=== PATIENT | female | born 1965 ===

== ENCOUNTER 2017-07-17 11:58 | Emergency (ER) | payer OTHER ==
[2017-07-17 12:16] VITALS: O2SAT 100
[2017-07-17] MEDS ORDERED: Oxycodone/Acetaminophen 5/325 mg Tab PO STA (12:57)
--- NOTE | 2017-07-17 12:57 | C.PDOC ---
History Of Present Illness 51-year-old female, presents to the emergency department with complaints of pain to lower teeth #31 and #32. Patient states she had an extraction done two days ago, and was placed on Amoxicillin, Motrin and Tylenol #3 with minimal relief, prompting visit. Denies nausea/vomiting, numbness/weakness. Time Seen by Provider: 07/17/17 12:08 Chief Complaint (Nursing): Dental Pain History Per: Patient History/Exam Limitations: no limitations Past Medical History Reviewed: Historical Data, Nursing Documentation, Vital Signs Vital Signs: Last Vital Signs Temp 98.4 F 07/17/17 13:16 Pulse 68 07/17/17 13:16 Resp 16 07/17/17 13:16 BP 128/82 07/17/17 13:16 Pulse Ox 100 07/17/17 15:55 - Medical History PMH: Depression, HTN Surgical History: Appendectomy, Cholecystectomy Family History: States: No Known Family Hx - Social History Hx Tobacco Use: No Hx Alcohol Use: Yes Hx Substance Use: No - Immunization History Hx Tetanus Toxoid Vaccination: No Hx Influenza Vaccination: No Hx Pneumococcal Vaccination: No Review Of Systems Except As Marked, All Systems Reviewed And Found Negative. Constitutional: Negative for: Fever ENT: Positive for: Other (tooth pain) Respiratory: Negative for: Shortness of Breath Gastrointestinal: Negative for: Vomiting Physical Exam - Physical Exam Appears: Non-toxic, No Acute Distress Skin: Warm, Dry, No Rash Head: Atraumatic, Normacephalic Eye(s): bilateral: Normal Inspection, PERRL, EOMI Nose: Normal Oral Mucosa: Moist Lips: Normal Appearing Teeth: Other (moderate swelling and tenderness +induration to lower right mandible. No fluctuance.) Throat: No Erythema, No Exudate, No Drooling Neck: Normal ROM Chest: Symmetrical Cardiovascular: Rhythm Regular, No Murmur Respiratory: Normal Breath Sounds, No Accessory Muscle Use Extremity: Normal ROM, No Deformity, No Swelling Neurological/Psych: Oriented x3, Normal Speech ED Course And Treatment O2 Sat by Pulse Oximetry: 100 Medical Decision Making Medical Decision Making: Dr. Thompson has examined the patient at bedside and agrees that there is no fluctuance or ability to drain at this time. Patient was switched antibiotics from Amoxicillin to Clindamycin. The patient was instructed to follow up with Dr. Mercado in 24 hours without fail Disposition - Disposition Referrals: Vanessa Mercado, MANSI [Staff Provider] - Disposition: HOME/ ROUTINE Disposition Time: 13:14 Condition: FAIR Additional Instructions: Apply warm compresses to the region. Follow up with Dr. Mercado tomorrow without fail. Prescriptions: Clindamycin [Cleocin] 300 mg PO TID #30 cap oxyCODONE/Acetaminophen [Percocet 5/325 mg Tab] 1 tab PO QID PRN #10 tab PRN Reason: pain Instructions: Tooth Abscess (DC) Forms: [employer] (Armenian) - Clinical Impression Clinical Impression: Dental abscess - Scribe Statement The provider has reviewed the documentation as recorded by the Scribe (Margarita Cuevas) All medical record entries made by the Scribe were at my direction and personally dictated by me. I have reviewed the chart and agree that the record accurately reflects my personal performance of the history, physical exam, medical decision making, and the department course for this patient. I have also personally directed, reviewed, and agree with the discharge instructions and disposition.
[2017-07-17] MEDS ORDERED: Oxycodone/Acetaminophen 5/325 mg Tab ONE (13:12)
[2017-07-17 13:17] VITALS: BP 128/82; PULSE 68; RESP 16; TEMP 98.4
== END 2017-07-17 13:30 | disposition home or self-care (01) ==
LOC: C.ER 11:58
DX: K04.7 Periapical abscess without sinus (principal)

== ENCOUNTER 2018-04-30 17:33 | Inpatient (IN) | payer MEDICAID, OTHER ==
[2018-04-30 17:33] VITALS: BMI 29.1
[2018-04-30] MEDS ORDERED: Sodium Chloride 0.9% 500 ML IV ONE ×2 (18:18→18:24)
[2018-04-30 18:26] LABS: HCG,QUALITATIVE URINE NEGATIVE (NEGATIVE)
[2018-04-30 18:36] LABS: SQUAMOUS EPITHIAL 1 /hpf (0-5); URINE BACTERIA RARE (<OCC); URINE BILIRUBIN NEGATIVE (NEGATIVE); URINE BLOOD NEGATIVE (NEGATIVE); URINE CLARITY Hazy (Clear); URINE COLOR Yellow (YELLOW); URINE GLUCOSE (UA) NORMAL (Normal); URINE LEUKOCYTE ESTERASE NEG Leu/uL (Negative); URINE PROTEIN NEGATIVE (NEGATIVE); URINE UROBILINOGEN NORMAL mg/dL (0.2-1.0)
[2018-04-30 18:40] LABS: BASO # 0.1 K/uL (0.0-0.2); BASO % 0.7 % (0.0-2.0); EOS # 0.1 K/uL (0.0-0.7); EOS % 0.5 % (0.0-4.0); HEMOGLOBIN 13.4 g/dL (11.0-16.0); LYMPH # 2.3 K/uL (1.0-4.3); LYMPH % 16.8 % (20.0-40.0); MEAN CORPUSCULAR HGB CONC 32.3 g/dL (33.0-37.0); MEAN PLATELET VOLUME 9.4 fL (7.2-11.7); MONO # 1.3 K/uL (0.0-0.8); MONO % 9.7 % (0.0-10.0); NEUT # 9.8 K/uL (1.8-7.0); NEUT % 72.3 % (50.0-75.0); RBC 4.62 Mil/uL (3.80-5.20); RED CELL DISTRIBUTION WIDTH 13.2 % (11.5-14.5)
[2018-04-30 18:45] LABS: MEAN CELL VOLUME 89.7 fL (81.0-99.0); WHITE BLOOD COUNT 13.6 K/uL (4.8-10.8)
[2018-04-30 18:54] LABS: ALB/GLOB RATIO 1.6 (1.0-2.1); ALBUMIN 4.2 g/dL (3.5-5.0); ALT/SGPT 32 U/L (9-52); AST/SGOT 21 U/L (14-36); BLOOD UREA NITROGEN 12 mg/dL (7-17); GFR NON-AFRICAN AMERICAN > 60
--- NOTE | 2018-04-30 19:08 | C.PDOC ---
History Of Present Illness 52 year old female with a history of HTN, appendectomy, cholecystectomy, tubal ligation, and ankle surgery presents to the emergency department with complaints of suprapubic abdominal pain for the past 3 days. Patient states that her pain is associated with nausea, urinary frequency, and feeling bloated. Patient denies vomiting, diarrhea, and fever. <Joseph Barrett - Last Filed: 05/01/18 20:58> <Justine Griajlva - Last Filed: 04/30/18 23:26> History Per: Patient History/Exam Limitations: no limitations Onset/Duration Of Symptoms: Days (3) Current Symptoms Are (Timing): Still Present Location Of Pain/Discomfort: Suprapubic Quality Of Discomfort: "Pain" Associated Symptoms: Nausea, Urinary Symptoms (frequency). denies: Fever, Vomiting, Diarrhea <Joseph Barrett - Last Filed: 05/01/18 20:58> Time Seen by Provider: 04/30/18 18:05 Chief Complaint (Nursing): Female Genitourinary Past Medical History Vital Signs: Last Vital Signs Temp 99.8 F H 04/30/18 22:32 Pulse 76 04/30/18 22:32 Resp 04/30/18 22:32 BP 123/76 04/30/18 22:32 Pulse Ox 98 04/30/18 22:32 <Justine Grijalva - Last Filed: 04/30/18 23:26> Reviewed: Historical Data, Nursing Documentation, Vital Signs Vital Signs: Last Vital Signs Temp 101 F H 04/30/18 17:51 Pulse 88 04/30/18 17:51 Resp 04/30/18 17:51 BP 144/84 04/30/18 17:51 Pulse Ox 99 04/30/18 17:51 - Medical History PMH: Depression, HTN Denies: Chronic Kidney Disease Surgical History: Appendectomy, Cholecystectomy Other Surgeries: Tubal ligation, ankle surgery Family History: States: Unknown Family Hx - Social History Hx Tobacco Use: No Hx Alcohol Use: Yes Hx Substance Use: No - Immunization History Hx Tetanus Toxoid Vaccination: No Hx Influenza Vaccination: No Hx Pneumococcal Vaccination: No <Joseph Barrett - Last Filed: 05/01/18 20:58> Review Of Systems Except As Marked, All Systems Reviewed And Found Negative. Constitutional: Negative for: Fever, Chills Gastrointestinal: Positive for: Nausea, Abdominal Pain, Other (bloating). Negative for: Vomiting, Diarrhea Genitourinary: Positive for: Frequency <Joseph Barrett - Last Filed: 05/01/18 20:58> Physical Exam - Physical Exam Appears: Non-toxic, No Acute Distress Skin: Normal Color, Warm, Dry Head: Atraumatic, Normacephalic Eye(s): bilateral: Normal Inspection, PERRL, EOMI Nose: Normal Oral Mucosa: Moist Neck: Normal, Supple Chest: Symmetrical, No Tenderness Cardiovascular: Rhythm Regular, No Murmur Respiratory: Normal Breath Sounds, No Rales, No Rhonchi, No Wheezing Gastrointestinal/Abdominal: Soft, Tenderness (suprapubic), No Guarding, No Rebound Extremity: Normal ROM, No Pedal Edema, No Swelling Neurological/Psych: Oriented x3, Normal Speech, Normal Cognition <Joseph Barrett - Last Filed: 05/01/18 20:58> ED Course And Treatment - Laboratory Results Result Diagrams: 04/30/18 18:32 04/30/18 18:32 Lab Results: Total Bilirubin 0.5 mg/dL (0.2-1.3) 04/30/18 18:32 AST 21 U/L (14-36) 04/30/18 18:32 ALT 32 U/L (9-52) 04/30/18 18:32 Alkaline Phosphatase 72 U/L (38-126) 04/30/18 18:32 Total Protein 6.9 g/dL (6.3-8.3) 04/30/18 18:32 Albumin 4.2 g/dL (3.5-5.0) 04/30/18 18:32 Globulin 2.7 gm/dL (2.2-3.9) 04/30/18 18:32 Albumin/Globulin Ratio 1.6 (1.0-2.1) 04/30/18 18:32 Urine Color Yellow (YELLOW) 04/30/18 18:14 Urine Clarity Hazy (Clear) 04/30/18 18:14 Urine pH 7.0 (5.0-8.0) 04/30/18 18:14 Ur Specific [place] 1.018 (1.003-1.030) 04/30/18 18:14 Urine Protein Negative mg/dL (NEGATIVE) 04/30/18 18:14 Urine Glucose (UA) Normal mg/dL (Normal) 04/30/18 18:14 Urine Ketones Negative mg/dL (NEGATIVE) 04/30/18 18:14 Urine Blood Negative (NEGATIVE) 04/30/18 18:14 Urine Nitrate Negative (NEGATIVE) 04/30/18 18:14 Urine Bilirubin Negative (NEGATIVE) 04/30/18 18:14 Urine Urobilinogen Normal mg/dL (0.2-1.0) 04/30/18 18:14 Ur Leukocyte Esterase Neg Meena/uL (Negative) 04/30/18 18:14 Urine WBC (Auto) < 1 /hpf (0-5) 04/30/18 18:14 Urine RBC (Auto) 1 /hpf (0-3) 04/30/18 18:14 Ur Squamous Epith Cells 1 /hpf (0-5) 04/30/18 18:14 Urine Bacteria Rare (<OCC) 04/30/18 18:14 Urine HCG, Qual Negative (NEGATIVE) 04/30/18 18:14 Urine HCG, Qual Negative (NEGATIVE) 04/30/18 18:14 - CT Scan/US Ct abd/pelvis Other Rad Studies (CT/US): Read By Radiologist, Radiology Report Reviewed CT/US Interpretation: EXAM: CT Abdomen and Pelvis with IV and oral contrast. CLINICAL HISTORY: R/o abscess. TECHNIQUE: Axial computed tomography images of the abdomen and pelvis with intravenous contrast. 0.00 mGy-cm. CONTRAST: With; OMNI 240 & 100MLS VISI 320. COMPARISON: None provided. FINDINGS: LUNG BASES: The lung bases appear clear. No pleural effusions are seen. LIVER: Mi ld hepatomegaly. The liver measured an estimated 16.9 cm in the midclavicular line. Some mild hepatic steatosis is also noted. GALLBLADDER AND BILE DUCTS: Status post cholecystectomy. No biliary ductal dilatation is evident. PANCREAS: Unremarkable. SPLEEN: Unremarkable. ADRENAL GLANDS: Unremarkable. KIDNEYS, URETERS, AND BLADDER: The kidneys appear within normal limits. There is no hydr onephrosis or hydroureter. No urinary calculi are seen. The urinary bladder is normal in size and configuration. STOMACH AND BOWEL: Mucosal wall thickening seen in the mid body of the stomach and antrum compatible with gastritis. No evidence of bowel obstruction. No evidence suggesting enteritis. Diverticulosis coli identified in the sigmoid region with associated mucosal wall thickening and pericolonic stranding compatible with acute diverticulitis. Pericolonic inflammatory stranding extends into the mesenteric fat of the left adnexal region and posterior inferior left pelvis compatible with phlegmon formation. No definite abscess formation. No microperforation detected. APPENDIX: No evidence of acute appendicitis on CT examination. PERITONEUM: No free fluid. No free air. LYMPH NODES: No lymphadenopathy is evident. REPRODUCTIVE: Unremarkable as visualized. VASCULATURE: No evidence of abdominal aortic aneurysm. BONES: No aggressive appearing osseous lesion. No acute osseous pathology evident. IMPRESSION: 1. Acute diverticulitis of the sigmoid colon with adjacent mesenteritis/phlegmon of the left adnexal region and posterior inferior left pelvis. 2. Evidence of gastritis. 3. Hepatomegaly with associated hepatic steatosis. . Electronically signed on Apr 30, 2018 10:03:50 PM EST by: Erick Ross M.D., CHINTAN Certified By ABR & CBC[employer]. Fellowship Trained MRI and CT Specialist - Physician Consult Information Physician Contacted: Walter Velásquez Outcome Of Conversation: Case presented to Dr Velásquez for admission. Blood cx obtained and IV cipro and flagyl initiated <Justine Grijalva - Last Filed: 04/30/18 23:26> - Laboratory Results Result Diagrams: 05/01/18 11:45 05/01/18 11:45 Lab Results: Total Bilirubin 0.5 mg/dL (0.2-1.3) 04/30/18 18:32 AST 21 U/L (14-36) 04/30/18 18:32 ALT 32 U/L (9-52) 04/30/18 18:32 Alkaline Phosphatase 72 U/L (38-126) 04/30/18 18:32 Total Protein 6.9 g/dL (6.3-8.3) 04/30/18 18:32 Albumin 4.2 g/dL (3.5-5.0) 04/30/18 18:32 Globulin 2.7 gm/dL (2.2-3.9) 04/30/18 18:32 Albumin/Globulin Ratio 1.6 (1.0-2.1) 04/30/18 18:32 Urine Color Yellow (YELLOW) 04/30/18 18:14 Urine Clarity Hazy (Clear) 04/30/18 18:14 Urine pH 7.0 (5.0-8.0) 04/30/18 18:14 Ur Specific [place] 1.018 (1.003-1.030) 04/30/18 18:14 Urine Protein Negative mg/dL (NEGATIVE) 04/30/18 18:14 Urine Glucose (UA) Normal mg/dL (Normal) 04/30/18 18:14 Urine Ketones Negative mg/dL (NEGATIVE) 04/30/18 18:14 Urine Blood Negative (NEGATIVE) 04/30/18 18:14 Urine Nitrate Negative (NEGATIVE) 04/30/18 18:14 Urine Bilirubin Negative (NEGATIVE) 04/30/18 18:14 Urine Urobilinogen Normal mg/dL (0.2-1.0) 04/30/18 18:14 Ur Leukocyte Esterase Neg Meena/uL (Negative) 04/30/18 18:14 Urine WBC (Auto) < 1 /hpf (0-5) 04/30/18 18:14 Urine RBC (Auto) 1 /hpf (0-3) 04/30/18 18:14 Ur Squamous Epith Cells 1 /hpf (0-5) 04/30/18 18:14 Urine Bacteria Rare (<OCC) 04/30/18 18:14 Urine HCG, Qual Negative (NEGATIVE) 04/30/18 18:14 Urine HCG, Qual Negative (NEGATIVE) 04/30/18 18:14 O2 Sat by Pulse Oximetry: 99 (RA) Pulse Ox Interpretation: Normal <Joseph Barrett - Last Filed: 05/01/18 20:58> Medical Decision Making Medical Decision Making: Plan: CT Abdomen and Pelvis Chemistry CBC NaCl IV Fluids Tylenol 650mg PO Urine Culture Influenza Serology Urine Urinalysis Assessment: Suprapubic pain, rule out UTI <Joseph Barrett - Last Filed: 05/01/18 20:58> Disposition - Disposition Disposition Time: 23:26 <Justine Grijalva - Last Filed: 04/30/18 23:26> <Joseph Barrett - Last Filed: 05/01/18 20:58> - Disposition Disposition: HOSPITALIZED Condition: STABLE - Clinical Impression Clinical Impression: Acute diverticulitis - Scribe Statement The provider has reviewed the documentation as recorded by the Scribe (Vijay Avila) Provider Attestation: All medical record entries made by the Scribe were at my direction and personally dictated by me. I have reviewed the chart and agree that the record accurately reflects my personal performance of the history, physical exam, medical decision making, and the department course for this patient. I have also personally directed, reviewed, and agree with the discharge instructions and disposition. <Joseph Barrett - Last Filed: 05/01/18 20:58> Physician Patient Turnover Patient Signed Over To: Roverto Mancera <Joseph Barrett - Last Filed: 05/01/18 20:58>
[2018-04-30] MEDS ORDERED: Iohexol 240 (50 ml) PO ONE (19:09)
[2018-04-30] MEDS ORDERED: Iohexol 240 (50 ml) ONE (19:23)
[2018-04-30] MEDS ORDERED: Iodixanol 320 MG/ML 100 ML BOTTLE IV ONE (20:03)
[2018-04-30] MEDS ORDERED: Ciprofloxacin 400mg/200ml D5W 400 MG/200 ML BAG IV STA (22:49)
[2018-04-30] MEDS ORDERED: Ciprofloxacin 400mg/200ml D5W 400 MG/200 ML BAG IVPB ONE (22:56)
[2018-05-01] MEDS ORDERED: Sodium Chloride 0.9% 1,000 ML IV SCH (00:45)
--- NOTE | 2018-05-01 01:29 | CP.PCM.HP ---
<John Gandhi - Last Filed: 05/01/18 06:20> History of Present Illness - History of Present Illness History of Present Illness: PGY-[address] Velásquez Patient is a 52 year old female with PMHx HTN who presents with 3 days of abdominal pain. Patient states she has been having abdominal pain x3 days, worse in LLQ, denies n/v/d/c. Pain has been constant, and worsened, prompiting patient to present to ED. She also reports subjective fevers/chills which began today. She reports increased bloating and cramping pain. Reports last BM yesterday morning was normal, without diarrhea, blood, or changes in color. Pt without prior history of diverticulitis, has not had pain like this in the past. Patient has been tolerating regular diet. Patient does also report that over the past year she has felt more fatigued, with weight gain, and occasional myalgias, though no acute changes. Medical Hx: HTN Meds: Patient unsure of HTN meds (possibly Losartan 50 mg HS) - please confirm with pharmacy in AM Surgical hx: Lipoma removal, lap appy, lap paresh, tubal ligation, foot surgery Allergies: NKA Family hx: No known family hx Social hx: Denies tobacco use, occasional ETOH, uses marijuana recreationally and for insomnia/anxiety PMD: Dr. Mendes Code: Full Code Present on Admission - Present on Admission Any Indicators Present on Admission: No Review of Systems - Constitutional Constitutional: Chills, Fever. absent: Fatigue - EENT Eyes: absent: Blurred Vision, Photophobia - Cardiovascular Cardiovascular: absent: Chest Pain, Dyspnea, Edema - Respiratory Respiratory: absent: Dyspnea, Hemoptysis - Gastrointestinal Gastrointestinal: Abdominal Pain (widespread abdominal pain, worse LLQ), Bloating. absent: Constipation, Diarrhea, Nausea, Vomiting - Genitourinary Genitourinary: absent: Dysuria, Flank Pain - Musculoskeletal Musculoskeletal: absent: Back Pain, Neck Pain - Neurological Neurological: absent: Dizziness, Numbness, Focal Weakness - Psychiatric Psychiatric: absent: Anxiety, Depression Past Patient History - Infectious Disease Hx of Infectious Diseases: None - Past Medical History & Family History Past Medical History?: Yes - Past Social History Smoking Status: Never Smoked - CARDIAC Hx Hypertension: Yes - PULMONARY Hx Respiratory Disorders: No - HEENT Hx HEENT Problems: No - RENAL Hx Chronic Kidney Disease: No - ENDOCRINE/METABOLIC Hx Endocrine Disorders: No - HEMATOLOGICAL/ONCOLOGICAL Hx Blood Disorders: No - INTEGUMENTARY Hx Dermatological Problems: No - MUSCULOSKELETAL/RHEUMATOLOGICAL Hx Musculoskeletal Disorders: No Other/Comment: sciatica - GASTROINTESTINAL Hx Gastrointestinal Disorders: No - GENITOURINARY/GYNECOLOGICAL Hx Genitourinary Disorders: No - PSYCHIATRIC Hx Depression: Yes Hx Substance Use: No - SURGICAL HISTORY Hx Appendectomy: Yes Hx Cholecystectomy: Yes - ANESTHESIA Hx Anesthesia: Yes Hx Anesthesia Reactions: No Meds Allergies/Adverse Reactions: Allergies Allergy/AdvReac Type Severity Reaction Status Date / Time No Known Allergies Allergy Verified 04/30/18 17:52 Physical Exam - Constitutional Appears: Non-toxic, No Acute Distress - Head Exam Head Exam: ATRAUMATIC, NORMOCEPHALIC - Eye Exam Eye Exam: EOMI, Normal appearance - ENT Exam ENT Exam: Mucous Membranes Moist - Neck Exam Neck exam: Positive for: Full Rom - Respiratory Exam Respiratory Exam: Clear to Auscultation Bilateral, NORMAL BREATHING PATTERN. absent: Rhonchi, Wheezes - Cardiovascular Exam Cardiovascular Exam: REGULAR RHYTHM, +S1, +S2 - GI/Abdominal Exam GI & Abdominal Exam: Distended, Hyperactive Bowel Sounds, Soft, Tenderness (widespread tenderness, worse LLQ). absent: Hernia, Rebound - Extremities Exam Extremities exam: Positive for: normal inspection. Negative for: pedal edema, tenderness - Neurological Exam Neurological exam: Alert, CN II-XII Intact, Oriented x3 - Psychiatric Exam Psychiatric exam: Normal Affect, Normal Mood - Skin Skin Exam: Dry, Intact, Normal Color Results - Vital Signs Recent Vital Signs: Last Vital Signs Temp 99.3 F 05/01/18 00:28 Pulse 75 05/01/18 00:28 Resp 16 05/01/18 00:28 BP 125/79 05/01/18 00:28 Pulse Ox 96 05/01/18 00:28 - Labs Result Diagrams: 04/30/18 18:32 04/30/18 18:32 Labs: Laboratory Results - last 24 hr 04/30/18 04/30/18 04/30/18 18:14 18:32 18:32 WBC 13.6 H D RBC 4.62 Hgb 13.4 Hct 41.4 MCV 89.7 D MCH 29.0 MCHC 32.3 L RDW 13.2 Plt Count 244 MPV 9.4 Neut % (Auto) 72.3 Lymph % (Auto) 16.8 L [place] % (Auto) 9.7 Eos % (Auto) 0.5 Baso % (Auto) 0.7 Neut # (Auto) 9.8 H Lymph # (Auto) 2.3 [place] # (Auto) 1.3 H Eos # (Auto) 0.1 Baso # (Auto) 0.1 Sodium 137 Potassium 4.0 Chloride 101 Carbon Dioxide 30 Anion Gap 10 BUN 12 Creatinine 0.7 Est GFR ( Amer) > 60 Est GFR (Non-Af Amer) > 60 Random Glucose 91 Calcium 9.0 Total Bilirubin 0.5 AST 21 ALT 32 Alkaline Phosphatase 72 Total Protein 6.9 Albumin 4.2 Globulin 2.7 Albumin/Globulin Ratio 1.6 Urine Color Yellow Urine Clarity Hazy Urine pH 7.0 Ur Specific [place] 1.018 Urine Protein Negative Urine Glucose (UA) Normal Urine Ketones Negative Urine Blood Negative Urine Nitrate Negative Urine Bilirubin Negative Urine Urobilinogen Normal Ur Leukocyte Esterase Neg Urine WBC (Auto) < 1 Urine RBC (Auto) 1 Ur Squamous Epith Cells 1 Urine Bacteria Rare Urine HCG, Qual Negative Influenza Typ A,B (EIA) 04/30/18 19:27 WBC RBC Hgb Hct MCV MCH MCHC RDW Plt Count MPV Neut % (Auto) Lymph % (Auto) [place] % (Auto) Eos % (Auto) Baso % (Auto) Neut # (Auto) Lymph # (Auto) [place] # (Auto) Eos # (Auto) Baso # (Auto) Sodium Potassium Chloride Carbon Dioxide Anion Gap BUN Creatinine Est GFR ( Amer) Est GFR (Non-Af Amer) Random Glucose Calcium Total Bilirubin AST ALT Alkaline Phosphatase Total Protein Albumin Globulin Albumin/Globulin Ratio Urine Color Urine Clarity Urine pH Ur Specific [place] Urine Protein Urine Glucose (UA) Urine Ketones Urine Blood Urine Nitrate Urine Bilirubin Urine Urobilinogen Ur Leukocyte Esterase Urine WBC (Auto) Urine RBC (Auto) Ur Squamous Epith Cells Urine Bacteria Urine HCG, Qual Influenza Typ A,B (EIA) Negative for flu a/b Assessment & Plan - Assessment and Plan (Free Text) Assessment: Diverticulitis, gastritis Ct abd/pelvis 04/30 - IMPRESSION: 1. Acute diverticulitis of the sigmoid colon with adjacent mesenteritis/phlegmon of the left adnexal region and posterior inferior left pelvis. 2. Evidence of gastritis. 3. Hepatomegaly with associated hepatic steatosis. -Rocephin 1gm IV Daily -Flagyl 250 mg IV Q6 -NS @ 100 cc/hr -NPO, advance diet as tolerated -F/u Urine, blood cultures PPx -DVT ppx: Heparin 5000 UC SC Q8 Assessment and plan d/w Dr. Christen Gandhi, PGY-1 <Walter Velásquez P - Last Filed: 05/15/18 08:38> Results - Vital Signs Recent Vital Signs: Last Vital Signs Temp 98.2 F 05/11/18 08:22 Pulse 65 05/11/18 08:22 Resp 20 05/11/18 08:22 BP 113/77 05/11/18 08:22 Pulse Ox 95 05/11/18 08:22 - Labs Result Diagrams: 05/11/18 07:00 05/11/18 07:00 Attending/Attestation - Attestation I have personally seen and examined this patient.: Yes I have fully participated in the care of the patient.: Yes I have reviewed all pertinent clinical information: Yes Notes (Text): 05/15/18 08:38 Assessed patient with the resident and agree with the plan.
[2018-05-01] MEDS: metroNIDAZOLE IV 500 mg/100 ml 250 MG in Premixed IV 1 EA IVPB SCH ×2 (06:59→07:00)
--- NOTE | 2018-05-01 07:37 | CP.PCM.PN ---
<Keya Lees V - Last Filed: 05/01/18 18:42> Objective - Vital Signs/Intake and Output Vital Signs (last 24 hours): Temp Pulse Resp BP Pulse Ox 98 F 77 20 126/80 97 05/01/18 15:53 05/01/18 15:53 05/01/18 15:53 05/01/18 15:53 05/01/18 15:53 - Medications Medications: Current Medications Heparin Sodium (Porcine) (Heparin) 5,000 units SC Q8 [facility] Last Admin: 05/01/18 15:39 Dose: Not Given Sodium Chloride (Sodium Chloride 0.9%) 1,000 mls @ 125 mls/hr IV .Q8H [facility] Last Admin: 05/01/18 18:33 Dose: Not Given Piperacillin Sod/Tazobactam Sod (Zosyn 3.375 Gm Iv Premix) 3.375 gm in 50 mls @ 100 mls/hr IVPB Q6H [facility]; Protocol Last Admin: 05/01/18 17:30 Dose: 100 mls/hr Metronidazole (Flagyl) 500 mg in 100 mls @ 100 mls/hr IVPB Q8H [facility]; Protocol Morphine Sulfate (Morphine) 2 mg IVP Q4 PRN PRN Reason: Pain, severe (8-10) Ondansetron HCl (Zofran Inj) 4 mg IVP Q6 PRN PRN Reason: Nausea/Vomiting Pantoprazole Sodium (Protonix Inj) 40 mg IVP Q12H [facility] Last Admin: 05/01/18 11:56 Dose: 40 mg - Labs Labs: 05/01/18 11:45 05/01/18 11:45 PT 14.9 SECONDS (9.7-12.2) H 05/01/18 11:45 INR 1.4 05/01/18 11:45 APTT 35 SECONDS (21-34) H 05/01/18 11:45 Attending/Attestation - Attestation I have personally seen and examined this patient.: Yes I have fully participated in the care of the patient.: Yes I have reviewed all pertinent clinical information, including history, physical exam and plan: Yes Notes (Text): 52 year old female with history of hypertension and history of multiple abdominal surgeries including laparoscopic appendectomy, cholecystectomy, tubal ligation and foot surgery who presents for left lower quadrant pain for the past 3 days. We reviewed her medications at bedside that she was taking at home. She did attempt to use 3 tabs of Keflex 500 as well as meloxicam to try to reduce her pain. We did educate her at bedside to not use an NSAID in light of abdominal pain given that she may have an ulcer or gastritis which could be worsened by her NSAID use. She reports that she did have a prior endoscopy completed Dr. Calix's office [facility] about 2 years ago for abdominal bloating however he did not follow-up in regards to the report., 1. Acute diverticulitis of sigmoid colon Phlegmon of adjacent left adnexal region Assessment/plan * GI on board help appreciated * General surgery on board help appreciated * Noted at the time of my round prelim report of CAT scan was available noted for acute diverticulitis of sigmoid colon with adjacent mesenteritis/phlegmon of left adnexal region and portion of inferior left pelvis. Gastritis. Hepatomegaly with hepatic steatosis. * Official CAT scan report from May 01, 2018: Acute uncomplicated sigmoid diverticulitis. Severe circumferential mural thickening in the gastric pylorus is nonspecific could be correlated to nonspecific gastritis. Mild hepatomegaly and fatty liver. * We switched her antibiotics from Cipro and Flagyl to Zosyn for increased coverage * Note no NSAIDs * We did add his pain as needed morphine 2 mg IV every 4 for severe pain * Added Protonix 40 mg IV every 12 hours GI prophylaxis in light of her gastritis * Added Zofran 4 mg IV every 6 as needed for her nausea * Continue her IV fluids * In addition to her is Zosyn 3.375 IV every 6 started on May 01, 2018 I have added back to Flagyl 500 mg IV q. 8 per recommendation by GI. * Note patient denies any prior history of any diverticulitis. She is a obese lady. And she is not had her colon cancer screening thus far * T-max 101 04/30/18 2. History of hypertension Assessment/plan * Patient is currently normotensive. And is currently on IV fluids. We will continue to monitor. * Continue to monitor 3. Obesity Assessment/plan * hgba1c, lipid panel, tsh 4. Prophylaxis: * Heparin 5000 unit SC Q8 * Protonix 40mg IV BID * NPO diet * NS 125cc/hr Disposition: patient is NPO. No Nsaids in light of diverticulitis. Continve IV abx. Use ice to bring down fever. GI and general surgery on board. <Jada Morales - Last Filed: 05/01/18 19:48> Subjective - Date & Time of Evaluation Date of Evaluation: 05/01/18 Time of Evaluation: 07:37 - Subjective Subjective: Progress Note for Hospitalist service Patient seen and examined at bedside. She states she has persistent left lower abdominal pain which initially started as pain shooting up from her rectal area for the past 4 days. She states she took Meloxicam at home and Keflex to help with her abdominal pain. She states she had a endoscopy with Dr. Duglas Valentin 2 years ago, but has never had a colonoscopy before. She admits to associated nausea, without vomiting. She states she had one loose stool today. She com plains of mild pain with urination. She denies headache, dizziness, chest pain, shortness of breath, palpitations, leg pain. Objective - Vital Signs/Intake and Output Vital Signs (last 24 hours): Temp Pulse Resp BP Pulse Ox 99.2 F 80 16 124/81 99 05/01/18 06:57 05/01/18 06:57 05/01/18 06:57 05/01/18 06:57 05/01/18 06:57 - Medications Medications: Current Medications Heparin Sodium (Porcine) (Heparin) 5,000 units SC Q8 [facility] Last Admin: 05/01/18 06:19 Dose: 5,000 units Sodium Chloride (Sodium Chloride 0.9%) 1,000 mls @ 100 mls/hr IV .Q10H [facility] Last Admin: 05/01/18 00:45 Dose: 100 mls/hr Ceftriaxone Sodium 1 gm/ (Sodium Chloride) 100 mls @ 100 mls/hr IVPB DAILY [facility]; Protocol Metronidazole 250 mg/ (Miscellaneous) 50 mls @ 100 mls/hr IVPB Q8H [facility]; [place]ia col Last Admin: 05/01/18 07:00 Dose: 100 mls/hr - Labs Labs: 04/30/18 18:32 04/30/18 18:32 - Constitutional Appears: Well, Non-toxic, Other (Mild painful distress) - Head Exam Head Exam: ATRAUMATIC, NORMOCEPHALIC - Eye Exam Eye Exam: EOMI, PERRL - ENT Exam ENT Exam: Mucous Membranes Moist - Neck Exam Neck Exam: Full ROM. absent: Tenderness - Respiratory Exam Respiratory Exam: Clear to Ausculation Bilateral, NORMAL BREATHING PATTERN. absent: Rales, Rhonchi, Wheezes, Respiratory Distress, Stridor - Cardiovascular Exam Cardiovascular Exam: REGULAR RHYTHM, +S1, +S2. absent: Gallop, Rubs, Murmur - GI/Abdominal Exam GI & Abdominal Exam: Soft, Tenderness (Left lower quadrant ), Normal Bowel Sounds - Extremities Exam Extremities Exam: Normal Capillary Refill. absent: Calf Tenderness, Pedal Edema Additional comments: Left ankle scar from surgery - Back Exam Back Exam: absent: CVA tenderness (L), CVA tenderness (R) - Neurological Exam Neurological Exam: Alert, Awake, Oriented x3 - Psychiatric Exam Psychiatric exam: Normal Affect, Normal Mood - Skin Skin Exam: Dry, Intact, Warm Assessment and Plan - Assessment and Plan (Free Text) Assessment: 52 year old female with history of hypertension, laparoscopic appendectomy, cholecystectomy, tubal ligation and foot surgery who presents for left lower quadrant pain, found to have acute diverticulitis with phlegmon of left adnexal region on imaging. Plan: Acute diverticulitis of sigmoid colon Phlegmon of adjacent left adnexal region CT abdomen/pelvis Preliminary report: acute diverticulitis of sigmoid colon with adjacent mesenteritis/phlegmon of left adnexal region and portion of inferior left pelvis. Gastritis. Hepatomegaly with hepatic steatosis. CT abdomen/pelvis official report: Acute uncomplicated sigmoid diverticulitis.Severe circumferential mural thickening in the gastric pylorus is nonspecific and could be related to nonspecific gastritis however correlation with the EGD may be performed if clinically indicated. Mild hepatomegaly and fatty liver. CXR: no acute disease Keep NPO White count uptrending from 13.6 to 16.8 with bands of 2 Lipase 28 Follow up blood and urine culture GI Dr. Mota consulted, help appreciated follow up stool occult blood Needs outpatient colonoscopy 8- 12 weeks Bowel rest followed by clear liquid diet and advance as tolerated Recommended addition of Flagyl with 14 days of treatment Surgery Dr. Ames consulted, help appreciated Recommend continue IV antibiotic and repeat CT Morphine 2mg IV Q4 PRN NS IV fluids @ 125cc/hr Zosyn 3.375g IV Q6 Flagyl 500mg Q8 Protonix 40mg IV q12 History of hypertension Continue to monitor Not on medications here - normotensive Prophylaxis: Heparin 5000 unit SC Q8 Protonix 40mg IV BID NPO diet Case discussed with Dr. Yoana Morales, PGY1
--- NOTE | 2018-05-01 09:31 | CP.PCM.CON ---
<Nicole Decker P - Last Filed: 05/01/18 17:35> History of Present Illness - History of Present Illness History of Present Illness: Consult note for Dr. Ames. HPI: 52 year old Female with past surgical history of appendectomy, cholecystectomy, and tubal ligaton presents complaining of lower abdominal pain (LLQ>RLQ) that began 3 days prior to arrival. Surgery was consulted for diverti culitis with adjacent phlegmon of posterior inferior L pelvis on CT scan. Patient describes pain as constant and bloating. Pain worsens with movement. Eating does not worsen pain. Associated symptoms include nausea, urinary frequency, dysuria, fever, chills, body aches and one episode of non-bloody diarrhea this morning. Treatment with OTC cranberry pills and left over cephalexin 500mg from a previous infection provided no improvement of symptoms. Meloxicam 15mg did provide relief form body aches. Medical Hx: HTN, MDD, anxiety, chronic body pain Meds: amlodepine 5mg PO daily, meloxicam 15mg PO daily, ibuprofen 800mg TID daily Surgical hx: Lipoma removal (1989), lap appendectomy (1988), lap cholecystectomy (2004), tubal ligation (1989), L ankle surgery (2017) Allergies: NKDA Family hx: Mother- Asthma, HTN Social hx: Denies tobacco use, denies ETOH, uses marijuana recreationally and for insomnia/anxiety Review of Systems - Review of Systems All systems: reviewed and no additional remarkable complaints except (as per H PI) Past Patient History - Infectious Disease Hx of Infectious Diseases: None - Past Medical History & Family History Past Medical History?: Yes - Past Social History Smoking Status: Never Smoked - CARDIAC Hx Hypertension: Yes - PULMONARY Hx Respiratory Disorders: No - HEENT Hx HEENT Problems: No - RENAL Hx Chronic Kidney Disease: No - ENDOCRINE/METABOLIC Hx Endocrine Disorders: No - HEMATOLOGICAL/ONCOLOGICAL Hx Blood Disorders: No - INTEGUMENTARY Hx Dermatological Problems: No - MUSCULOSKELETAL/RHEUMATOLOGICAL Hx Musculoskeletal Disorders: No Other/Comment: sciatica - GASTROINTESTINAL Hx Gastrointestinal Disorders: No - GENITOURINARY/GYNECOLOGICAL Hx Genitourinary Disorders: No - PSYCHIATRIC Hx Depression: Yes Hx Substance Use: No - SURGICAL HISTORY Hx Appendectomy: Yes Hx Cholecystectomy: Yes - ANESTHESIA Hx Anesthesia: Yes Hx Anesthesia Reactions: No Meds Allergies/Adverse Reactions: Allergies Allergy/AdvReac Type Severity Reaction Status Date / Time No Known Allergies Allergy Verified 04/30/18 17:52 - Medications Medications: Current Medications Heparin Sodium (Porcine) (Heparin) 5,000 units SC Q8 [facility] Last Admin: 05/01/18 06:19 Dose: 5,000 units Ceftriaxone Sodium 1 gm/ (Sodium Chloride) 100 mls @ 100 mls/hr IVPB DAILY [facility]; Protocol Last Admin: 05/01/18 09:24 Dose: 100 mls/hr Metronidazole 250 mg/ (Miscellaneous) 50 mls @ 100 mls/hr IVPB Q8H [facility]; Protocol Last Admin: 05/01/18 07:00 Dose: 100 mls/hr Sodium Chloride (Sodium Chloride 0.9%) 1,000 mls @ 125 mls/hr IV .Q8H [facility] Physical Exam - Head Exam Head Exam: ATRAUMATIC, NORMOCEPHALIC - Eye Exam Eye Exam: EOMI, Normal appearance, PERRL - ENT Exam ENT Exam: Mucous Membranes Moist - Neck Exam Neck exam: Positive for: Normal Inspection - Respiratory Exam Respiratory Exam: Clear to Auscultation Bilateral, NORMAL BREATHING PATTERN. absent: Rales, Rhonchi, Wheezes, Respiratory Distress - Cardiovascular Exam Cardiovascular Exam: REGULAR RHYTHM, +S1, +S2. absent: Tachycardia - GI/Abdominal Exam GI & Abdominal Exam: Normal Bowel Sounds, Soft, Tenderness (LLQ). absent: Distended, Guarding, Rebound Additional comments: multiple well healed surgical scars to abdomen - Extremities Exam Extremities exam: Positive for: full ROM, normal inspection, pedal pulses present. Negative for: calf tenderness, pedal edema, tenderness - Neurological Exam Neurological exam: Alert, Oriented x3 - Psychiatric Exam Psychiatric exam: Normal Affect, Normal Mood - Skin Skin Exam: Dry, Normal Color, Warm Results - Vital Signs Recent Vital Signs: Last Vital Signs Temp 99.2 F 05/01/18 06:57 Pulse 80 05/01/18 06:57 Resp 16 05/01/18 06:57 BP 124/81 05/01/18 06:57 Pulse Ox 99 05/01/18 06:57 - Labs Result Diagrams: 05/01/18 11:45 05/01/18 11:45 Labs: Laboratory Results - last 24 hr 04/30/18 04/30/18 04/30/18 18:14 18:32 18:32 WBC 13.6 H D RBC 4.62 Hgb 13.4 Hct 41.4 MCV 89.7 D MCH 29.0 MCHC 32.3 L RDW 13.2 Plt Count 244 MPV 9.4 Neut % (Auto) 72.3 Lymph % (Auto) 16.8 L Stone % (Auto) 9.7 Eos % (Auto) 0.5 Baso % (Auto) 0.7 Neut # (Auto) 9.8 H Lymph # (Auto) 2.3 Stone # (Auto) 1.3 H Eos # (Auto) 0.1 Baso # (Auto) 0.1 Sodium 137 Potassium 4.0 Chloride 101 Carbon Dioxide 30 Anion Gap 10 BUN 12 Creatinine 0.7 Est GFR ( Amer) > 60 Est GFR (Non-Af Amer) > 60 Random Glucose 91 Calcium 9.0 Total Bilirubin 0.5 AST 21 ALT 32 Alkaline Phosphatase 72 Total Protein 6.9 Albumin 4.2 Globulin 2.7 Albumin/Globulin Ratio 1.6 Urine Color Yellow Urine Clarity Hazy Urine pH 7.0 Ur Specific [place] 1.018 Urine Protein Negative Urine Glucose (UA) Normal Urine Ketones Negative Urine Blood Negative Urine Nitrate Negative Urine Bilirubin Negative Urine Urobilinogen Normal Ur Leukocyte Esterase Neg Urine WBC (Auto) < 1 Urine RBC (Auto) 1 Ur Squamous Epith Cells 1 Urine Bacteria Rare Urine HCG, Qual Negative Influenza Typ A,B (EIA) 04/30/18 19:27 WBC RBC Hgb Hct MCV MCH MCHC RDW Plt Count MPV Neut % (Auto) Lymph % (Auto) Stone % (Auto) Eos % (Auto) Baso % (Auto) Neut # (Auto) Lymph # (Auto) Stone # (Auto) Eos # (Auto) Baso # (Auto) Sodium Potassium Chloride Carbon Dioxide Anion Gap BUN Creatinine Est GFR ( Amer) Est GFR (Non-Af Amer) Random Glucose Calcium Total Bilirubin AST ALT Alkaline Phosphatase Total Protein Albumin Globulin Albumin/Globulin Ratio Urine Color Urine Clarity Urine pH Ur Specific [place] Urine Protein Urine Glucose (UA) Urine Ketones Urine Blood Urine Nitrate Urine Bilirubin Urine Urobilinogen Ur Leukocyte Esterase Urine WBC (Auto) Urine RBC (Auto) Ur Squamous Epith Cells Urine Bacteria Urine HCG, Qual Influenza Typ A,B (EIA) Negative for flu a/b Assessment & Plan - Assessment and Plan (Free Text) Assessment: 52 year old F with diverticulitis of sigmoid colon with adjacent phlegmon Plan: -Continue IV abx -NPO until sx improve -repeat CT scan -Monitor labs Further recs as per Dr. Ames. Nicole Decker, PGY1 <Dank Ames - Last Filed: 05/05/18 18:03> Meds - Medications Medications: Current Medications Acetaminophen (Tylenol 325mg Tab) 650 mg PO Q4 PRN PRN Reason: Pain, Mild (1-3) Amlodipine Besylate (Norvasc) 5 mg PO DAILY [facility] Last Admin: 05/05/18 10:20 Dose: 5 mg Heparin Sodium (Porcine) (Heparin) 5,000 units SC Q8 [facility] Last Admin: 05/05/18 14:27 Dose: 5,000 units Hydromorphone HCl (Dilaudid) 0.5 mg IVP Q4H PRN PRN Reason: Pain, severe (8-10) Last Admin: 05/05/18 14:46 Dose: 0.5 mg Piperacillin Sod/Tazobactam Sod (Zosyn 3.375 Gm Iv Premix) 3.375 gm in 50 mls @ 100 mls/hr IVPB Q6H [facility]; Protocol Last Admin: 05/05/18 16:39 Dose: 100 mls/hr Metronidazole (Flagyl) 500 mg in 100 mls @ 100 mls/hr IVPB Q8H [facility]; Protocol Last Admin: 05/05/18 11:45 Dose: 100 mls/hr Potassium Chloride/Dextrose/Sod Cl (Potassium Chl 20 Meq In D5-1/2ns) 1,000 mls @ 125 mls/hr IV .Q8H [facility] Last Admin: 05/05/18 10:20 Dose: Not Given BUPIVACAINE 0.125%/0.9% NACL (Bupivacaine-Ns 0.125% On-Q Traffic Control Technician) 600 mls @ 7 mls/hr IJ ONCE ONE Stop: 05/09/18 00:42 Pantoprazole Sodium (Protonix Inj) 40 mg IVP Q12H [facility] Last Admin: 05/05/18 10:20 Dose: 40 mg Tramadol HCl (Ultram) 50 mg PO TID PRN PRN Reason: Pain, moderate (4-7) Results - Vital Signs Recent Vital Signs: Last Vital Signs Temp 99.1 F 05/05/18 15:00 Pulse 104 H 05/05/18 15:00 Resp 20 05/05/18 15:00 BP 136/84 05/05/18 15:00 Pulse Ox 94 L 05/05/18 15:00 - Labs Result Diagrams: 05/05/18 07:51 05/05/18 07:51 Labs: Laboratory Results - last 24 hr 05/05/18 05/05/18 07:51 07:51 WBC 17.2 H RBC 4.75 Hgb 14.0 Hct 42.6 MCV 89.8 MCH 29.4 MCHC 32.7 L RDW 13.5 Plt Count 369 MPV 9.4 Neut % (Auto) 82.2 H Lymph % (Auto) 8.0 L Stone % (Auto) 9.5 Eos % (Auto) 0.1 Baso % (Auto) 0.2 Neut # (Auto) 14.2 H Lymph # (Auto) 1.4 Stone # (Auto) 1.6 H Eos # (Auto) 0.0 Baso # (Auto) 0.0 Neutrophils % (Manual) 86 H Lymphocytes % (Manual) 5 L Monocytes % (Manual) 9 Platelet Estimate Normal RBC Morphology Normal Sodium 133 Potassium 3.7 Chloride 98 Carbon Dioxide 27 Anion Gap 11 BUN 7 Creatinine 0.5 L Est GFR ( Amer) > 60 Est GFR (Non-Af Amer) > 60 Random Glucose 175 H D Calcium 8.3 L Phosphorus 2.0 L Magnesium 1.9 Total Bilirubin 0.6 AST 28 ALT 25 Alkaline Phosphatase 75 Total Protein 5.9 L Albumin 3.3 L Globulin 2.6 Albumin/Globulin Ratio 1.2 Attending/Attestation - Attestation I have personally seen and examined this patient.: Yes I have fully participated in the care of the patient.: Yes I have reviewed all pertinent clinical information: Yes Notes (Text): Pt was seen and examined at bedside Agree with above note and assessment Pt with Abdominal pain and nausea Abdomen: soft, distended, tender in LLQ Labs and Radiology reviewed Ass: Diverticulitis with abscess, abdominal Pain Plan : IV antibiotics NPO, IVF NG tube insertion if vomits c.w home meds Plan d.w pt in detail Risk and benefit explained in detail.
[2018-05-01] MEDS ORDERED: Piperacillin/Tazobact 3.375 gm 100 ML IVPB ONE (10:49)
--- NOTE | 2018-05-01 10:55 | CT ---
Date of service: 04/30/2018 PROCEDURE: CT Abdomen and Pelvis with contrast HISTORY: r/o abscess COMPARISON: None available. TECHNIQUE: CT scan of the abdomen and pelvis was performed after administration of intravenous contrast. Oral contrast was administered. Coronal and sagittal reformatted images were obtained. Contrast dose: 100 mL Visipaque 320 Radiation dose: Total exam DLP = 1069.41 mGy-cm. This CT exam was performed using one or more of the following dose reduction techniques: Automated exposure control, adjustment of the mA and/or kV according to patient size, and/or use of iterative reconstruction technique. FINDINGS: LOWER THORAX: The visualized lungs are clear. LIVER: Mild hepatomegaly and fatty liver. Normal homogeneous enhancement. No gross lesion or ductal dilatation. GALLBLADDER AND BILE DUCTS: Surgically absent. PANCREAS: Normal in size with homogeneous enhancement. No gross lesion or ductal dilatation. SPLEEN: Normal in size and appearance. ADRENALS: No discrete nodule. KIDNEYS AND URETERS: Normal in size with homogeneous enhancement. No hydronephrosis. No solid mass. VASCULATURE: No aortic aneurysm. There are no aortic atherosclerotic calcifications or mural plaque present. BOWEL: There is severe circumferential mural thickening in the pylorus the small bowel loops are normal in caliber. There is sigmoid diverticulosis. There is severe circumferential mural thickening in the sigmoid colon with significant pericolonic inflammatory changes extending to the left lateral pelvic wall. No microperforation or abscess. APPENDIX: Normal appendix. PERITONEUM: No free fluid. No free air. LYMPH NODES: No enlarged lymph nodes. BLADDER: Well distended and normal in appearance. REPRODUCTIVE: The uterus is normal in size. BONES: No acute fracture. Within normal limits for the patient's age. OTHER FINDINGS: None. IMPRESSION: Acute uncomplicated sigmoid diverticulitis. Severe circumferential mural thickening in the gastric pylorus is nonspecific and could be related to nonspecific gastritis however correlation with the EGD may be performed if clinically indicated. Mild hepatomegaly and fatty liver. A preliminary report was provided by [facility].
[2018-05-01 11:54] LABS: BASO # 0.1 K/uL (0.0-0.2); BASO % 0.6 % (0.0-2.0); HEMOGLOBIN 12.7 g/dL (11.0-16.0); LYMPH # 1.6 K/uL (1.0-4.3); LYMPH % 9.8 % (20.0-40.0); MEAN CELL VOLUME 90.5 fL (81.0-99.0); MEAN CORPUSCULAR HGB CONC 33.2 g/dL (33.0-37.0); MEAN PLATELET VOLUME 9.1 fL (7.2-11.7); MONO # 1.4 K/uL (0.0-0.8); MONO % 8.2 % (0.0-10.0); NEUT # 13.7 K/uL (1.8-7.0); NEUT % 81.4 % (50.0-75.0); PLATELET COUNT 242 K/uL (130-400); RBC 4.23 Mil/uL (3.80-5.20); RED CELL DISTRIBUTION WIDTH 13.5 % (11.5-14.5); WHITE BLOOD COUNT 16.8 K/uL (4.8-10.8)
[2018-05-01] MEDS: Sodium Chloride 0.9% 1,000 ML IV SCH ×4 (11:56→23:56)
[2018-05-01] MEDS: Piperacill/Tazo 3.375gm in Dex 3.375 GM/50 ML BAG IVPB SCH ×3 (11:57→21:43)
[2018-05-01 12:07] LABS: INR 1.4; PROTHROMBIN TIME 14.9 SECONDS (9.7-12.2)
[2018-05-01 12:09] LABS: ALB/GLOB RATIO 1.5 (1.0-2.1); ALBUMIN 4.2 g/dL (3.5-5.0); ALT/SGPT 38 U/L (9-52); AST/SGOT 28 U/L (14-36); BLOOD UREA NITROGEN 8 mg/dL (7-17); CALCIUM 8.9 mg/dl (8.6-10.4); GFR NON-AFRICAN AMERICAN > 60
--- NOTE | 2018-05-01 12:17 | RAD ---
Date of service: 05/01/2018 HISTORY: Leukocytosis COMPARISON: No prior. TECHNIQUE: Chest PA and lateral FINDINGS: LINES AND TUBES: None. LUNG AND PLEURA: The lungs are well inflated and clear. No pleural effusion or pneumothorax. HEART AND MEDIASTINUM: The heart is not enlarged. No aortic atherosclerotic calcifications present. The hilar and mediastinal contours are within normal limits. SKELETAL STRUCTURES: The bony structures are within normal limits for the patient's age. VISUALIZED UPPER ABDOMEN: Normal. OTHER FINDINGS: None. IMPRESSION: No active pulmonary disease.
--- NOTE | 2018-05-01 12:20 | CP.PCM.CON ---
<Bean Patiño - Last Filed: 05/01/18 16:32> History of Present Illness - History of Present Illness History of Present Illness: PGY6 GI Fellow Consult Note Patient is a 52yo female with PMHx significant for HTN who presented to the ED with abdominal pain. Patient states that she suddenly developed left lower abdominal cramping and pinching pain Tuesday afternoon while at work. Symptoms were not particularly severe at that time but remained persistent in to Tuesday morning. All day Tuesday she noted worsening of pain with eating and walking. On Tuesday, pain was excruciating leading her to come to the hospital. Admits that she used Cefalexin, which she had left over from a previous skin infection, for the past few days to try to treat her symptoms without significant improvement. Denies any over the counter medications, recent travel or sick contacts. No nausea, vomiting, unintentional weight loss, constipation, hematochezia, melena. Admits to one episodes of loose stool this morning. 12 system ROS performed and negative except where stated PMHx: See HPI PSHx: Cholecystectomy, appendectomy. tubal ligation FHx: Discussed with patient and she denies any significant family history Social: Denies tobacco, EtOH or illicit drug use Endo: EGD performed approximately 3 years ago and unremarkable per patient Past Patient History - Infectious Disease Hx of Infectious Diseases: None - Past Medical History & Family History Past Medical History?: Yes - Past Social History Smoking Status: Never Smoked - CARDIAC Hx Hypertension: Yes - PULMONARY Hx Respiratory Disorders: No - HEENT Hx HEENT Problems: No - RENAL Hx Chronic Kidney Disease: No - ENDOCRINE/METABOLIC Hx Endocrine Disorders: No - HEMATOLOGICAL/ONCOLOGICAL Hx Blood Disorders: No - INTEGUMENTARY Hx Dermatological Problems: No - MUSCULOSKELETAL/RHEUMATOLOGICAL Hx Musculoskeletal Disorders: No Other/Comment: sciatica - GASTROINTESTINAL Hx Gastrointestinal Disorders: No - GENITOURINARY/GYNECOLOGICAL Hx Genitourinary Disorders: No - PSYCHIATRIC Hx Depression: Yes Hx Substance Use: No - SURGICAL HISTORY Hx Appendectomy: Yes Hx Cholecystectomy: Yes - ANESTHESIA Hx Anesthesia: Yes Hx Anesthesia Reactions: No Meds Allergies/Adverse Reactions: Allergies Allergy/AdvReac Type Severity Reaction Status Date / Time No Known Allergies Allergy Verified 04/30/18 17:52 - Medications Medications: Current Medications Heparin Sodium (Porcine) (Heparin) 5,000 units SC Q8 [facility] Last Admin: 05/01/18 06:19 Dose: 5,000 units Sodium Chloride (Sodium Chloride 0.9%) 1,000 mls @ 125 mls/hr IV .Q8H [facility] Last Admin: 05/01/18 11:56 Dose: Not Given Piperacillin Sod/Tazobactam Sod (Zosyn 3.375 Gm Iv Premix) 3.375 gm in 50 mls @ 100 mls/hr IVPB Q6H [facility]; Protocol Last Admin: 05/01/18 11:57 Dose: 100 mls/hr Morphine Sulfate (Morphine) 2 mg IVP Q4 PRN PRN Reason: Pain, severe (8-10) Ondansetron HCl (Zofran Inj) 4 mg IVP Q6 PRN PRN Reason: Nausea/Vomiting Pantoprazole Sodium (Protonix Inj) 40 mg IVP Q12H [facility] Last Admin: 05/01/18 11:56 Dose: 40 mg Physical Exam - Constitutional Appears: Non-toxic, No Acute Distress, Other (obese) - Eye Exam Eye Exam: EOMI, PERRL - ENT Exam ENT Exam: Mucous Membranes Moist - Respiratory Exam Respiratory Exam: Clear to Auscultation Bilateral. absent: Rales, Rhonchi, Wheezes - Cardiovascular Exam Cardiovascular Exam: RRR, +S1, +S2 - GI/Abdominal Exam GI & Abdominal Exam: Normal Bowel Sounds, Soft, Tenderness (LLQ). absent: Distended, Firm, Guarding, Organomegaly, Rigid - Extremities Exam Extremities exam: Positive for: normal inspection. Negative for: pedal edema - Neurological Exam Neurological exam: Alert, Oriented x3 - Psychiatric Exam Psychiatric exam: Normal Affect, Normal Mood - Skin Skin Exam: Dry, Warm Results - Vital Signs Recent Vital Signs: Last Vital Signs Temp 99.2 F 05/01/18 06:57 Pulse 80 05/01/18 06:57 Resp 16 05/01/18 06:57 BP 124/81 05/01/18 06:57 Pulse Ox 99 05/01/18 06:57 - Labs Result Diagrams: 05/01/18 11:45 05/01/18 11:45 Labs: Laboratory Results - last 24 hr 04/30/18 04/30/18 04/30/18 18:14 18:32 18:32 WBC 13.6 H D RBC 4.62 Hgb 13.4 Hct 41.4 MCV 89.7 D MCH 29.0 MCHC 32.3 L RDW 13.2 Plt Count 244 MPV 9.4 Neut % (Auto) 72.3 Lymph % (Auto) 16.8 L [place] % (Auto) 9.7 Eos % (Auto) 0.5 Baso % (Auto) 0.7 Neut # (Auto) 9.8 H Lymph # (Auto) 2.3 [place] # (Auto) 1.3 H Eos # (Auto) 0.1 Baso # (Auto) 0.1 Sodium 137 Potassium 4.0 Chloride 101 Carbon Dioxide 30 Anion Gap 10 BUN 12 Creatinine 0.7 Est GFR ( Amer) > 60 Est GFR (Non-Af Amer) > 60 Random Glucose 91 Calcium 9.0 Total Bilirubin 0.5 AST 21 ALT 32 Alkaline Phosphatase 72 Total Protein 6.9 Albumin 4.2 Globulin 2.7 Albumin/Globulin Ratio 1.6 Urine Color Yellow Urine Clarity Hazy Urine pH 7.0 Ur Specific [place] 1.018 Urine Protein Negative Urine Glucose (UA) Normal Urine Ketones Negative Urine Blood Negative Urine Nitrate Negative Urine Bilirubin Negative Urine Urobilinogen Normal Ur Leukocyte Esterase Neg Urine WBC (Auto) < 1 Urine RBC (Auto) 1 Ur Squamous Epith Cells 1 Urine Bacteria Rare Urine HCG, Qual Negative Influenza Typ A,B (EIA) 04/30/18 05/01/18 19:27 11:45 WBC 16.8 H RBC 4.23 Hgb 12.7 Hct 38.3 MCV 90.5 MCH 30.0 MCHC 33.2 RDW 13.5 Plt Count 242 MPV 9.1 Neut % (Auto) 81.4 H Lymph % (Auto) 9.8 L [place] % (Auto) 8.2 Eos % (Auto) 0.0 Baso % (Auto) 0.6 Neut # (Auto) 13.7 H Lymph # (Auto) 1.6 [place] # (Auto) 1.4 H Eos # (Auto) 0.0 Baso # (Auto) 0.1 Sodium Potassium Chloride Carbon Dioxide Anion Gap BUN Creatinine Est GFR ( Amer) Est GFR (Non-Af Amer) Random Glucose Calcium Total Bilirubin AST ALT Alkaline Phosphatase Total Protein Albumin Globulin Albumin/Globulin Ratio Urine Color Urine Clarity Urine pH Ur Specific [place] Urine Protein Urine Glucose (UA) Urine Ketones Urine Blood Urine Nitrate Urine Bilirubin Urine Urobilinogen Ur Leukocyte Esterase Urine WBC (Auto) Urine RBC (Auto) Ur Squamous Epith Cells Urine Bacteria Urine HCG, Qual Influenza Typ A,B (EIA) Negative for flu a/b Assessment & Plan - Assessment and Plan (Free Text) Assessment: Patient is a 52yo female with PMHx significant for HTN who presented to the ED with abdominal pain -Acute sigmoid diverticulitis Plan: -Agree with IV antibiotic therapy - on Zosyn presently -Stool culture collected -Analgesia per primary team -Surgical evaluation appreciated -Bowel rest followed by clear liquid diet and advance as tolerated once symptoms improve -Recommend colonoscopy 6-8 weeks after resolution of symptoms - Date & Time Date: 05/01/18 Time: 10:45 <Tushar Mota - Last Filed: 05/01/18 17:04> Meds - Medications Medications: Current Medications Heparin Sodium (Porcine) (Heparin) 5,000 units SC Q8 [facility] Last Admin: 05/01/18 15:39 Dose: Not Given Sodium Chloride (Sodium Chloride 0.9%) 1,000 mls @ 125 mls/hr IV .Q8H [facility] Last Admin: 05/01/18 11:56 Dose: Not Given Piperacillin Sod/Tazobactam Sod (Zosyn 3.375 Gm Iv Premix) 3.375 gm in 50 mls @ 100 mls/hr IVPB Q6H [facility]; Protocol Last Admin: 05/01/18 11:57 Dose: 100 mls/hr Morphine Sulfate (Morphine) 2 mg IVP Q4 PRN PRN Reason: Pain, severe (8-10) Ondansetron HCl (Zofran Inj) 4 mg IVP Q6 PRN PRN Reason: Nausea/Vomiting Pantoprazole Sodium (Protonix Inj) 40 mg IVP Q12H [facility] Last Admin: 05/01/18 11:56 Dose: 40 mg Results - Vital Signs Recent Vital Signs: Last Vital Signs Temp 98 F 05/01/18 15:53 Pulse 77 05/01/18 15:53 Resp 20 05/01/18 15:53 BP 126/80 05/01/18 15:53 Pulse Ox 97 05/01/18 15:53 - Labs Result Diagrams: 05/01/18 11:45 05/01/18 11:45 Labs: Laboratory Results - last 24 hr 04/30/18 04/30/18 04/30/18 18:14 18:32 18:32 WBC 13.6 H D RBC 4.62 Hgb 13.4 Hct 41.4 MCV 89.7 D MCH 29.0 MCHC 32.3 L RDW 13.2 Plt Count 244 MPV 9.4 Neut % (Auto) 72.3 Lymph % (Auto) 16.8 L [place] % (Auto) 9.7 Eos % (Auto) 0.5 Baso % (Auto) 0.7 Neut # (Auto) 9.8 H Lymph # (Auto) 2.3 [place] # (Auto) 1.3 H Eos # (Auto) 0.1 Baso # (Auto) 0.1 Neutrophils % (Manual) Band Neutrophils % Lymphocytes % (Manual) Monocytes % (Manual) Platelet Estimate PT INR APTT Sodium 137 Potassium 4.0 Chloride 101 Carbon Dioxide 30 Anion Gap 10 BUN 12 Creatinine 0.7 Est GFR ( Amer) > 60 Est GFR (Non-Af Amer) > 60 Random Glucose 91 Lactic Acid Calcium 9.0 Total Bilirubin 0.5 AST 21 ALT 32 Alkaline Phosphatase 72 Total Protein 6.9 Albumin 4.2 Globulin 2.7 Albumin/Globulin Ratio 1.6 Lipase Urine Color Yellow Urine Clarity Hazy Urine pH 7.0 Ur Specific [place] 1.018 Urine Protein Negative Urine Glucose (UA) Normal Urine Ketones Negative Urine Blood Negative Urine Nitrate Negative Urine Bilirubin Negative Urine Urobilinogen Normal Ur Leukocyte Esterase Neg Urine WBC (Auto) < 1 Urine RBC (Auto) 1 Ur Squamous Epith Cells 1 Urine Bacteria Rare Urine HCG, Qual Negative Influenza Typ A,B (EIA) 04/30/18 05/01/18 05/01/18 19:27 11:45 11:45 WBC 16.8 H RBC 4.23 Hgb 12.7 Hct 38.3 MCV 90.5 MCH 30.0 MCHC 33.2 RDW 13.5 Plt Count 242 MPV 9.1 Neut % (Auto) 81.4 H Lymph % (Auto) 9.8 L [place] % (Auto) 8.2 Eos % (Auto) 0.0 Baso % (Auto) 0.6 Neut # (Auto) 13.7 H Lymph # (Auto) 1.6 [place] # (Auto) 1.4 H Eos # (Auto) 0.0 Baso # (Auto) 0.1 Neutrophils % (Manual) 80 H Band Neutrophils % 2 Lymphocytes % (Manual) 10 L Monocytes % (Manual) 8 Platelet Estimate Normal PT INR APTT Sodium 138 Potassium 3.8 Chloride 104 Carbon Dioxide 26 Anion Gap 12 BUN 8 Creatinine 0.6 L Est GFR ( Amer) > 60 Est GFR (Non-Af Amer) > 60 Random Glucose 95 Lactic Acid Calcium 8.9 Total Bilirubin 1.3 AST 28 ALT 38 Alkaline Phosphatase 78 Total Protein 7.1 Albumin 4.2 Globulin 2.8 Albumin/Globulin Ratio 1.5 Lipase Urine Color Urine Clarity Urine pH Ur Specific [place] Urine Protein Urine Glucose (UA) Urine Ketones Urine Blood Urine Nitrate Urine Bilirubin Urine Urobilinogen Ur Leukocyte Esterase Urine WBC (Auto) Urine RBC (Auto) Ur Squamous Epith Cells Urine Bacteria Urine HCG, Qual Influenza Typ A,B (EIA) Negative for flu a/b 05/01/18 05/01/18 05/01/18 11:45 11:45 14:19 WBC RBC Hgb Hct MCV MCH MCHC RDW Plt Count MPV Neut % (Auto) Lymph % (Auto) [place] % (Auto) Eos % (Auto) Baso % (Auto) Neut # (Auto) Lymph # (Auto) [place] # (Auto) Eos # (Auto) Baso # (Auto) Neutrophils % (Manual) Band Neutrophils % Lymphocytes % (Manual) Monocytes % (Manual) Platelet Estimate PT 14.9 H INR 1.4 APTT 35 H Sodium Potassium Chloride Carbon Dioxide Anion Gap BUN Creatinine Est GFR ( Amer) Est GFR (Non-Af Amer) Random Glucose Lactic Acid 0.9 Calcium Total Bilirubin AST ALT Alkaline Phosphatase Total Protein Albumin Globulin Albumin/Globulin Ratio Lipase 28 Urine Color Urine Clarity Urine pH Ur Specific [place] Urine Protein Urine Glucose (UA) Urine Ketones Urine Blood Urine Nitrate Urine Bilirubin Urine Urobilinogen Ur Leukocyte Esterase Urine WBC (Auto) Urine RBC (Auto) Ur Squamous Epith Cells Urine Bacteria Urine HCG, Qual Influenza Typ A,B (EIA) Attending/Attestation - Attestation I have personally seen and examined this patient.: Yes I have fully participated in the care of the patient.: Yes I have reviewed all pertinent clinical information: Yes Notes (Text): 05/01/18 17:02 Patient seen and examined and CT scan reviewed. Findings consistent with severe sigmoid diverticulitits. Rising WBC count a bit concerning in spite of abx. consider addition of Flagyl to current coverage. Surgical consult requested. If clinical improvement noted advise 14 days of treatment and colonoscopy via clinic referral in 8-12 weeks.
[2018-05-01 12:52] LABS: BANDS 2 % (0-2); LYMPHOCYTE 10 % (20-40); MONOCYTE 8 % (0-10); NEUTROPHIL 80 % (50-75); PLATELET ESTIMATE NORMAL (NORMAL); TOTAL CELLS COUNTED 100
[2018-05-01] MEDS ORDERED: Acetaminophen 650mg/20.3ml solution UD PO STA (18:14)
[2018-05-01] MEDS: metroNIDAZOLE IV 500 mg/100 ml 500 MG/100 ML BAG IVPB SCH (19:32)
[2018-05-02] MEDS: Sodium Chloride 0.9% 1,000 ML IV SCH ×3 (01:22→22:02)
[2018-05-02] MEDS: metroNIDAZOLE IV 500 mg/100 ml 500 MG/100 ML BAG IVPB SCH ×3 (02:22→19:44)
[2018-05-02] MEDS: Piperacill/Tazo 3.375gm in Dex 3.375 GM/50 ML BAG IVPB SCH ×4 (06:20→21:51)
[2018-05-02 08:02] LABS: BASO % 0.3 % (0.0-2.0); EOS % 0.4 % (0.0-4.0); HEMOGLOBIN 12.4 g/dL (11.0-16.0); LYMPH # 1.4 K/uL (1.0-4.3); LYMPH % 13.5 % (20.0-40.0); MEAN CELL VOLUME 90.7 fL (81.0-99.0); MEAN CORPUSCULAR HEMOGLOBIN 29.5 pg (27.0-31.0); MEAN CORPUSCULAR HGB CONC 32.5 g/dL (33.0-37.0); MEAN PLATELET VOLUME 9.6 fL (7.2-11.7); MONO # 0.8 K/uL (0.0-0.8); MONO % 8.1 % (0.0-10.0); NEUT # 8.1 K/uL (1.8-7.0); NEUT % 77.7 % (50.0-75.0); RBC 4.19 Mil/uL (3.80-5.20); RED CELL DISTRIBUTION WIDTH 13.4 % (11.5-14.5); WHITE BLOOD COUNT 10.5 K/uL (4.8-10.8)
--- NOTE | 2018-05-02 08:16 | CP.PCM.PN ---
<Nicole Decker P - Last Filed: 05/02/18 16:50> Subjective - Date & Time of Evaluation Date of Evaluation: 05/02/18 Time of Evaluation: 06:00 - Subjective Subjective: Progress note for Dr. Ames. Patient seen and examined at bedside. Reports that she awoke with severe pain at 3am and that pain has moved from the lower abdomen to the pina-umbilical area. Complains of nausea and an episode of diarrhea last night. Denies fever, chills, vomiting, blood in stool. Objective - Vital Signs/Intake and Output Vital Signs (last 24 hours): Temp Pulse Resp BP Pulse Ox 98.1 F 67 20 128/83 97 05/02/18 08:10 05/02/18 08:10 05/02/18 08:10 05/02/18 08:10 05/02/18 08:10 Intake and Output: 05/02/18 05/02/18 06:59 18:59 Intake Total 1000 Balance 1000 - Medications Medications: Current Medications Heparin Sodium (Porcine) (Heparin) 5,000 units SC Q8 [facility] Last Admin: 05/02/18 06:21 Dose: 5,000 units Sodium Chloride (Sodium Chloride 0.9%) 1,000 mls @ 125 mls/hr IV .Q8H [facility] Last Admin: 05/02/18 01:22 Dose: Not Given Piperacillin Sod/Tazobactam Sod (Zosyn 3.375 Gm Iv Premix) 3.375 gm in 50 mls @ 100 mls/hr IVPB Q6H [facility]; Protocol Last Admin: 05/02/18 06:20 Dose: 100 mls/hr Metronidazole (Flagyl) 500 mg in 100 mls @ 100 mls/hr IVPB Q8H [facility]; Protocol Last Admin: 05/02/18 02:22 Dose: 100 mls/hr Morphine Sulfate (Morphine) 2 mg IVP Q4 PRN PRN Reason: Pain, severe (8-10) Last Admin: 05/02/18 06:28 Dose: 2 mg Ondansetron HCl (Zofran Inj) 4 mg IVP Q6 PRN PRN Reason: Nausea/Vomiting Pantoprazole Sodium (Protonix Inj) 40 mg IVP Q12H [facility] Last Admin: 05/01/18 21:43 Dose: 40 mg - Labs Labs: 05/02/18 07:46 05/01/18 11:45 PT 14.9 SECONDS (9.7-12.2) H 05/01/18 11:45 INR 1.4 05/01/18 11:45 APTT 35 SECONDS (21-34) H 05/01/18 11:45 - Constitutional Appears: Non-toxic, No Acute Distress - Head Exam Head Exam: ATRAUMATIC, NORMOCEPHALIC - Eye Exam Eye Exam: Normal appearance - Neck Exam Neck Exam: Normal Inspection - Respiratory Exam Respiratory Exam: NORMAL BREATHING PATTERN - GI/Abdominal Exam GI & Abdominal Exam: Soft, Normal Bowel Sounds. absent: Distended, Guarding, Tenderness, Rebound - Extremities Exam Extremities Exam: Full ROM, Normal Inspection - Neurological Exam Neurological Exam: Alert, Awake, Oriented x3 - Psychiatric Exam Psychiatric exam: Normal Affect, Normal Mood - Skin Skin Exam: Dry, Intact, Normal Color, Warm Assessment and Plan - Assessment and Plan (Free Text) Assessment: 52 year old F with diverticulitis of sigmoid colon with adjacent phlegmon Plan: -WBC improved to 10.5 -Continue IV abx -Advance to [facility] Further recs as per Dr. Ames. Nicole Decker, PGY1 <Dank Ames - Last Filed: 05/05/18 18:05> Objective - Vital Signs/Intake and Output Vital Signs (last 24 hours): Temp Pulse Resp BP Pulse Ox 99.1 F 104 H 20 136/84 94 L 05/05/18 15:00 05/05/18 15:00 05/05/18 15:00 05/05/18 15:00 05/05/18 15:00 Intake and Output: 05/05/18 05/05/18 06:59 18:59 Intake Total 1275 Output Total 1055 1115 Balance 220 -1115 - Medications Medications: Current Medications Acetaminophen (Tylenol 325mg Tab) 650 mg PO Q4 PRN PRN Reason: Pain, Mild (1-3) Amlodipine Besylate (Norvasc) 5 mg PO DAILY [facility] Last Admin: 05/05/18 10:20 Dose: 5 mg Heparin Sodium (Porcine) (Heparin) 5,000 units SC Q8 [facility] Last Admin: 05/05/18 14:27 Dose: 5,000 units Hydromorphone HCl (Dilaudid) 0.5 mg IVP Q4H PRN PRN Reason: Pain, severe (8-10) Last Admin: 05/05/18 14:46 Dose: 0.5 mg Piperacillin Sod/Tazobactam Sod (Zosyn 3.375 Gm Iv Premix) 3.375 gm in 50 mls @ 100 mls/hr IVPB Q6H [facility]; Protocol Last Admin: 05/05/18 16:39 Dose: 100 mls/hr Metronidazole (Flagyl) 500 mg in 100 mls @ 100 mls/hr IVPB Q8H [facility]; Protocol Last Admin: 05/05/18 11:45 Dose: 100 mls/hr Potassium Chloride/Dextrose/Sod Cl (Potassium Chl 20 Meq In D5-1/2ns) 1,000 mls @ 125 mls/hr IV .Q8H [facility] Last Admin: 05/05/18 10:20 Dose: Not Given BUPIVACAINE 0.125%/0.9% NACL (Bupivacaine-Ns 0.125% On-Q [employer] Auditor) 600 mls @ 7 mls/hr IJ ONCE ONE Stop: 05/09/18 00:42 Pantoprazole Sodium (Protonix Inj) 40 mg IVP Q12H [facility] Last Admin: 05/05/18 10:20 Dose: 40 mg Tramadol HCl (Ultram) 50 mg PO TID PRN PRN Reason: Pain, moderate (4-7) - Labs Labs: 05/05/18 07:51 05/05/18 07:51 PT 15.5 SECONDS (9.7-12.2) H 05/04/18 07:04 INR 1.4 05/04/18 07:04 APTT 35 SECONDS (21-34) H 05/01/18 11:45 Attending/Attestation - Attestation I have personally seen and examined this patient.: Yes I have fully participated in the care of the patient.: Yes I have reviewed all pertinent clinical information, including history, physical exam and plan: Yes Notes (Text): Pt was seen and examined at bedside Agree with above note and assessment Pt is stable clinically Pain is improved c.w IV antibiotics start clears today Plan d.w pt in detail
[2018-05-02 09:07] LABS: ALB/GLOB RATIO 1.4 (1.0-2.1); ALBUMIN 3.8 g/dL (3.5-5.0); ALT/SGPT 34 U/L (9-52); AST/SGOT 27 U/L (14-36); BLOOD UREA NITROGEN 12 mg/dL (7-17); CALCIUM 8.8 mg/dl (8.6-10.4); GFR NON-AFRICAN AMERICAN > 60; HDL CHOLESTEROL 41 mg/dL (30-70)
[2018-05-02 09:15] LABS: LDL CHOLESTEROL 91 mg/dL (0-129)
--- NOTE | 2018-05-02 09:22 | CP.PCM.PN ---
<Bean Patiño - Last Filed: 05/02/18 09:38> Subjective - Date & Time of Evaluation Date of Evaluation: 05/02/18 Time of Evaluation: 07:30 - Subjective Subjective: PGY6 GI Fellow Progress Note Patient seen and examined bedside this morning. Continues to have LLQ and now epigastric abdominal pain. No nausea, vomiting. Passing loose, watery stool overnight. Some pain with defecation and passing flatus. 12 system ROS performed and negative except where stated Objective - Vital Signs/Intake and Output Vital Signs (last 24 hours): Temp Pulse Resp BP Pulse Ox 98.1 F 67 20 128/83 97 05/02/18 08:10 05/02/18 08:10 05/02/18 08:10 05/02/18 08:10 05/02/18 08:10 Intake and Output: 05/02/18 05/02/18 06:59 18:59 Intake Total 1000 Balance 1000 - Medications Medications: Current Medications Heparin Sodium (Porcine) (Heparin) 5,000 units SC Q8 [facility] Last Admin: 05/02/18 06:21 Dose: 5,000 units Sodium Chloride (Sodium Chloride 0.9%) 1,000 mls @ 125 mls/hr IV .Q8H [facility] Last Admin: 05/02/18 01:22 Dose: Not Given Piperacillin Sod/Tazobactam Sod (Zosyn 3.375 Gm Iv Premix) 3.375 gm in 50 mls @ 100 mls/hr IVPB Q6H [facility]; Protocol Last Admin: 05/02/18 06:20 Dose: 100 mls/hr Metronidazole (Flagyl) 500 mg in 100 mls @ 100 mls/hr IVPB Q8H [facility]; Protocol Last Admin: 05/02/18 02:22 Dose: 100 mls/hr Morphine Sulfate (Morphine) 2 mg IVP Q4 PRN PRN Reason: Pain, severe (8-10) Last Admin: 05/02/18 06:28 Dose: 2 mg Ondansetron HCl (Zofran Inj) 4 mg IVP Q6 PRN PRN Reason: Nausea/Vomiting Pantoprazole Sodium (Protonix Inj) 40 mg IVP Q12H [facility] Last Admin: 05/01/18 21:43 Dose: 40 mg - Labs Labs: 05/02/18 07:46 05/02/18 07:46 PT 14.9 SECONDS (9.7-12.2) H 05/01/18 11:45 INR 1.4 05/01/18 11:45 APTT 35 SECONDS (21-34) H 05/01/18 11:45 - Constitutional Appears: Non-toxic, No Acute Distress, Other (obese) - Eye Exam Eye Exam: EOMI, PERRL - ENT Exam ENT Exam: Mucous Membranes Moist - Respiratory Exam Respiratory Exam: Clear to Ausculation Bilateral. absent: Rales, Rhonchi, Wheezes - Cardiovascular Exam Cardiovascular Exam: RRR, +S1, +S2 - GI/Abdominal Exam GI & Abdominal Exam: Soft, Tenderness (LLQ, RLQ, periumbilical), Normal Bowel Sounds. absent: Distended, Firm, Guarding, Rigid, Organomegaly - Extremities Exam Extremities Exam: Normal Inspection. absent: Pedal Edema - Neurological Exam Neurological Exam: Alert, Awake, Oriented x3 - Psychiatric Exam Psychiatric exam: Normal Affect, Normal Mood - Skin Skin Exam: Dry, Warm Assessment and Plan - Assessment and Plan (Free Text) Assessment: Patient is a 52yo female with PMHx significant for HTN who presented to the ED with abdominal pain -Acute sigmoid diverticulitis Plan: -Pain relatively unchanged from prior, maintain conservative approach for now -WBC downtrending, monitor CBC -Metronidazole added to Zosyn regimen yesterday -Stool culture ordered -Influenza screening negative, FOBT negative -Analgesia per primary team -Surgical team on board - no intent for surgery at present time -Recommend bowel rest - liquid diet started by surgery team -Colonoscopy in 8-12 weeks after resolution of symptoms <Tushar Mota - Last Filed: 05/02/18 09:41> Objective - Vital Signs/Intake and Output Vital Signs (last 24 hours): Temp Pulse Resp BP Pulse Ox 98.1 F 67 20 128/83 97 05/02/18 08:10 05/02/18 08:10 05/02/18 08:10 05/02/18 08:10 05/02/18 08:10 Intake and Output: 05/02/18 05/02/18 06:59 18:59 Intake Total 1000 Balance 1000 - Medications Medications: Current Medications Heparin Sodium (Porcine) (Heparin) 5,000 units SC Q8 [facility] Last Admin: 05/02/18 06:21 Dose: 5,000 units Piperacillin Sod/Tazobactam Sod (Zosyn 3.375 Gm Iv Premix) 3.375 gm in 50 mls @ 100 mls/hr IVPB Q6H [facility]; Protocol Last Admin: 05/02/18 06:20 Dose: 100 mls/hr Metronidazole (Flagyl) 500 mg in 100 mls @ 100 mls/hr IVPB Q8H [facility]; Protocol Last Admin: 05/02/18 02:22 Dose: 100 mls/hr Sodium Chloride (Sodium Chloride 0.9%) 1,000 mls @ 100 mls/hr IV .Q10H [facility] Morphine Sulfate (Morphine) 2 mg IVP Q4 PRN PRN Reason: Pain, severe (8-10) Last Admin: 05/02/18 06:28 Dose: 2 mg Ondansetron HCl (Zofran Inj) 4 mg IVP Q6 PRN PRN Reason: Nausea/Vomiting Pantoprazole Sodium (Protonix Inj) 40 mg IVP Q12H [facility] Last Admin: 05/01/18 21:43 Dose: 40 mg - Labs Labs: 05/02/18 07:46 05/02/18 07:46 PT 14.9 SECONDS (9.7-12.2) H 05/01/18 11:45 INR 1.4 05/01/18 11:45 APTT 35 SECONDS (21-34) H 05/01/18 11:45 Attending/Attestation - Attestation I have personally seen and examined this patient.: Yes I have fully participated in the care of the patient.: Yes I have reviewed all pertinent clinical information, including history, physical exam and plan: Yes Notes (Text): 05/02/18 09:39 Patient seen and examined with GI Fellow. Pain has migrated more to epigastric area. Abdominal tenderness appears improved but she is on pain meds. White Count improved and now on Flagyl and Zosyn. Surgical follow up appreciated. They have advanced her diet. Continue IV antibiotics until pain free and improved tenderness.
--- NOTE | 2018-05-02 14:56 | CP.PCM.PN ---
<Keya Lees V - Last Filed: 05/02/18 15:32> Objective - Vital Signs/Intake and Output Vital Signs (last 24 hours): Temp Pulse Resp BP Pulse Ox 98.1 F 67 20 128/83 97 05/02/18 08:10 05/02/18 08:10 05/02/18 08:10 05/02/18 08:10 05/02/18 08:10 Intake and Output: 05/02/18 05/02/18 06:59 18:59 Intake Total 1000 Balance 1000 - Medications Medications: Current Medications Heparin Sodium (Porcine) (Heparin) 5,000 units SC Q8 [facility] Last Admin: 05/02/18 14:25 Dose: 5,000 units Piperacillin Sod/Tazobactam Sod (Zosyn 3.375 Gm Iv Premix) 3.375 gm in 50 mls @ 100 mls/hr IVPB Q6H [facility]; Protocol Last Admin: 05/02/18 10:06 Dose: 100 mls/hr Metronidazole (Flagyl) 500 mg in 100 mls @ 100 mls/hr IVPB Q8H [facility]; Protocol Last Admin: 05/02/18 11:26 Dose: 100 mls/hr Sodium Chloride (Sodium Chloride 0.9%) 1,000 mls @ 100 mls/hr IV .Q10H [facility] Last Admin: 05/02/18 10:06 Dose: 100 mls/hr Morphine Sulfate (Morphine) 2 mg IVP Q4 PRN PRN Reason: Pain, severe (8-10) Last Admin: 05/02/18 11:47 Dose: 2 mg Ondansetron HCl (Zofran Inj) 4 mg IVP Q6 PRN PRN Reason: Nausea/Vomiting Last Admin: 05/02/18 12:49 Dose: 4 mg Pantoprazole Sodium (Protonix Inj) 40 mg IVP Q12H [facility] Last Admin: 05/02/18 10:06 Dose: 40 mg - Labs Labs: 05/02/18 07:46 05/02/18 07:46 PT 14.9 SECONDS (9.7-12.2) H 05/01/18 11:45 INR 1.4 05/01/18 11:45 APTT 35 SECONDS (21-34) H 05/01/18 11:45 - Constitutional Appears: Non-toxic, No Acute Distress - Head Exam Head Exam: NORMAL INSPECTION - Eye Exam Eye Exam: EOMI - ENT Exam ENT Exam: Mucous Membranes Moist - Respiratory Exam Respiratory Exam: Clear to Ausculation Bilateral, NORMAL BREATHING PATTERN. absent: Rales, Rhonchi, Wheezes - Cardiovascular Exam Cardiovascular Exam: REGULAR RHYTHM, +S1, +S2 - GI/Abdominal Exam GI & Abdominal Exam: Distended (obese habitus), Guarding (llq), Soft, Tenderness (epigastric), Normal Bowel Sounds. absent: Firm, Rigid, Rebound - Extremities Exam Extremities Exam: absent: Pedal Edema, Tenderness - Neurological Exam Neurological Exam: Alert, Awake, Oriented x3 - Psychiatric Exam Psychiatric exam: Normal Affect, Normal Mood - Skin Skin Exam: Dry, Intact, Normal Color, Warm Attending/Attestation - Attestation I have personally seen and examined this patient.: Yes I have fully participated in the care of the patient.: Yes I have reviewed all pertinent clinical information, including history, physical exam and plan: Yes Notes (Text): 52 year old female with history of hypertension and history of multiple abdominal surgeries including laparoscopic appendectomy, cholecystectomy, tubal ligation and foot surgery who presents for left lower quadrant pain for the past 3 days. This morning patient was seen by both GI and general surgery. General surgery had advance her diet to liquid patient did try both apple juice and orange juice however she reports she felt awful in the belly and threw up surge ry has changed her back to n.p.o. I did indicate to her in light of her gastritis things like juice or things with acid or coffee or tea would be very irritated to her bowel and just think try things like water or Gatorade when she is more appropriate to go back to liquid diet.. Patient reports today pain scale is a 6 out of 10 less guarding and tenderness over the left lower quadrant compared to yesterday. Patient noted to have a T-max of 100.7 Fahrenheit from yesterday afternoon prior to starting Flagyl she has remained afebrile since the addition of Flagyl and white count has normalized with IV antibiotics. Patient is pending for stool samples to be collected. Patient has required morphine both that around 6:00 and as well 1130 today. We will continue to follow in terms of patient's resolution of pain and hopefully tolerating advance diet given that she does have a severe form of diverticulitis. 1. Acute diverticulitis of sigmoid colon Phlegmon of adjacent left adnexal region Gastritis Assessment/plan * GI on board help appreciated * General surgery on board help appreciated * Noted at the time of my round prelim report of CAT scan was available noted for acute diverticulitis of sigmoid colon with adjacent mesenteritis/phlegmon of left adnexal region and portion of inferior left pelvis. Gastritis. Hepatomegaly with hepatic steatosis. * Official CAT scan report from May 01, 2018: Acute uncomplicated sigmoid diverticulitis. Severe circumferential mural thickening in the gastric pylorus is nonspecific could be correlated to nonspecific gastritis. Mild hepatomegaly and fatty liver. * We switched her antibiotics from Cipro and Flagyl to Zosyn for increased coverage * Note no NSAIDs * We did add his pain as needed morphine 2 mg IV every 4 for severe pain * Continue with Protonix 40 mg IV every 12 hours GI prophylaxis in light of her gastritis * Continue with Zofran 4 mg IV every 6 as needed for her nausea * Continue her IV fluids * In addition to her is Zosyn 3.375 IV every 6 started on May 01, 2018 I have added back to Flagyl 500 mg IV q. 8 per recommendation by GI since of May 01, 2018 * White count has normalized however patient clinically is not improved. * Note patient denies any prior history of any diverticulitis. She is a obese lady. And she is not had her colon cancer screening thus far * T-max 100.7 05/01/18 2. History of hypertension Assessment/plan * Patient is currently normotensive. And is currently on IV fluids. We will continue to monitor. * Continue to monitor 3. Obesity Assessment/plan * Lipid panel within normal * A1c 6.2 * TSH within normal 4. Impaired glucose tolerance Assessment/plan * Hemoglobin A1c 6.2 * Patient will need diet and exercise modification counseling to prevent over diabetes given obese habitus 5. Prophylaxis: * Heparin 5000 unit SC Q8 * Protonix 40mg IV BID * NPO diet * NS 125cc/hr Disposition: patient remains n.p.o. until she is clinically improved to tolerate liquid diet. We will continue IV antibiotics to treat for diverticulitis in the meantime. GI and general surgery on board. <Sylvester Mann - Last Filed: 05/02/18 22:21> Subjective - Date & Time of Evaluation Date of Evaluation: 05/02/18 Time of Evaluation: 08:00 - Subjective Subjective: PGY-[address] Lees service Patient is seen and examined at bedside. Patient continues to experience pain on left lower side of abdomen and in the umbilical area. states pain is slightly better compared to time of admission, but continues to persist. Patient had two episodes of watery diarrhea this morning. Patient was advanced diet from NPO to clear liquid diet, as per nurse patient developed intense abdominal pain with one episode of vomiting after having apple juice and Jello, patient received zofran and morphine. Denied fever, chills, chest pain, shortness of breath, or urinary symptoms. Objective - Vital Signs/Intake and Output Vital Signs (last 24 hours): Temp Pulse Resp BP Pulse Ox 98.1 F 67 20 128/83 97 05/02/18 08:10 05/02/18 08:10 05/02/18 08:10 05/02/18 08:10 05/02/18 08:10 Intake and Output: 05/02/18 05/02/18 06:59 18:59 Intake Total 1000 Balance 1000 - Medications Medications: Current Medications Heparin Sodium (Porcine) (Heparin) 5,000 units SC Q8 [facility] Last Admin: 05/02/18 06:21 Dose: 5,000 units Piperacillin Sod/Tazobactam Sod (Zosyn 3.375 Gm Iv Premix) 3.375 gm in 50 mls @ 100 mls/hr IVPB Q6H [facility]; Protocol Last Admin: 05/02/18 10:06 Dose: 100 mls/hr Metronidazole (Flagyl) 500 mg in 100 mls @ 100 mls/hr IVPB Q8H [facility]; Protocol Last Admin: 05/02/18 11:26 Dose: 100 mls/hr Sodium Chloride (Sodium Chloride 0.9%) 1,000 mls @ 100 mls/hr IV .Q10H [facility] Last Admin: 05/02/18 10:06 Dose: 100 mls/hr Morphine Sulfate (Morphine) 2 mg IVP Q4 PRN PRN Reason: Pain, severe (8-10) Last Admin: 05/02/18 11:47 Dose: 2 mg Ondansetron HCl (Zofran Inj) 4 mg IVP Q6 PRN PRN Reason: Nausea/Vomiting Last Admin: 05/02/18 12:49 Dose: 4 mg Pantoprazole Sodium (Protonix Inj) 40 mg IVP Q12H [facility] Last Admin: 05/02/18 10:06 Dose: 40 mg - Labs Labs: 05/02/18 07:46 05/02/18 07:46 PT 14.9 SECONDS (9.7-12.2) H 05/01/18 11:45 INR 1.4 05/01/18 11:45 APTT 35 SECONDS (21-34) H 05/01/18 11:45 - Constitutional Appears: Non-toxic, No Acute Distress - Head Exam Head Exam: NORMAL INSPECTION - Eye Exam Eye Exam: EOMI - ENT Exam ENT Exam: Mucous Membranes Moist - Neck Exam Neck Exam: Full ROM, Normal Inspection - Respiratory Exam Respiratory Exam: Clear to Ausculation Bilateral, NORMAL BREATHING PATTERN. absent: Rales, Rhonchi, Wheezes - Cardiovascular Exam Cardiovascular Exam: REGULAR RHYTHM, +S1, +S2 - GI/Abdominal Exam GI & Abdominal Exam: Guarding, Soft, Tenderness (Left and right lower quadrant and umbilical area), Normal Bowel Sounds - Extremities Exam Extremities Exam: Full ROM. absent: Pedal Edema, Tenderness - Neurological Exam Neurological Exam: Alert, Awake, Oriented x3 - Psychiatric Exam Psychiatric exam: Normal Affect, Normal Mood - Skin Skin Exam: Dry, Intact, Normal Color, Warm Assessment and Plan - Assessment and Plan (Free Text) Assessment: 52 year old female with history of hypertension, laparoscopic appendectomy, cholecystectomy, tubal ligation and foot surgery who presents for left lower quadrant pain, found to have acute diverticulitis with phlegmon of left adnexal region on imaging. Plan: Acute diverticulitis of sigmoid colon Phlegmon of adjacent left adnexal region CT abdomen/pelvis Acute uncomplicated sigmoid diverticulitis.Severe circumferent ial mural thickening in the gastric pylorus is nonspecific and could be related to nonspecific gastritis however correlation with the EGD may be performed if clinically indicated. Mild hepatomegaly and fatty liver. CXR: no acute disease WBC improved this morning from 16.8 to 10.5, no bands observed this am patient is afebrile at this time, Tmax for past 24 hours 100.7F Bcx negative for 24 hours Ucx negative Surgery consult - advanced diet in the am to CLD, patient did not tolerated diet, mostly drinking apple juice and Jello. Patient placed back on NPO diet Morphine 2mg IV Q4 PRN NS IV fluids @ 100cc/hr continue Zosyn 3.375g IV Q6 continue Flagyl 500mg Q8 continue Protonix 40mg IV q12 No NSAIDS f/u GI consult History of hypertension Continue to monitor Not on medications here - normotensive Obesity f/u HbA1C, lipid panel, TSH Prophylaxis: Heparin 5000 unit SC Q8 Protonix 40mg IV BID continue NPO diet plan discussed with Dr Yoana Mann, PGY-1
[2018-05-02] MEDS ORDERED: Iohexol 240 (50 ml) PO ONE (17:00)
[2018-05-02] MEDS ORDERED: Iohexol 300 100 ML IJ ONE (17:26)
[2018-05-02] MEDS ORDERED: Aluminum Hydroxide/Magnesium Hydroxide Susp (30 mL) PO PRN (22:12)
[2018-05-02 23:11] LABS: BASO # 0.1 K/uL (0.0-0.2); BASO % 0.6 % (0.0-2.0); EOS % 0.1 % (0.0-4.0); LYMPH # 1.8 K/uL (1.0-4.3); LYMPH % 12.7 % (20.0-40.0); MEAN CELL VOLUME 89.6 fL (81.0-99.0); MEAN CORPUSCULAR HGB CONC 32.4 g/dL (33.0-37.0); MEAN PLATELET VOLUME 9.3 fL (7.2-11.7); NEUT # 11.4 K/uL (1.8-7.0); NEUT % 79.6 % (50.0-75.0); RBC 4.13 Mil/uL (3.80-5.20); RED CELL DISTRIBUTION WIDTH 13.2 % (11.5-14.5); WHITE BLOOD COUNT 14.3 K/uL (4.8-10.8)
--- NOTE | 2018-05-02 23:16 | CP.PCM.PN ---
<August Woodson - Last Filed: 05/04/18 09:00> Subjective - Date & Time of Evaluation Date of Evaluation: 05/02/18 Time of Evaluation: 23:13 - Subjective Subjective: SURGERY NOTE FOR DR. AMES 52F seen and examined at bedside. Resting comfortably. States pain is improved since morning. Pain is located in the abdomen diffusely. Denies any nausea of vomiting, admits to cyclical subjective fevers. Objective - Vital Signs/Intake and Output Vital Signs (last 24 hours): Temp Pulse Resp BP Pulse Ox 99.3 F 79 20 128/81 100 05/02/18 21:10 05/02/18 21:10 05/02/18 21:10 05/02/18 21:10 05/02/18 21:10 Intake and Output: 05/02/18 05/03/18 18:59 06:59 Intake Total 800 Balance 800 - Medications Medications: Current Medications Al Hydrox/Mg Hydrox/Simethicone (Maalox 30 Ml) 30 ml PO Q6 PRN PRN Reason: Indigestion / Heartburn Heparin Sodium (Porcine) (Heparin) 5,000 units SC Q8 [facility] Last Admin: 05/02/18 21:49 Dose: 5,000 units Piperacillin Sod/Tazobactam Sod (Zosyn 3.375 Gm Iv Premix) 3.375 gm in 50 mls @ 100 mls/hr IVPB Q6H [facility]; Protocol Last Admin: 05/02/18 21:51 Dose: 100 mls/hr Metronidazole (Flagyl) 500 mg in 100 mls @ 100 mls/hr IVPB Q8H [facility]; Protocol Last Admin: 05/02/18 19:44 Dose: 100 mls/hr Sodium Chloride (Sodium Chloride 0.9%) 1,000 mls @ 150 mls/hr IV .Q6H40M [facility] Morphine Sulfate (Morphine) 2 mg IVP Q4 PRN PRN Reason: Pain, severe (8-10) Last Admin: 05/02/18 21:53 Dose: 2 mg Ondansetron HCl (Zofran Inj) 4 mg IVP Q6 PRN PRN Reason: Nausea/Vomiting Last Admin: 05/02/18 12:49 Dose: 4 mg Pantoprazole Sodium (Protonix Inj) 40 mg IVP Q12H [facility] Last Admin: 05/02/18 21:49 Dose: 40 mg - Labs Labs: 05/02/18 23:07 05/02/18 07:46 PT 14.9 SECONDS (9.7-12.2) H 05/01/18 11:45 INR 1.4 05/01/18 11:45 APTT 35 SECONDS (21-34) H 05/01/18 11:45 - Constitutional Appears: Non-toxic, No Acute Distress - Respiratory Exam Respiratory Exam: Clear to Ausculation Bilateral, NORMAL BREATHING PATTERN - Cardiovascular Exam Cardiovascular Exam: REGULAR RHYTHM, +S1, +S2 - GI/Abdominal Exam GI & Abdominal Exam: Soft, Tenderness (diffusely, moderately). absent: Distended, Firm, Guarding, Rigid, Rebound - Neurological Exam Neurological Exam: Alert, Awake - Skin Skin Exam: Dry, Intact, Normal Color, Warm Assessment and Plan - Assessment and Plan (Free Text) Assessment: 52F with acute diverticulitis, worsening on non-operative management, now found to have interval free air, macroperforation on CT scan Plan: - stat labs - fluid resuscitation - continue antibiotics - Renee insertion for Is&Os - pre-op - will need OR early AM Further recs discuss with Dr. Hui Woodson, PGY3 <Dank Ames - Last Filed: 05/05/18 18:07> Objective - Vital Signs/Intake and Output Vital Signs (last 24 hours): Temp Pulse Resp BP Pulse Ox 99.1 F 104 H 20 136/84 94 L 05/05/18 15:00 05/05/18 15:00 05/05/18 15:00 05/05/18 15:00 05/05/18 15:00 Intake and Output: 05/05/18 05/05/18 06:59 18:59 Intake Total 1275 Output Total 1055 1115 Balance 220 -1115 - Medications Medications: Current Medications Acetaminophen (Tylenol 325mg Tab) 650 mg PO Q4 PRN PRN Reason: Pain, Mild (1-3) Amlodipine Besylate (Norvasc) 5 mg PO DAILY [facility] Last Admin: 05/05/18 10:20 Dose: 5 mg Heparin Sodium (Porcine) (Heparin) 5,000 units SC Q8 [facility] Last Admin: 05/05/18 14:27 Dose: 5,000 units Hydromorphone HCl (Dilaudid) 0.5 mg IVP Q4H PRN PRN Reason: Pain, severe (8-10) Last Admin: 05/05/18 14:46 Dose: 0.5 mg Piperacillin Sod/Tazobactam Sod (Zosyn 3.375 Gm Iv Premix) 3.375 gm in 50 mls @ 100 mls/hr IVPB Q6H [facility]; Protocol Last Admin: 05/05/18 16:39 Dose: 100 mls/hr Metronidazole (Flagyl) 500 mg in 100 mls @ 100 mls/hr IVPB Q8H [facility]; Protocol Last Admin: 05/05/18 11:45 Dose: 100 mls/hr Potassium Chloride/Dextrose/Sod Cl (Potassium Chl 20 Meq In D5-1/2ns) 1,000 mls @ 125 mls/hr IV .Q8H [facility] Last Admin: 05/05/18 10:20 Dose: Not Given BUPIVACAINE 0.125%/0.9% NACL (Bupivacaine-Ns 0.125% On-Q [employer]) 600 mls @ 7 mls/hr IJ ONCE ONE Stop: 05/09/18 00:42 Pantoprazole Sodium (Protonix Inj) 40 mg IVP Q12H [facility] Last Admin: 05/05/18 10:20 Dose: 40 mg Tramadol HCl (Ultram) 50 mg PO TID PRN PRN Reason: Pain, moderate (4-7) - Labs Labs: 05/05/18 07:51 05/05/18 07:51 PT 15.5 SECONDS (9.7-12.2) H 05/04/18 07:04 INR 1.4 05/04/18 07:04 APTT 35 SECONDS (21-34) H 05/01/18 11:45 Attending/Attestation - Attestation I have personally seen and examined this patient.: Yes I have fully participated in the care of the patient.: Yes I have reviewed all pertinent clinical information, including history, physical exam and plan: Yes Notes (Text): Pt had diffuse abdominal pain after clears Repeat CT scan is suggestive of free air Pt would need Exp lap and colon resection Consent NPO, IVF Patient is clinically stable. c.w IV antibiotics Plan d.w pt in detail
[2018-05-02 23:32] LABS: ALB/GLOB RATIO 1.3 (1.0-2.1); ALBUMIN 3.6 g/dL (3.5-5.0); ALT/SGPT 34 U/L (9-52); AST/SGOT 18 U/L (14-36); BLOOD UREA NITROGEN 8 mg/dL (7-17); CALCIUM 8.5 mg/dl (8.6-10.4); GFR NON-AFRICAN AMERICAN > 60
[2018-05-03] MEDS: Sodium Chloride 0.9% 1,000 ML IV SCH ×4 (01:00→18:57)
[2018-05-03] MEDS: metroNIDAZOLE IV 500 mg/100 ml 500 MG/100 ML BAG IVPB SCH ×3 (03:40→18:58)
[2018-05-03] MEDS: Piperacill/Tazo 3.375gm in Dex 3.375 GM/50 ML BAG IVPB SCH ×4 (04:41→22:47)
[2018-05-03] MEDS: Phytonadione 10 mg/ml Inj (Adult) IV STA ×2 (06:10→06:41)
[2018-05-03] MEDS ORDERED: Phytonadione 10 mg/ml Inj (Adult) SC STA (06:57)
--- NOTE | 2018-05-03 07:22 | CP.PCM.PCO ---
Physician Communication Note - Physician Communication Note Physician Communication Note: patient for possible OR today. please keep NPO
[2018-05-03 07:24] LABS: BASO # 0.1 K/uL (0.0-0.2); BASO % 0.4 % (0.0-2.0); EOS % 0.2 % (0.0-4.0); HEMOGLOBIN 12.2 g/dL (11.0-16.0); LYMPH # 2.2 K/uL (1.0-4.3); LYMPH % 17.8 % (20.0-40.0); MEAN CELL VOLUME 90.5 fL (81.0-99.0); MEAN CORPUSCULAR HEMOGLOBIN 29.4 pg (27.0-31.0); MEAN CORPUSCULAR HGB CONC 32.5 g/dL (33.0-37.0); MEAN PLATELET VOLUME 9.7 fL (7.2-11.7); MONO # 1.1 K/uL (0.0-0.8); MONO % 8.7 % (0.0-10.0); NEUT % 72.9 % (50.0-75.0); NRBC % 0.2 % (0.0-2.0); RBC 4.16 Mil/uL (3.80-5.20); RED CELL DISTRIBUTION WIDTH 13.4 % (11.5-14.5); WHITE BLOOD COUNT 12.4 K/uL (4.8-10.8)
[2018-05-03 07:33] LABS: ALB/GLOB RATIO 1.4 (1.0-2.1); ALBUMIN 3.7 g/dL (3.5-5.0); ALT/SGPT 25 U/L (9-52); AST/SGOT 21 U/L (14-36); BLOOD UREA NITROGEN 9 mg/dL (7-17); CALCIUM 8.6 mg/dl (8.6-10.4); GFR NON-AFRICAN AMERICAN > 60
--- NOTE | 2018-05-03 07:53 | CT ---
CT abdomen and pelvis Worsening diverticulitis. COMPARISON: CT scan dated 04/30/2018 Technique: Multiple contiguous axial images were performed through the abdomen and pelvis with the use of intravenous contrast. Subsequently, sagittal and coronal reformatted images were obtained. This CT exam was performed using one or more of the following dose reduction techniques: Automated exposure control, adjustment of the mA and/or kV according to patient size, and/or use of iterative reconstruction technique. Findings: Scattered atelectasis at the lung bases. No pleural or pericardial effusion. Free intraperitoneal air noted within the upper abdomen. Fatty infiltration of the liver. Prior cholecystectomy. Spleen is preserved. Adrenal glands are preserved. Mild fatty atrophy of the pancreas. Upper abdominal bowel is grossly preserved. Right kidney: No calculi or hydronephrosis. Left Kidney: No calculi or hydronephrosis. Urinary bladder is preserved. Heterogeneous uterus and bilateral adnexa. Again identified is prominent focal thickening of the sigmoid colon with associated diverticuli as well as prominent adjacent mesenteric fat stranding and fluid suggestive for acute diverticulitis. Additional etiologies not excluded. There has been interval development of adjacent foci of free air suggestive for a perforated acute diverticulitis. In addition, posterior to the sigmoid colon, there is a suggestion of a developing phlegmonous collection measuring up to 3.7 x 2.6 centimeters. Adjacent soft tissue calcification measures 8 millimeters. Appendix not well identified. Few shotty para-aortic and inguinal lymph nodes. Few shotty mesenteric lymph nodes. Degenerative changes in the spine. Sclerosis of the bilateral SI joints. Impression: 1. Again identified is prominent focal thickening of the sigmoid colon with associated diverticuli as well as prominent adjacent mesenteric fat stranding and fluid suggestive for acute diverticulitis. Additional etiologies not excluded. There has been interval development of adjacent foci of free air suggestive for a perforated acute diverticulitis. In addition, posterior to the sigmoid colon, there is a suggestion of a developing phlegmonous collection measuring up to 3.7 x 2.6 centimeters. Adjacent soft tissue calcification measures 8 millimeters. 2. Free intraperitoneal air noted within the upper abdomen. 3. Fatty infiltration of the liver. A preliminary report was generated at 9:23 p.m. on 05/02/[address] Erick Ross from [employer]
[2018-05-03 08:25] LABS: INR 1.4
--- NOTE | 2018-05-03 09:28 | CP.PCM.PN ---
<Jada Morales - Last Filed: 05/03/18 20:37> Subjective - Date & Time of Evaluation Date of Evaluation: 05/03/18 Time of Evaluation: 09:28 - Subjective Subjective: Progress Note for Hospitalist service Patient seen and examined at bedside. She complains of persistent lower abdominal pain. She states she vomited once, after she ate food yesterday. Abdomen/pelvis CT yesterday revealed free air, she is scheduled for surgery today. She denies fevers, chills, headache, dizziness, chest pain, shortness of breath, dysuria, leg pain. Objective - Vital Signs/Intake and Output Vital Signs (last 24 hours): Temp Pulse Resp BP Pulse Ox 99.1 F 69 20 129/85 99 05/03/18 08:00 05/03/18 08:00 05/03/18 08:00 05/03/18 08:00 05/03/18 08:00 Intake and Output: 05/03/18 05/03/18 06:59 18:59 Intake Total 800 Balance 800 - Medications Medications: Current Medications Piperacillin Sod/Tazobactam Sod (Zosyn 3.375 Gm Iv Premix) 3.375 gm in 50 mls @ 100 mls/hr IVPB Q6H CYNTHIA; Protocol Last Admin: 05/03/18 04:41 Dose: 100 mls/hr Metronidazole (Flagyl) 500 mg in 100 mls @ 100 mls/hr IVPB Q8H CYNTHIA; Protocol Last Admin: 05/03/18 03:40 Dose: 100 mls/hr Sodium Chloride (Sodium Chloride 0.9%) 1,000 mls @ 150 mls/hr IV .Q6H40M CYNTHIA Last Admin: 05/03/18 06:30 Dose: 150 mls/hr Potassium Chloride (Potassium Chloride 20 Meq/100 Ml) 20 meq in 100 mls @ 50 mls/hr IVPB ONCE ONE Stop: 05/03/18 10:58 Morphine Sulfate (Morphine) 2 mg IVP Q4 PRN PRN Reason: Pain, severe (8-10) Last Admin: 05/02/18 21:53 Dose: 2 mg Ondansetron HCl (Zofran Inj) 4 mg IVP Q6 PRN PRN Reason: Nausea/Vomiting Last Admin: 05/02/18 12:49 Dose: 4 mg Pantoprazole Sodium (Protonix Inj) 40 mg IVP Q12H CYNTHIA Last Admin: 05/02/18 21:49 Dose: 40 mg - Labs Labs: 05/03/18 07:00 05/03/18 07:00 PT 15.0 SECONDS (9.7-12.2) H 05/03/18 08:11 INR 1.4 05/03/18 08:11 APTT 35 SECONDS (21-34) H 05/01/18 11:45 - Constitutional Appears: Well, In Acute Distress, Other (Anxious and tearful about surgery) - Head Exam Head Exam: ATRAUMATIC, NORMOCEPHALIC - Eye Exam Eye Exam: EOMI, PERRL - ENT Exam ENT Exam: Mucous Membranes Moist - Neck Exam Neck Exam: Full ROM - Respiratory Exam Respiratory Exam: Clear to Ausculation Bilateral. absent: Rales, Rhonchi, Wheezes, Respiratory Distress, Stridor - Cardiovascular Exam Cardiovascular Exam: REGULAR RHYTHM, +S1, +S2. absent: Gallop, Rubs, Murmur - GI/Abdominal Exam GI & Abdominal Exam: Soft, Tenderness (Left lower quadrant tenderness, ), Normal Bowel Sounds - Extremities Exam Extremities Exam: Normal Capillary Refill. absent: Calf Tenderness, Pedal Edema - Back Exam Back Exam: absent: CVA tenderness (L), CVA tenderness (R) - Neurological Exam Neurological Exam: Alert, Awake, Oriented x3 - Psychiatric Exam Psychiatric exam: Anxious - Skin Skin Exam: Dry, Intact, Warm Assessment and Plan - Assessment and Plan (Free Text) Assessment: 52 year old female with history of hypertension who presented for acute diver ticulitis, found to have free air on repeat CT scan. Plan: Acute perforated diverticulitis of sigmoid colon Phlegmon of adjacent left adnexal region CT abdomen/pelvis Acute uncomplicated sigmoid diverticulitis.Severe circumferential mural thickening in the gastric pylorus is nonspecific and could be related to nonspecific gastritis however correlation with the EGD may be performed if clinically indicated. Mild hepatomegaly and fatty liver. Repeat CT abdomen/pelvis: prominent focal thickening of sigmoid colon with associated diverticuli as well as prominent adjacent mesenteric fat stranding and fluid suggestive of acute diverticulitis. Interval development of adjacent foci of free air suggestive of perforated acute diverticulitis. Posterior to sigmoid colon, there is suggestion of developing phlegmon 3.7 x 2.6 cm. Adjacent soft tissue calcification measures 8mm. Free intraperitoneal air noted within upper abdomen. Fatty infiltration of liver. Surgery Dr. Ames consulted, help appreciated 05/03/18 Exploratory lap with resection of sigmoid colon, primary colon anastomosis, diverting loop ileostomy, insertion on On-Q pump local anesthesia catheters Patient seen post-operatively on the floors, patient was drowsy. Ostomy bag on RLQ draining blood pink fluid. RAMANA drain on left has bloody output. Anesthesia catheters in place. Dilaudid 1mg Q4 PRN Dilaudid 0.5mg Q4 PRN CXR: no acute disease WBC 12.4 patient is afebrile at this time, Tmax for past 24 hours 99.9 Bcx negative for 48 hours Ucx negative Morphine 2mg IV Q4 PRN NS IV fluids @ 150cc/hr continue Zosyn 3.375g IV Q6 continue Flagyl 500mg Q8 IV continue Protonix 40mg IV q12 No NSAIDS GI Dr. Mota consulted, recommended outpatient colonoscopy in 8-12 weeks. History of hypertension Continue to monitor Not on medications here - normotensive Obesity HbA1C 6.2 Lipid panel TG 109 [id number] LDL 91 HDL 41 TSH 2.01 Prophylaxis: Heparin 5000 unit SC Q8 held for surgery Protonix 40mg IV BID continue NPO diet Case discussed with Dr. Yoana Morales, PGY1 <Keya Lees V - Last Filed: 05/03/18 22:16> Objective - Vital Signs/Intake and Output Vital Signs (last 24 hours): Temp Pulse Resp BP Pulse Ox 98.1 F 73 20 137/91 H 95 05/03/18 18:49 05/03/18 18:49 05/03/18 18:49 05/03/18 18:49 05/03/18 18:49 Intake and Output: 05/03/18 05/04/18 18:59 06:59 Intake Total 2000 100 Output Total 1210 Balance 790 100 - Medications Medications: Current Medications Hydromorphone HCl (Dilaudid) 1 mg IVP Q4H PRN PRN Reason: Pain, severe (8-10) Last Admin: 05/03/18 18:59 Dose: 1 mg Hydromorphone HCl (Dilaudid) 0.5 mg IVP Q4H PRN PRN Reason: Pain, moderate (4-7) Piperacillin Sod/Tazobactam Sod (Zosyn 3.375 Gm Iv Premix) 3.375 gm in 50 mls @ 100 mls/hr IVPB Q6H CYNTHIA; Protocol Last Admin: 05/03/18 17:06 Dose: 50 mls Metronidazole (Flagyl) 500 mg in 100 mls @ 100 mls/hr IVPB Q8H CYNTHIA; Protocol Last Admin: 05/03/18 18:58 Dose: 100 mls/hr Sodium Chloride (Sodium Chloride 0.9%) 1,000 mls @ 150 mls/hr IV .Q6H40M CYNTHIA Last Admin: 05/03/18 18:57 Dose: 150 mls/hr BUPIVACAINE 0.125%/0.9% NACL (Bupivacaine-Ns 0.125% On-Q [employer]) 600 mls @ 4 mls/hr IJ ONCE ONE Stop: 05/09/18 17:06 Ondansetron HCl (Zofran Inj) 4 mg IVP Q6 PRN PRN Reason: Nausea/Vomiting Last Admin: 05/02/18 12:49 Dose: 4 mg Pantoprazole Sodium (Protonix Inj) 40 mg IVP Q12H CYNTHIA Last Admin: 05/03/18 09:48 Dose: 40 mg - Labs Labs: 05/03/18 07:00 05/03/18 07:00 PT 15.0 SECONDS (9.7-12.2) H 05/03/18 08:11 INR 1.4 05/03/18 08:11 APTT 35 SECONDS (21-34) H 05/01/18 11:45 Attending/Attestation - Attestation I have personally seen and examined this patient.: Yes I have fully participated in the care of the patient.: Yes I have reviewed all pertinent clinical information, including history, physical exam and plan: Yes Notes (Text): Patient seen, examined, case discussed with territory sales manager medical. Patient seen postoperatively given requiring needed emergent surgical intervention from made to CT finding noted for free air. DVT prophylaxis discontinued prior to the OR. Patient given vitamin K OR per surgery team IV antibiotics renewed preoperative/intraoperative/postoperative management per surgery Pain management per surgery Will continue to follow patient post OR 1. Acute diverticulitis of sigmoid colon with perforation prior to the OR DVT prophylaxis was discontinued. Phlegmon of adjacent left adnexal region Gastritis Assessment/plan * GI on board help appreciated * General surgery on board help appreciated * Official CAT scan report from May 01, 2018: Acute uncomplicated sigmoid diverticulitis. Severe circumferential mural thickening in the gastric pylorus is nonspecific could be correlated to nonspecific gastritis. Mild hepatomegaly and fatty liver. * CAT scan May 03, 2018. Results including prominent focal thickening of the sigmoid colon with associated diverticuli as well as prominent adjacent mesenteric fat stranding and fluid suggestive for acute diverticulitis intra- abdominal with adjacent foci of free air suggestive of a perforated acute diverticulitis. Posterior to the sigmoid colon is a suggestion of a developing collection 3.7 x 2.6 cm adjacent soft tissue calcification 8 mm. Free intraperitoneal air noted within the upper abdomen fatty infiltration of the liver * Zosyn 3.375 g IV every 6 started on April 29, 2018 * Flagyl 500 mg IV piggyback q. 8 started on May 01, 2017 * Patient for noted surgical intervention today given CT findings * Discussed with surgical forceps fabricator Scotty, [id number]--patient underwent an exploratory laparoscopy converted to exploratory laparotomy with resection of the sigmoid colon, primary colon anastomoses, diverticular bleed ileostomy with insertion of On-Q pump and local anesthesia catheters and Renee insertion. anesthesia had attempted NG tube but patient could not tolerate. With perforation * Repeat INR: 1.4 Patient received vitamin K per surgery team. * Preoperative/intraoperative/postoperative management per surgery surgery team * Blood cultures from May 01, 2018 showing no growth after 48 hours x2 * Urine culture shows no growth 2. History of hypertension Assessment/plan * Patient is not on any medications for blood pressure control * Continue to monitor 3. Obesity Assessment/plan * Lipid panel within normal * A1c 6.2 * TSH within normal 4. Impaired glucose tolerance Assessment/plan * Hemoglobin A1c 6.2 * Patient will need diet and exercise modification counseling to prevent over diabetes given obese habitus 5. Prophylaxis: * held prior to OR dvt ppx * Protonix 40mg IV BID * NPO diet * NS 125cc/hr Disposition: Given the latest CT findings for free air patient underwent surgical intervention today. Preoperative/intraoperative/postoperative management per surgery noted risk assessment prior to the OR in a nursing communication note from same date.
[2018-05-03] MEDS ORDERED: BUPIVACAINE 0.125%/0.9% NACL 600 ML IJ ONE (11:07)
[2018-05-03] MEDS ORDERED: Propofol 10 mg/ml Inj (20 ML) ONE (11:19)
[2018-05-03] MEDS ORDERED: Midazolam 2 MG/2 ML VIAL ONE (11:19)
[2018-05-03] MEDS ORDERED: Bupivacaine HCl 0.5% PF (10 ml) Inj ONE (13:28)
[2018-05-03] MEDS ORDERED: Neostigmine 1:1000 (1 mg/ml) Inj ONE (14:48)
[2018-05-03] MEDS ORDERED: Morphine 4 MG/ML VIAL ONE ×2 (15:42→15:43)
[2018-05-03] MEDS ORDERED: HYDROmorphone 0.5 mg/0.5 ml ISec IVP PRN (16:37)
[2018-05-03] MEDS ORDERED: Lactated Ringer's 1,000 ML IV ONE ×2 (16:39)
--- NOTE | 2018-05-03 16:53 | PCM.SURG1 ---
Surgeon's Initial Post Op Note - Surgeon's Notes Surgeon: Dr. Ames Ballast Cleaning Machine Operator: Emelyn Fajardo, PGY4; SOL Hood; Elizabeth Beaver, PGY2 Type of Anesthesia: General Endo Pre-Operative Diagnosis: Acute sigmoid diverticulitis with perforation Operative Findings: Phelgmonous sigmoid colon with surrounding small amount of purulent fluid in the pelvis. Anastamosis intact with no leaks confirmed by air and water injection tests. see full operative report Post-Operative Diagnosis: same Operation Performed: exploratory laparoscopy converted to exploratory laparo cora, resection of sigmoid colon, primary colon anastamosis, diverting loop ileostomy, insertion of On-Q pump local anesthesia catheters, dowell insertion Specimen/Specimens Removed: sigmoid colon, anastamotic colon edges x2 Estimated Blood Loss: EBL {In ML}: 200 Blood Products Given: N/A Drains Used: Drew Ostomy Device (ileostomy) Date of Surgery/Procedure: 05/03/18 Time of Surgery/Procedure: 11:45
[2018-05-03] MEDS: HYDROmorphone 1 mg/ml ISec IVP PRN (18:59)
[2018-05-04] MEDS: Sodium Chloride 0.9% 1,000 ML IV SCH ×3 (03:00→22:26)
[2018-05-04] MEDS: metroNIDAZOLE IV 500 mg/100 ml 500 MG/100 ML BAG IVPB SCH ×3 (03:35→18:52)
[2018-05-04] MEDS: HYDROmorphone 1 mg/ml ISec IVP PRN ×2 (03:45→07:49)
--- NOTE | 2018-05-04 04:07 | OP ---
PROCEDURE DATE: 05/03/2018 PREOPERATIVE DIAGNOSES: 1. Perforated viscus. 2. Acute abdomen. 3. Phlegmonous diverticulitis. POSTOPERATIVE DIAGNOSES: 1. Perforated diverticulitis with phlegmonous mass. 2. Pelvic abscess. 3. Extensive postinflammatory pelvic adhesion. 4. Morbid obesity. PROCEDURES DONE: 1. Laparoscopic exploration. 2. Laparoscopic mobilization of the left colon. 3. Laparoscopic converted to open sigmoidectomy. 4. Loop ileostomy. 5. Drainage of pelvic abscess. 6. Bilateral On-Q pain catheter pump placement. 7. Extensive adhesiolysis and enterolysis. SURGEON: Dank Ames MD ASSISTANTS: Emelyn Fajardo DO, PGY-4 resident; Elizabeth Beaver DO, PGY-3 resident; and SOL Hood. TYPE OF ANESTHESIA: General endotracheal tube anesthesia. ESTIMATED BLOOD LOSS: Around 200 mL. DRAINS: A 19-Stateless Drew drain was placed. COMPLICATIONS: None. INTRAOPERATIVE FINDINGS: The patient had a morbid obesity as well as large pelvic mass with abscess, and there was colonic perforation of the sigmoid colon with free intraperitoneal foreign body due to perforation, and the patient also had extensive adhesion, and due to morbid obesity, it took approximately 80 to 120 minutes extra for the repeat procedure. DESCRIPTION OF PROCEDURE: On intraoperative steps, this 52-year-old female was diagnosed with recurrent diverticulitis, and the patient was found to have more pain after few days, and the patient's CT scan was suggestive of free air, and the patient was consented for the laparoscopic colon resection, possible open with possible stoma, and the patient was brought to the OR and placed supine on the operating table after induction of the anesthesia. The abdomen was prepped and draped in the usual sterile fashion. A right upper quadrant incision was made using the Visiport technique. Peritoneal cavity was entered. Pneumo was created. Another two 5-mm port was placed at the right upper quadrant and right lower quadrant, and grasper and dissector were introduced. First, phlegmonous mass was identified and the pelvic exploration was done. The patient had no other sign of diverticulitis anywhere else besides the distal sigmoid, and then, the sigmoid colon as well as the distending colon was mobilized to facilitate the open procedure. Now, the procedure was converted to open, and now, the sigmoid colon was resected proximally, and the phlegmonous mass was completely excised after resection of the distal sigmoid at the rectosigmoid junction, and the left ureter was identified, and the specimen was sent off the table for the pathology. The patient had pelvic collection and purulent pelvic abscess that was drained, and the end-to-end anastomosis was done with EEA. A loop ileostomy was done, and peritoneal cavity was closed with #1 loop PDS as well as with interrupted Prolene. The bilateral On-Q pain catheter pump was placed, and pain catheter was connected to the chamber. After completion of the procedure, the ileostomy was matured and the stoma appliance was applied, and the wound was covered with a dry sterile dressing. The patient was extubated in OR and sent to the postanesthesia care unit in stable condition. Dank Ames MD MELANIE
[2018-05-04] MEDS: Piperacill/Tazo 3.375gm in Dex 3.375 GM/50 ML BAG IVPB SCH ×4 (04:15→22:22)
--- NOTE | 2018-05-04 06:54 | CP.PCM.PN ---
<Barbara Maya - Last Filed: 05/04/18 16:08> Subjective - Date & Time of Evaluation Date of Evaluation: 05/04/18 Time of Evaluation: 07:05 - Subjective Subjective: Patient examined at bedside. Patient reports abdominal pain, worse pina- umbilically, extending along midline to suprapubic region rated 8-9/10. Patient reports she has been sleepy since surgery, however is more alert this morning. Denies flatus or BM. Patient has been able to void since dowell d/c-ed, and is tolerating liquid diet. Patient reports use of incentive spirometer 3-4x hourly. Denies chest pain, SOB, nausea. Objective - Vital Signs/Intake and Output Vital Signs (last 24 hours): Temp Pulse Resp BP Pulse Ox 98.6 F 86 20 156/86 H 97 05/03/18 23:23 05/03/18 23:23 05/03/18 23:23 05/03/18 23:23 05/03/18 23:23 Intake and Output: 05/03/18 05/04/18 18:59 06:59 Intake Total 2000 100 Output Total 1210 880 Balance 790 -780 - Medications Medications: Current Medications Hydromorphone HCl (Dilaudid) 1 mg IVP Q4H PRN PRN Reason: Pain, severe (8-10) Last Admin: 05/04/18 03:45 Dose: 1 mg Hydromorphone HCl (Dilaudid) 0.5 mg IVP Q4H PRN PRN Reason: Pain, moderate (4-7) Piperacillin Sod/Tazobactam Sod (Zosyn 3.375 Gm Iv Premix) 3.375 gm in 50 mls @ 100 mls/hr IVPB Q6H CYNTHIA; Protocol Last Admin: 05/04/18 04:15 Dose: 100 mls/hr Metronidazole (Flagyl) 500 mg in 100 mls @ 100 mls/hr IVPB Q8H CYNTHIA; Protocol Last Admin: 05/04/18 03:35 Dose: 100 mls/hr Sodium Chloride (Sodium Chloride 0.9%) 1,000 mls @ 150 mls/hr IV .Q6H40M CYNTHIA Last Admin: 05/04/18 03:00 Dose: 150 mls/hr BUPIVACAINE 0.125%/0.9% NACL (Bupivacaine-Ns 0.125% On-Q [employer]) 600 mls @ 4 mls/hr IJ ONCE ONE Stop: 05/09/18 17:06 Ondansetron HCl (Zofran Inj) 4 mg IVP Q6 PRN PRN Reason: Nausea/Vomiting Last Admin: 05/03/18 22:46 Dose: 4 mg Pantoprazole Sodium (Protonix Inj) 40 mg IVP Q12H CYNTHIA Last Admin: 05/03/18 22:47 Dose: 40 mg - Labs Labs: 05/03/18 07:00 05/03/18 07:00 PT 15.0 SECONDS (9.7-12.2) H 05/03/18 08:11 INR 1.4 05/03/18 08:11 APTT 35 SECONDS (21-34) H 05/01/18 11:45 - Constitutional Appears: Non-toxic, No Acute Distress - Head Exam Head Exam: ATRAUMATIC, NORMAL INSPECTION, NORMOCEPHALIC - Eye Exam Eye Exam: EOMI, Normal appearance - ENT Exam ENT Exam: Mucous Membranes Moist, Normal Exam - Neck Exam Neck Exam: Normal Inspection - Respiratory Exam Respiratory Exam: Clear to Ausculation Bilateral, NORMAL BREATHING PATTERN - Cardiovascular Exam Cardiovascular Exam: REGULAR RHYTHM, +S1, +S2. absent: Tachycardia - GI/Abdominal Exam GI & Abdominal Exam: Soft, Tenderness (diffusely). absent: Distended Additional comments: Multiple dressings Midline with dried blood, others clean/dry/intact No surrounding erythema OnQ in place at 7 Left Drew with serosanguineous drainage Right Ostomy functioning, serosanguineous liquid in bag, no gas; tissue pink/moist - Extremities Exam Extremities Exam: Normal Inspection. absent: Calf Tenderness, Pedal Edema - Neurological Exam Neurological Exam: Alert, Awake, Oriented x3 - Psychiatric Exam Psychiatric exam: Normal Affect, Normal Mood - Skin Skin Exam: Dry, Intact, Normal Color, Warm Assessment and Plan - Assessment and Plan (Free Text) Assessment: 52 year old female with pmhx of diverticultis and HTN admitted for treatment of acute perforated diverticulitis Plan: Acute perforation of sigmoid diverticula with adjacent phlegmon s/p exploratory laparoscopy converted to ex-laparotomy, sigmoid colon resection, primary colonic anastamosis, diverting loop ileostomy; POD #1 -Pain control, OnQ and dilaudid prn -IVF; NS @150 -Liquid diet, ADAT -antiemesis, zofran prn -cont IV Abx; zosyn/flagyl -sx, Dr. Ames HTN, chronic -resume home norvasc -pain control Ppx VTE; heparin, SCDs GI: protonix IS Discussed with Dr. Lees -Barbara Maya, PGY-1 <Keya Lees V - Last Filed: 05/08/18 14:17> Objective - Vital Signs/Intake and Output Vital Signs (last 24 hours): Temp Pulse Resp BP Pulse Ox 97.8 F 75 20 150/96 H 97 05/08/18 08:00 05/08/18 08:00 05/08/18 08:00 05/08/18 08:00 05/08/18 08:00 Intake and Output: 05/08/18 05/08/18 06:59 18:59 Output Total 175 Balance -175 - Medications Medications: Current Medications Acetaminophen (Tylenol 325mg Tab) 650 mg PO Q4 PRN PRN Reason: Pain, Mild (1-3) Last Admin: 05/08/18 07:59 Dose: 650 mg Al Hydrox/Mg Hydrox/Simethicone (Maalox 30 Ml) 30 ml PO Q6 PRN PRN Reason: Indigestion / Heartburn Amlodipine Besylate (Norvasc) 5 mg PO DAILY [facility] Last Admin: 05/08/18 09:00 Dose: 5 mg Heparin Sodium (Porcine) (Heparin) 5,000 units SC Q8 CYNTHIA Last Admin: 05/08/18 13:17 Dose: 5,000 units Hydromorphone HCl (Dilaudid) 0.5 mg IVP Q4H PRN PRN Reason: Pain, severe (8-10) Last Admin: 05/08/18 01:38 Dose: 0.5 mg Piperacillin Sod/Tazobactam Sod (Zosyn 3.375 Gm Iv Premix) 3.375 gm in 50 mls @ 100 mls/hr IVPB Q6H CYNTHIA; Protocol Last Admin: 05/08/18 10:13 Dose: 100 mls/hr Metronidazole (Flagyl) 500 mg in 100 mls @ 100 mls/hr IVPB Q8H CYNTHIA; Protocol Last Admin: 05/08/18 10:35 Dose: 100 mls/hr BUPIVACAINE 0.125%/0.9% NACL (Bupivacaine-Ns 0.125% On-Q [employer]) 600 mls @ 7 mls/hr IJ ONCE ONE Stop: 05/09/18 00:42 Ondansetron HCl (Zofran Inj) 4 mg IVP Q4H PRN PRN Reason: Nausea/Vomiting Last Admin: 05/08/18 13:17 Dose: 4 mg Oxycodone HCl (Oxycodone Immediate Release Tab) 5 mg PO Q4 PRN PRN Reason: Pain, moderate (4-7) Last Admin: 05/08/18 09:00 Dose: 5 mg Pantoprazole Sodium (Protonix Inj) 40 mg IVP Q12H CYNTHIA Last Admin: 05/08/18 10:14 Dose: 40 mg - Labs Labs: 05/08/18 07:14 05/08/18 07:14 PT 15.5 SECONDS (9.7-12.2) H 05/04/18 07:04 INR 1.4 05/04/18 07:04 APTT 35 SECONDS (21-34) H 05/01/18 11:45 Attending/Attestation - Attestation I have personally seen and examined this patient.: Yes I have fully participated in the care of the patient.: Yes I have reviewed all pertinent clinical information, including history, physical exam and plan: Yes Notes (Text): This is late computer entry 05/05/18. Patient seen, examined, and case discussed with day-time resident. Patient is postoperative day 1 for surgery for perforated diverticulitis. P reoperative/intraoperative/postoperative management. Will continue IV abx. Patient encouraged to use the incentive spirometry and remind that if she needs to use pain medications that she should because she had emergent surgery.
[2018-05-04 07:18] LABS: BASO % 0.2 % (0.0-2.0); HEMOGLOBIN 12.9 g/dL (11.0-16.0); LYMPH % 8.1 % (20.0-40.0); MEAN CELL VOLUME 89.8 fL (81.0-99.0); MEAN CORPUSCULAR HEMOGLOBIN 29.4 pg (27.0-31.0); MEAN CORPUSCULAR HGB CONC 32.7 g/dL (33.0-37.0); MEAN PLATELET VOLUME 9.6 fL (7.2-11.7); MONO # 1.3 K/uL (0.0-0.8); MONO % 10.2 % (0.0-10.0); NEUT # 10.3 K/uL (1.8-7.0); NEUT % 81.5 % (50.0-75.0); PLATELET COUNT 298 K/uL (130-400); RBC 4.39 Mil/uL (3.80-5.20); RED CELL DISTRIBUTION WIDTH 13.5 % (11.5-14.5); WHITE BLOOD COUNT 12.7 K/uL (4.8-10.8)
[2018-05-04 07:20] LABS: INR 1.4; PROTHROMBIN TIME 15.5 SECONDS (9.7-12.2)
[2018-05-04 07:34] LABS: ALB/GLOB RATIO 1.3 (1.0-2.1); ALBUMIN 3.2 g/dL (3.5-5.0); ALT/SGPT 24 U/L (9-52); AST/SGOT 26 U/L (14-36); BLOOD UREA NITROGEN 9 mg/dL (7-17); CALCIUM 8.3 mg/dl (8.6-10.4); GFR NON-AFRICAN AMERICAN > 60
[2018-05-04] MEDS: Potassium Ch 20mEq in D5-1/2NS 1,000 ML IV SCH ×3 (08:36→18:52)
[2018-05-04 08:37] LABS: BANDS 1 % (0-2); LYMPHOCYTE 6 % (20-40); MONOCYTE 9 % (0-10); NEUTROPHIL 84 % (50-75); PLATELET ESTIMATE NORMAL (NORMAL); TOTAL CELLS COUNTED 100
[2018-05-04 08:38] LABS: LARGE PLATELETS PRESENT
[2018-05-04 08:39] LABS: ANISOCYTOSIS SLIGHT
[2018-05-04 08:40] LABS: POIKILOCYTOSIS SLIGHT
--- NOTE | 2018-05-04 08:41 | CP.PCM.PN ---
<August Woodson - Last Filed: 05/04/18 08:36> Subjective - Date & Time of Evaluation Date of Evaluation: 05/04/18 Time of Evaluation: 08:36 - Subjective Subjective: SURGERY NOTE FOR DR. GORDON 52F seen and examined at bedside. Patient having appropriate abdominal pain, admits to mild nausea but denies vomiting. Denies subjective fevers or chills. Patient denies flatus or bowel movement. Objective - Vital Signs/Intake and Output Vital Signs (last 24 hours): Temp Pulse Resp BP Pulse Ox 99.3 F 60 18 162/88 H 95 05/04/18 07:10 05/04/18 07:10 05/04/18 07:10 05/04/18 07:10 05/04/18 07:10 Intake and Output: 05/04/18 05/04/18 06:59 18:59 Intake Total 100 Output Total 880 Balance -780 - Medications Medications: Current Medications Hydromorphone HCl (Dilaudid) 1 mg IVP Q4H PRN PRN Reason: Pain, severe (8-10) Last Admin: 05/04/18 07:49 Dose: 1 mg Hydromorphone HCl (Dilaudid) 0.5 mg IVP Q4H PRN PRN Reason: Pain, moderate (4-7) Piperacillin Sod/Tazobactam Sod (Zosyn 3.375 Gm Iv Premix) 3.375 gm in 50 mls @ 100 mls/hr IVPB Q6H [facility]; Protocol Last Admin: 05/04/18 04:15 Dose: 100 mls/hr Metronidazole (Flagyl) 500 mg in 100 mls @ 100 mls/hr IVPB Q8H [facility]; Protocol Last Admin: 05/04/18 03:35 Dose: 100 mls/hr Sodium Chloride (Sodium Chloride 0.9%) 1,000 mls @ 150 mls/hr IV .Q6H40M [facility] Last Admin: 05/04/18 03:00 Dose: 150 mls/hr BUPIVACAINE 0.125%/0.9% NACL (Bupivacaine-Ns 0.125% On-Q Furniture Mover) 600 mls @ 4 mls/hr IJ ONCE ONE Stop: 05/09/18 17:06 Potassium Chloride (Potassium Chloride 10 Meq/100 Ml) 10 meq in 100 mls @ 100 mls/hr IVPB ONCE ONE Stop: 05/04/18 09:14 Potassium Chloride/Dextrose/Sod Cl (Potassium Chl 20 Meq In D5-1/2ns) 1,000 mls @ 125 mls/hr IV .Q8H [facility] Last Admin: 05/04/18 08:36 Dose: 125 mls/hr Ondansetron HCl (Zofran Inj) 4 mg IVP Q6 PRN PRN Reason: Nausea/Vomiting Last Admin: 05/03/18 22:46 Dose: 4 mg Pantoprazole Sodium (Protonix Inj) 40 mg IVP Q12H [facility] Last Admin: 05/03/18 22:47 Dose: 40 mg - Labs Labs: 05/04/18 07:04 05/04/18 07:04 PT 15.5 SECONDS (9.7-12.2) H 05/04/18 07:04 INR 1.4 05/04/18 07:04 APTT 35 SECONDS (21-34) H 05/01/18 11:45 - Constitutional Appears: Non-toxic, No Acute Distress - Respiratory Exam Respiratory Exam: Clear to Ausculation Bilateral, NORMAL BREATHING PATTERN - Cardiovascular Exam Cardiovascular Exam: REGULAR RHYTHM, +S1, +S2 - GI/Abdominal Exam GI & Abdominal Exam: Soft, Tenderness. absent: Distended, Firm, Guarding, Rigid, Rebound Additional comments: dressing CDI OnQ in place Drew drain with serosanguinous output - Neurological Exam Neurological Exam: Alert, Awake - Skin Skin Exam: Dry, Intact, Normal Color, Warm Assessment and Plan - Assessment and Plan (Free Text) Assessment: 52F s/p exploratory laparoscopy converted to exploratory laparotomy, resection of sigmoid colon, primary colon anastamosis, diverting loop ileostomy POD#1 Plan: - Await bowel function - Pain control - advance diet as tolerated - DC dowell, void trial - Further recs discuss with Dr. Hui Woodson, PGY3 <Dank Ames - Last Filed: 05/05/18 18:05> Objective - Vital Signs/Intake and Output Vital Signs (last 24 hours): Temp Pulse Resp BP Pulse Ox 99.1 F 104 H 20 136/84 94 L 05/05/18 15:00 05/05/18 15:00 05/05/18 15:00 05/05/18 15:00 05/05/18 15:00 Intake and Output: 05/05/18 05/05/18 06:59 18:59 Intake Total 1275 Output Total 1055 1115 Balance 220 -1115 - Medications Medications: Current Medications Acetaminophen (Tylenol 325mg Tab) 650 mg PO Q4 PRN PRN Reason: Pain, Mild (1-3) Amlodipine Besylate (Norvasc) 5 mg PO DAILY [facility] Last Admin: 05/05/18 10:20 Dose: 5 mg Heparin Sodium (Porcine) (Heparin) 5,000 units SC Q8 [facility] Last Admin: 05/05/18 14:27 Dose: 5,000 units Hydromorphone HCl (Dilaudid) 0.5 mg IVP Q4H PRN PRN Reason: Pain, severe (8-10) Last Admin: 05/05/18 14:46 Dose: 0.5 mg Piperacillin Sod/Tazobactam Sod (Zosyn 3.375 Gm Iv Premix) 3.375 gm in 50 mls @ 100 mls/hr IVPB Q6H [facility]; Protocol Last Admin: 05/05/18 16:39 Dose: 100 mls/hr Metronidazole (Flagyl) 500 mg in 100 mls @ 100 mls/hr IVPB Q8H [facility]; Protocol Last Admin: 05/05/18 11:45 Dose: 100 mls/hr Potassium Chloride/Dextrose/Sod Cl (Potassium Chl 20 Meq In D5-1/2ns) 1,000 mls @ 125 mls/hr IV .Q8H [facility] Last Admin: 05/05/18 10:20 Dose: Not Given BUPIVACAINE 0.125%/0.9% NACL (Bupivacaine-Ns 0.125% On-Q Furniture Mover) 600 mls @ 7 mls/hr IJ ONCE ONE Stop: 05/09/18 00:42 Pantoprazole Sodium (Protonix Inj) 40 mg IVP Q12H [facility] Last Admin: 05/05/18 10:20 Dose: 40 mg Tramadol HCl (Ultram) 50 mg PO TID PRN PRN Reason: Pain, moderate (4-7) - Labs Labs: 05/05/18 07:51 05/05/18 07:51 PT 15.5 SECONDS (9.7-12.2) H 05/04/18 07:04 INR 1.4 05/04/18 07:04 APTT 35 SECONDS (21-34) H 05/01/18 11:45 Attending/Attestation - Attestation I have personally seen and examined this patient.: Yes I have fully participated in the care of the patient.: Yes I have reviewed all pertinent clinical information, including history, physical exam and plan: Yes Notes (Text): Pt was seen and examined at bedside Agree with above note and assessment Pt is stable clinically Pain is improved c.w IV antibiotics start clears today Plan d.w pt in detail
--- NOTE | 2018-05-04 10:36 | CP.PCM.PN ---
<Bean Patiño - Last Filed: 05/04/18 10:46> Subjective - Date & Time of Evaluation Date of Evaluation: 05/04/18 Time of Evaluation: 07:15 - Subjective Subjective: PGY6 GI Fellow Progress Note Patient seen and examined bedside this morning. The patient states she is having pain at this time diffusely across the abdomen. Denies any nausea, vomiting. 12 system ROS performed and negative except where stated Objective - Vital Signs/Intake and Output Vital Signs (last 24 hours): Temp Pulse Resp BP Pulse Ox 99.3 F 60 18 162/88 H 95 05/04/18 07:10 05/04/18 07:10 05/04/18 07:10 05/04/18 07:10 05/04/18 07:10 Intake and Output: 05/04/18 05/04/18 06:59 18:59 Intake Total 100 Output Total 880 Balance -780 - Medications Medications: Current Medications Heparin Sodium (Porcine) (Heparin) 5,000 units SC Q8 [facility] Hydromorphone HCl (Dilaudid) 0.5 mg IVP Q4H PRN PRN Reason: Pain, moderate (4-7) Piperacillin Sod/Tazobactam Sod (Zosyn 3.375 Gm Iv Premix) 3.375 gm in 50 mls @ 100 mls/hr IVPB Q6H [facility]; Protocol Last Admin: 05/04/18 10:05 Dose: 100 mls/hr Metronidazole (Flagyl) 500 mg in 100 mls @ 100 mls/hr IVPB Q8H [facility]; Protocol Last Admin: 05/04/18 03:35 Dose: 100 mls/hr Sodium Chloride (Sodium Chloride 0.9%) 1,000 mls @ 150 mls/hr IV .Q6H40M [facility] Last Admin: 05/04/18 03:00 Dose: 150 mls/hr BUPIVACAINE 0.125%/0.9% NACL (Bupivacaine-Ns 0.125% On-Q Hog Tender) 600 mls @ 4 mls/hr IJ ONCE ONE Stop: 05/09/18 17:06 Potassium Chloride/Dextrose/Sod Cl (Potassium Chl 20 Meq In D5-1/2ns) 1,000 mls @ 125 mls/hr IV .Q8H [facility] Last Admin: 05/04/18 08:36 Dose: 125 mls/hr Ondansetron HCl (Zofran Inj) 4 mg IVP Q6 PRN PRN Reason: Nausea/Vomiting Last Admin: 05/03/18 22:46 Dose: 4 mg Pantoprazole Sodium (Protonix Inj) 40 mg IVP Q12H [facility] Last Admin: 05/04/18 10:05 Dose: 40 mg - Labs Labs: 05/04/18 07:04 05/04/18 07:04 PT 15.5 SECONDS (9.7-12.2) H 05/04/18 07:04 INR 1.4 05/04/18 07:04 APTT 35 SECONDS (21-34) H 05/01/18 11:45 - Constitutional Appears: Non-toxic, No Acute Distress - Eye Exam Eye Exam: EOMI, PERRL - ENT Exam ENT Exam: Mucous Membranes Moist - Respiratory Exam Respiratory Exam: Decreased Breath Sounds. absent: Rales, Rhonchi, Wheezes - Cardiovascular Exam Cardiovascular Exam: RRR, +S1, +S2 - GI/Abdominal Exam GI & Abdominal Exam: Soft, Tenderness (diffusely), Hypoactive Bowel Sounds. absent: Distended, Firm, Guarding, Rigid, Organomegaly Additional comments: laparoscopic sites clean and intact; drain in place; ostomy in LLQ - Extremities Exam Extremities Exam: Normal Inspection. absent: Pedal Edema - Neurological Exam Neurological Exam: Alert, Awake, Oriented x3 - Psychiatric Exam Psychiatric exam: Normal Affect, Normal Mood - Skin Skin Exam: Dry, Warm Assessment and Plan - Assessment and Plan (Free Text) Assessment: Patient is a 52yo female with PMHx significant for HTN who presented to the ED with abdominal pain -Acute sigmoid diverticulitis Plan: -S/P exploratory laparoscopy converted to exploratory laparotomy with sigmoid resection and diverting loop ileostomy; post-op management per surgical team -On liquid diet presently per surgery -Outpatient GI follow up with colonoscopy prior to reversal of ileostomy recommended -No further recommendations presently, please reconsult as needed <Tushar Mota - Last Filed: 05/04/18 11:02> Objective - Vital Signs/Intake and Output Vital Signs (last 24 hours): Temp Pulse Resp BP Pulse Ox 99.3 F 60 18 162/88 H 95 05/04/18 07:10 05/04/18 07:10 05/04/18 07:10 05/04/18 07:10 05/04/18 07:10 Intake and Output: 05/04/18 05/04/18 06:59 18:59 Intake Total 100 Output Total 880 Balance -780 - Medications Medications: Current Medications Heparin Sodium (Porcine) (Heparin) 5,000 units SC Q8 [facility] Hydromorphone HCl (Dilaudid) 0.5 mg IVP Q4H PRN PRN Reason: Pain, moderate (4-7) Piperacillin Sod/Tazobactam Sod (Zosyn 3.375 Gm Iv Premix) 3.375 gm in 50 mls @ 100 mls/hr IVPB Q6H [facility]; Protocol Last Admin: 05/04/18 10:05 Dose: 100 mls/hr Metronidazole (Flagyl) 500 mg in 100 mls @ 100 mls/hr IVPB Q8H [facility]; Protocol Last Admin: 05/04/18 03:35 Dose: 100 mls/hr Sodium Chloride (Sodium Chloride 0.9%) 1,000 mls @ 150 mls/hr IV .Q6H40M [facility] Last Admin: 05/04/18 03:00 Dose: 150 mls/hr BUPIVACAINE 0.125%/0.9% NACL (Bupivacaine-Ns 0.125% On-Q Hog Tender) 600 mls @ 4 mls/hr IJ ONCE ONE Stop: 05/09/18 17:06 Potassium Chloride/Dextrose/Sod Cl (Potassium Chl 20 Meq In D5-1/2ns) 1,000 mls @ 125 mls/hr IV .Q8H [facility] Last Admin: 05/04/18 08:36 Dose: 125 mls/hr Ondansetron HCl (Zofran Inj) 4 mg IVP Q6 PRN PRN Reason: Nausea/Vomiting Last Admin: 05/03/18 22:46 Dose: 4 mg Pantoprazole Sodium (Protonix Inj) 40 mg IVP Q12H [facility] Last Admin: 05/04/18 10:05 Dose: 40 mg - Labs Labs: 05/04/18 07:04 05/04/18 07:04 PT 15.5 SECONDS (9.7-12.2) H 05/04/18 07:04 INR 1.4 05/04/18 07:04 APTT 35 SECONDS (21-34) H 05/01/18 11:45 Attending/Attestation - Attestation I have personally seen and examined this patient.: Yes I have fully participated in the care of the patient.: Yes I have reviewed all pertinent clinical information, including history, physical exam and plan: Yes Notes (Text): 05/04/18 10:54 Patient found to have evidence of perforation on repeat CT SCan and taken to OR where phlegmon in sigmoid was discovered and sigmoid resection and removal of phlegmon was performed with primary anastamosis along with loop ileostomy to RLQ. Patient appears comfortable and is consuming clear liquids. Ileostomy with green stool in RLQ and RAMANA with 15cc of serosanguinous fluid in LLQ with clean and dry verticle dressing intact. Absent BS. Continue IV antibiotics Post op care per surgical service. Ambulation and gait training Out patient referral for colonoscopy advised when medically stable to assess colon following reversal of ileostomy. Recall GI service as needed, will sign off at this time. Thank you
[2018-05-04] MEDS: HYDROmorphone 0.5 mg/0.5 ml ISec IVP PRN ×3 (12:19→20:36)
[2018-05-05] MEDS: HYDROmorphone 0.5 mg/0.5 ml ISec IVP PRN ×6 (00:16→23:55)
[2018-05-05] MEDS: metroNIDAZOLE IV 500 mg/100 ml 500 MG/100 ML BAG IVPB SCH ×3 (04:06→18:07)
[2018-05-05] MEDS: Potassium Ch 20mEq in D5-1/2NS 1,000 ML IV SCH ×2 (04:09→10:20)
[2018-05-05] MEDS: Piperacill/Tazo 3.375gm in Dex 3.375 GM/50 ML BAG IVPB SCH ×4 (04:11→21:45)
--- NOTE | 2018-05-05 07:20 | CP.PCM.PN ---
<Felix Collado - Last Filed: 05/05/18 16:14> Subjective - Date & Time of Evaluation Date of Evaluation: 05/05/18 Time of Evaluation: 07:19 - Subjective Subjective: PGY-1 Medicine Progress Note for Dr. Lees Patient seen and examined at bedside this AM, resting comfortably. No acute overnight events reported. Patient continues to endorse generalized abdominal pain and nausea with PO intake, denies any new episodes of vomiting, diarrhea/constipation. Patient has been OOB to bathroom, walks around room, uses incentive spirometer as instructed. Patient states she has been cleaning out her own ileostomy bag/drain. Instructed patient to stop doing so in order to avoid increased risk of infection, informed her nursing will change as needed. Objective - Vital Signs/Intake and Output Vital Signs (last 24 hours): Temp Pulse Resp BP Pulse Ox 99.5 F 69 20 166/88 H 94 L 05/05/18 00:00 05/05/18 00:00 05/05/18 00:00 05/05/18 00:00 05/05/18 00:00 Intake and Output: 05/05/18 05/05/18 06:59 18:59 Intake Total 1275 Output Total 1055 Balance 220 - Medications Medications: Current Medications Amlodipine Besylate (Norvasc) 5 mg PO DAILY [facility] Last Admin: 05/04/18 16:29 Dose: 5 mg Heparin Sodium (Porcine) (Heparin) 5,000 units SC Q8 [facility] Last Admin: 05/05/18 06:10 Dose: Not Given Hydromorphone HCl (Dilaudid) 0.5 mg IVP Q4H PRN PRN Reason: Pain, moderate (4-7) Last Admin: 05/05/18 05:29 Dose: 0.5 mg Piperacillin Sod/Tazobactam Sod (Zosyn 3.375 Gm Iv Premix) 3.375 gm in 50 mls @ 100 mls/hr IVPB Q6H [facility]; Protocol Last Admin: 05/05/18 04:11 Dose: 100 mls/hr Metronidazole (Flagyl) 500 mg in 100 mls @ 100 mls/hr IVPB Q8H [facility]; Protocol Last Admin: 05/05/18 04:06 Dose: 100 mls/hr Sodium Chloride (Sodium Chloride 0.9%) 1,000 mls @ 150 mls/hr IV .Q6H40M [facility] Last Admin: 05/04/18 22:26 Dose: Not Given BUPIVACAINE 0.125%/0.9% NACL (Bupivacaine-Ns 0.125% On-Q Supervisor Microwave) 600 mls @ 4 mls/hr IJ ONCE ONE Stop: 05/09/18 17:06 Potassium Chloride/Dextrose/Sod Cl (Potassium Chl 20 Meq In D5-1/2ns) 1,000 mls @ 125 mls/hr IV .Q8H [facility] Last Admin: 05/05/18 04:09 Dose: 125 mls/hr Pantoprazole Sodium (Protonix Inj) 40 mg IVP Q12H [facility] Last Admin: 05/04/18 22:21 Dose: 40 mg - Labs Labs: 05/04/18 07:04 05/04/18 07:04 PT 15.5 SECONDS (9.7-12.2) H 05/04/18 07:04 INR 1.4 05/04/18 07:04 APTT 35 SECONDS (21-34) H 05/01/18 11:45 - Constitutional Appears: Non-toxic, No Acute Distress - Head Exam Head Exam: ATRAUMATIC, NORMAL INSPECTION, NORMOCEPHALIC - Eye Exam Eye Exam: EOMI, Normal appearance, PERRL Pupil Exam: NORMAL ACCOMODATION - ENT Exam ENT Exam: Mucous Membranes Moist, Normal Exam - Neck Exam Neck Exam: Full ROM, Normal Inspection - Respiratory Exam Respiratory Exam: Clear to Ausculation Bilateral, NORMAL BREATHING PATTERN. a bsent: Accessory Muscle Use, Rales, Rhonchi, Wheezes, Respiratory Distress, Stridor - Cardiovascular Exam Cardiovascular Exam: REGULAR RHYTHM, +S1, +S2 - GI/Abdominal Exam GI & Abdominal Exam: Distended, Guarding (voluntary), Soft, Tenderness (mild generalized TTP). absent: Firm, Rigid, Rebound Additional comments: dressing c/d/i drew drain in place onQ in place stoma pink, patent ostomy appliance w/ bilious output - Extremities Exam Extremities Exam: Full ROM, Normal Capillary Refill, Normal Inspection - Neurological Exam Neurological Exam: Alert, Awake, Normal Gait, Oriented x3 - Psychiatric Exam Psychiatric exam: Normal Affect, Normal Mood - Skin Skin Exam: Dry, Intact, Normal Color, Warm Assessment and Plan - Assessment and Plan (Free Text) Assessment: 52 year old F with PMHx of HTN presenting with perforated acute diverticulitis POD#2, s/p sigmoidectomy w/ diverting loop ileostomy. Plan: Acute diverticulitis of sigmoid colon with perforation Phlegmon of adjacent left adnexal region Hx of Gastritis -Preoperative/intraoperative/postoperative management per General Surgery team (Dr. Ames) -Pt underwent an exploratory laparoscopy converted to exploratory laparotomy with resection of the sigmoid colon, primary colon anastomoses, diverticular bleed ileostomy with insertion of On-Q pump and local anesthesia catheters and Renee insertion. anesthesia had attempted NG tube but patient could not tolerate. With perforation -CT abdomen/pelvis (05/01): Acute uncomplicated sigmoid diverticulitis. Severe circumferential mural thickening in the gastric pylorus is nonspecific could be correlated to nonspecific gastritis. Mild hepatomegaly and fatty liver. -CT abdomen/pelvis (05/03): Results including prominent focal thickening of the sigmoid colon with associated diverticuli as well as prominent adjacent mesenteric fat stranding and fluid suggestive for acute diverticulitis intra- abdominal with adjacent foci of free air suggestive of a perforated acute diverticulitis. Posterior to the sigmoid colon is a suggestion of a developing collection 3.7 x 2.6 cm adjacent soft tissue calcification 8 mm. Free intraperitoneal air noted within the upper abdomen fatty infiltration of the liver -General Surgery (Dr. Ames) recs appreciated -pain meds adjusted, onQ replaced -continue monitoring BM, drain output -IV abx -GI recs (Dr. Mota) appreciated -outpatient referral for colonoscopy advised when medically stable to assess colon following reversal of ileostomy -Zosyn 3.375 g IV q6 (started on 04/29) -Flagyl 500 mg IVP q8 (started on 05/01) Leukocytosis -WBC uptrending, 17.2 (05/05) -BCx, urine Cx, stool cx: no growth -given 1 dose of meropenem -ID (Dr. Wong) consulted Hx of HTN -Norvasc 5 mg PO daily Obesity -A1C: 6.2 -TSH wnl -Lipid panel wnl Impaired glucose tolerance -A1C: 6.2 -Patient will need diet and exercise modification counseling to prevent over diabetes given obese habitus PPx, Diet, Disposition -DVT ppx: scds, heparin 5000 units sc q8 -GI ppx: protonix 40 mg daily -Diet: Liquid Diet -PT on case Case discussed with Dr. Yoana Collado DO, PGY-1 <Keya Lees V - Last Filed: 05/08/18 14:22> Objective - Vital Signs/Intake and Output Vital Signs (last 24 hours): Temp Pulse Resp BP Pulse Ox 97.8 F 75 20 150/96 H 97 05/08/18 08:00 05/08/18 08:00 05/08/18 08:00 05/08/18 08:00 05/08/18 08:00 Intake and Output: 05/08/18 05/08/18 06:59 18:59 Output Total 175 Balance -175 - Medications Medications: Current Medications Acetaminophen (Tylenol 325mg Tab) 650 mg PO Q4 PRN PRN Reason: Pain, Mild (1-3) Last Admin: 05/08/18 07:59 Dose: 650 mg Al Hydrox/Mg Hydrox/Simethicone (Maalox 30 Ml) 30 ml PO Q6 PRN PRN Reason: Indigestion / Heartburn Amlodipine Besylate (Norvasc) 5 mg PO DAILY [facility] Last Admin: 05/08/18 09:00 Dose: 5 mg Heparin Sodium (Porcine) (Heparin) 5,000 units SC Q8 [facility] Last Admin: 05/08/18 13:17 Dose: 5,000 units Hydromorphone HCl (Dilaudid) 0.5 mg IVP Q4H PRN PRN Reason: Pain, severe (8-10) Last Admin: 05/08/18 01:38 Dose: 0.5 mg Piperacillin Sod/Tazobactam Sod (Zosyn 3.375 Gm Iv Premix) 3.375 gm in 50 mls @ 100 mls/hr IVPB Q6H [facility]; Protocol Last Admin: 05/08/18 10:13 Dose: 100 mls/hr Metronidazole (Flagyl) 500 mg in 100 mls @ 100 mls/hr IVPB Q8H [facility]; Protocol Last Admin: 05/08/18 10:35 Dose: 100 mls/hr BUPIVACAINE 0.125%/0.9% NACL (Bupivacaine-Ns 0.125% On-Q Supervisor Microwave) 600 mls @ 7 mls/hr IJ ONCE ONE Stop: 05/09/18 00:42 Ondansetron HCl (Zofran Inj) 4 mg IVP Q4H PRN PRN Reason: Nausea/Vomiting Last Admin: 05/08/18 13:17 Dose: 4 mg Oxycodone HCl (Oxycodone Immediate Release Tab) 5 mg PO Q4 PRN PRN Reason: Pain, moderate (4-7) Last Admin: 05/08/18 09:00 Dose: 5 mg Pantoprazole Sodium (Protonix Inj) 40 mg IVP Q12H [facility] Last Admin: 05/08/18 10:14 Dose: 40 mg - Labs Labs: 05/08/18 07:14 05/08/18 07:14 PT 15.5 SECONDS (9.7-12.2) H 05/04/18 07:04 INR 1.4 05/04/18 07:04 APTT 35 SECONDS (21-34) H 05/01/18 11:45 Attending/Attestation - Attestation I have personally seen and examined this patient.: Yes I have fully participated in the care of the patient.: Yes I have reviewed all pertinent clinical information, including history, physical exam and plan: Yes Notes (Text): This is late computer entry for 05/05/18. Patient seen, examined and case discussed with day-time resident. Patient's noted abdominal pain, has had flatus and noted output over the ostomy and Drew Drain. Patient noting she is changing the ostomy output and Drew Drain. I spoke with patient's nurse Gris given the patient has not had proper instruction on how to change her ostomy little bone change or blade drain. We will follow-up with both surgery as well as wound care nurse specialist show to help patient regarding the liquid outputs that she has been trying to change herself as well as to assist with clinical partner to help her get through this as she slowly recovers. Patient is postoperative day 2 however white count is increasing. We did give a dose of meropenem 1 g x1 ID was consulted. We will continue Zosyn and Flagyl. Patient was recultured blood cultures as well as urine culture but I am not suspecting further infection. Preoperative/intraoperative/postoperative management per surgery
[2018-05-05 08:09] LABS: BASO % 0.2 % (0.0-2.0); EOS % 0.1 % (0.0-4.0); LYMPH # 1.4 K/uL (1.0-4.3); MEAN CELL VOLUME 89.8 fL (81.0-99.0); MEAN CORPUSCULAR HEMOGLOBIN 29.4 pg (27.0-31.0); MEAN CORPUSCULAR HGB CONC 32.7 g/dL (33.0-37.0); MEAN PLATELET VOLUME 9.4 fL (7.2-11.7); MONO # 1.6 K/uL (0.0-0.8); MONO % 9.5 % (0.0-10.0); NEUT # 14.2 K/uL (1.8-7.0); NEUT % 82.2 % (50.0-75.0); NRBC % 0.1 % (0.0-2.0); PLATELET COUNT 369 K/uL (130-400); RBC 4.75 Mil/uL (3.80-5.20); RED CELL DISTRIBUTION WIDTH 13.5 % (11.5-14.5); WHITE BLOOD COUNT 17.2 K/uL (4.8-10.8)
[2018-05-05 08:23] LABS: ALB/GLOB RATIO 1.2 (1.0-2.1); ALBUMIN 3.3 g/dL (3.5-5.0); ALT/SGPT 25 U/L (9-52); AST/SGOT 28 U/L (14-36); BLOOD UREA NITROGEN 7 mg/dL (7-17); CALCIUM 8.3 mg/dl (8.6-10.4); GFR NON-AFRICAN AMERICAN > 60
[2018-05-05 09:27] LABS: LYMPHOCYTE 5 % (20-40); MONOCYTE 9 % (0-10); NEUTROPHIL 86 % (50-75); PLATELET ESTIMATE NORMAL (NORMAL); TOTAL CELLS COUNTED 100
[2018-05-05] MEDS ORDERED: Potassium Phosphate 15 MMOLE in Dextrose 5% In Water 250 ML IVPB ONE (11:00)
[2018-05-05] MEDS ORDERED: BUPIVACAINE 0.125%/0.9% NACL 600 ML IJ ONE (11:00)
--- NOTE | 2018-05-05 13:53 | CP.PCM.PN ---
<[place] - Last Filed: 05/05/18 13:51> Subjective - Date & Time of Evaluation Date of Evaluation: 05/05/18 Time of Evaluation: 07:00 - Subjective Subjective: General Surgery Dr. Ames Pt seen and examined @bedside. no acute events overnight. Pt c/o pain this AM. states onQ ran out sometime in the night and has need IV meds Q4. pt admits to nausea w/ pain and PO intake. denies vomiting, F/C, D/C. (-)BM/Flatus. OOB to bathroom. Drew 110cc x24hrs, serous Objective - Vital Signs/Intake and Output Vital Signs (last 24 hours): Temp Pulse Resp BP Pulse Ox 98.6 F 72 20 162/89 H 95 05/05/18 08:00 05/05/18 08:00 05/05/18 08:00 05/05/18 08:00 05/05/18 08:00 Intake and Output: 05/05/18 05/05/18 06:59 18:59 Intake Total 1275 Output Total 1055 1115 Balance 220 -1115 - Medications Medications: Current Medications Acetaminophen (Tylenol 325mg Tab) 650 mg PO Q4 PRN PRN Reason: Pain, Mild (1-3) Amlodipine Besylate (Norvasc) 5 mg PO DAILY [facility] Last Admin: 05/05/18 10:20 Dose: 5 mg Heparin Sodium (Porcine) (Heparin) 5,000 units SC Q8 [facility] Last Admin: 05/05/18 06:10 Dose: Not Given Hydromorphone HCl (Dilaudid) 0.5 mg IVP Q4H PRN PRN Reason: Pain, severe (8-10) Last Admin: 05/05/18 10:16 Dose: 0.5 mg Piperacillin Sod/Tazobactam Sod (Zosyn 3.375 Gm Iv Premix) 3.375 gm in 50 mls @ 100 mls/hr IVPB Q6H [facility]; Protocol Last Admin: 05/05/18 10:20 Dose: 100 mls/hr Metronidazole (Flagyl) 500 mg in 100 mls @ 100 mls/hr IVPB Q8H [facility]; Protocol Last Admin: 05/05/18 11:45 Dose: 100 mls/hr Potassium Chloride/Dextrose/Sod Cl (Potassium Chl 20 Meq In D5-1/2ns) 1,000 mls @ 125 mls/hr IV .Q8H [facility] Last Admin: 05/05/18 10:20 Dose: Not Given BUPIVACAINE 0.125%/0.9% NACL (Bupivacaine-Ns 0.125% On-Q Distribution Engineering Technologist) 600 mls @ 7 mls/hr IJ ONCE ONE Stop: 05/09/18 00:42 Potassium Phosphate 15 mmole/ (Dextrose) 255 mls @ 42.5 mls/hr IVPB ONCE ONE Stop: 05/05/18 16:59 Pantoprazole Sodium (Protonix Inj) 40 mg IVP Q12H [facility] Last Admin: 05/05/18 10:20 Dose: 40 mg Tramadol HCl (Ultram) 50 mg PO TID PRN PRN Reason: Pain, moderate (4-7) - Labs Labs: 05/05/18 07:51 05/05/18 07:51 PT 15.5 SECONDS (9.7-12.2) H 05/04/18 07:04 INR 1.4 05/04/18 07:04 APTT 35 SECONDS (21-34) H 05/01/18 11:45 - Constitutional Appears: Non-toxic, No Acute Distress - Head Exam Head Exam: NORMAL INSPECTION - Eye Exam Eye Exam: Normal appearance - ENT Exam ENT Exam: Mucous Membranes Moist - Respiratory Exam Respiratory Exam: NORMAL BREATHING PATTERN. absent: Accessory Muscle Use, Respiratory Distress - Cardiovascular Exam Cardiovascular Exam: REGULAR RHYTHM. absent: Bradycardia, Tachycardia - GI/Abdominal Exam GI & Abdominal Exam: Distended (mild; obese), Guarding (voluntary), Soft, Tenderness (appropriate TTP). absent: Firm, Rigid Additional comments: dressing c/d/i drew in place onQ in place stoma pink, patent ostomy appliance w/ bilious output - Extremities Exam Extremities Exam: Normal Inspection - Neurological Exam Neurological Exam: Alert, Awake, Oriented x3 - Psychiatric Exam Psychiatric exam: Normal Affect - Skin Skin Exam: Dry, Intact, Normal Color, Warm Assessment and Plan - Assessment and Plan (Free Text) Assessment: 52 y/o F w/ perforated acute diverticulitis POD#2 s/p sigmoidectomy w/ diverting loop ileostomy. Plan: - encourage OOb to chair/amb/IS use - pain meds adjusted, onQ replaced - monitor drain output - cont CLD - monitor bowel fxn - cont Abx - DVT PPx Pt discussed w/ Dr. Hui River DO PGY3 <Dank Ames B - Last Filed: 05/05/18 18:08> Objective - Vital Signs/Intake and Output Vital Signs (last 24 hours): Temp Pulse Resp BP Pulse Ox 99.1 F 104 H 20 136/84 94 L 05/05/18 15:00 05/05/18 15:00 05/05/18 15:00 05/05/18 15:00 05/05/18 15:00 Intake and Output: 05/05/18 05/05/18 06:59 18:59 Intake Total 1275 Output Total 1055 1115 Balance 220 -1115 - Medications Medications: Current Medications Acetaminophen (Tylenol 325mg Tab) 650 mg PO Q4 PRN PRN Reason: Pain, Mild (1-3) Amlodipine Besylate (Norvasc) 5 mg PO DAILY [facility] Last Admin: 05/05/18 10:20 Dose: 5 mg Heparin Sodium (Porcine) (Heparin) 5,000 units SC Q8 [facility] Last Admin: 05/05/18 14:27 Dose: 5,000 units Hydromorphone HCl (Dilaudid) 0.5 mg IVP Q4H PRN PRN Reason: Pain, severe (8-10) Last Admin: 05/05/18 14:46 Dose: 0.5 mg Piperacillin Sod/Tazobactam Sod (Zosyn 3.375 Gm Iv Premix) 3.375 gm in 50 mls @ 100 mls/hr IVPB Q6H [facility]; Protocol Last Admin: 05/05/18 16:39 Dose: 100 mls/hr Metronidazole (Flagyl) 500 mg in 100 mls @ 100 mls/hr IVPB Q8H [facility]; Protocol Last Admin: 05/05/18 18:07 Dose: 100 mls/hr Potassium Chloride/Dextrose/Sod Cl (Potassium Chl 20 Meq In D5-1/2ns) 1,000 mls @ 125 mls/hr IV .Q8H [facility] Last Admin: 05/05/18 10:20 Dose: Not Given BUPIVACAINE 0.125%/0.9% NACL (Bupivacaine-Ns 0.125% On-Q Distribution Engineering Technologist) 600 mls @ 7 mls/hr IJ ONCE ONE Stop: 05/09/18 00:42 Pantoprazole Sodium (Protonix Inj) 40 mg IVP Q12H [facility] Last Admin: 05/05/18 10:20 Dose: 40 mg Tramadol HCl (Ultram) 50 mg PO TID PRN PRN Reason: Pain, moderate (4-7) - Labs Labs: 05/05/18 07:51 05/05/18 07:51 PT 15.5 SECONDS (9.7-12.2) H 05/04/18 07:04 INR 1.4 05/04/18 07:04 APTT 35 SECONDS (21-34) H 05/01/18 11:45 Attending/Attestation - Attestation I have personally seen and examined this patient.: Yes I have fully participated in the care of the patient.: Yes I have reviewed all pertinent clinical information, including history, physical exam and plan: Yes Notes (Text): Pt was seen and examined at bedside Agree with above note and assessment Pt is improving clinically c.w IV antibiotics Full liquid today OOB to walk Plan d.w pt in detail
[2018-05-05] MEDS ORDERED: Meropenem 1 GM in Sodium Chloride 0.9% 100 ML IVPB ONE (14:30)
--- NOTE | 2018-05-05 15:57 | CP.PCM.CON ---
History of Present Illness - History of Present Illness History of Present Illness: dictated Past Patient History - Infectious Disease Hx of Infectious Diseases: None - Past Medical History & Family History Past Medical History?: Yes - Past Social History Smoking Status: Former Smoker - CARDIAC Hx Hypertension: Yes - PULMONARY Hx Respiratory Disorders: No - HEENT Hx HEENT Problems: No - RENAL Hx Chronic Kidney Disease: No - ENDOCRINE/METABOLIC Hx Endocrine Disorders: No - HEMATOLOGICAL/ONCOLOGICAL Hx Blood Disorders: No - INTEGUMENTARY Hx Dermatological Problems: No - MUSCULOSKELETAL/RHEUMATOLOGICAL Hx Musculoskeletal Disorders: No Other/Comment: sciatica - GASTROINTESTINAL Hx Gastrointestinal Disorders: No - GENITOURINARY/GYNECOLOGICAL Hx Genitourinary Disorders: No - PSYCHIATRIC Hx Depression: Yes Hx Substance Use: No - SURGICAL HISTORY Hx Appendectomy: Yes Hx Cholecystectomy: Yes - ANESTHESIA Hx Anesthesia: Yes Hx Anesthesia Reactions: No Meds Allergies/Adverse Reactions: Allergies Allergy/AdvReac Type Severity Reaction Status Date / Time No Known Allergies Allergy Verified 04/30/18 17:52 - Medications Medications: Current Medications Acetaminophen (Tylenol 325mg Tab) 650 mg PO Q4 PRN PRN Reason: Pain, Mild (1-3) Amlodipine Besylate (Norvasc) 5 mg PO DAILY [facility] Last Admin: 05/05/18 10:20 Dose: 5 mg Heparin Sodium (Porcine) (Heparin) 5,000 units SC Q8 [facility] Last Admin: 05/05/18 14:27 Dose: 5,000 units Hydromorphone HCl (Dilaudid) 0.5 mg IVP Q4H PRN PRN Reason: Pain, severe (8-10) Last Admin: 05/05/18 14:46 Dose: 0.5 mg Piperacillin Sod/Tazobactam Sod (Zosyn 3.375 Gm Iv Premix) 3.375 gm in 50 mls @ 100 mls/hr IVPB Q6H [facility]; Protocol Last Admin: 05/05/18 10:20 Dose: 100 mls/hr Metronidazole (Flagyl) 500 mg in 100 mls @ 100 mls/hr IVPB Q8H [facility]; Protocol Last Admin: 05/05/18 11:45 Dose: 100 mls/hr Potassium Chloride/Dextrose/Sod Cl (Potassium Chl 20 Meq In D5-1/2ns) 1,000 mls @ 125 mls/hr IV .Q8H [facility] Last Admin: 05/05/18 10:20 Dose: Not Given BUPIVACAINE 0.125%/0.9% NACL (Bupivacaine-Ns 0.125% On-Q Lien Searcher) 600 mls @ 7 mls/hr IJ ONCE ONE Stop: 05/09/18 00:42 Potassium Phosphate 15 mmole/ (Dextrose) 255 mls @ 42.5 mls/hr IVPB ONCE ONE Stop: 05/05/18 16:59 Last Admin: 05/05/18 12:45 Dose: 42.5 mls/hr Pantoprazole Sodium (Protonix Inj) 40 mg IVP Q12H [facility] Last Admin: 05/05/18 10:20 Dose: 40 mg Tramadol HCl (Ultram) 50 mg PO TID PRN PRN Reason: Pain, moderate (4-7) Results - Vital Signs Recent Vital Signs: Last Vital Signs Temp 98.6 F 05/05/18 08:00 Pulse 72 05/05/18 08:00 Resp 20 05/05/18 08:00 BP 162/89 H 05/05/18 08:00 Pulse Ox 95 05/05/18 08:00 - Labs Result Diagrams: 05/05/18 07:51 05/05/18 07:51 Labs: Laboratory Results - last 24 hr 05/05/18 05/05/18 07:51 07:51 WBC 17.2 H RBC 4.75 Hgb 14.0 Hct 42.6 MCV 89.8 MCH 29.4 MCHC 32.7 L RDW 13.5 Plt Count 369 MPV 9.4 Neut % (Auto) 82.2 H Lymph % (Auto) 8.0 L Dawes % (Auto) 9.5 Eos % (Auto) 0.1 Baso % (Auto) 0.2 Neut # (Auto) 14.2 H Lymph # (Auto) 1.4 Dawes # (Auto) 1.6 H Eos # (Auto) 0.0 Baso # (Auto) 0.0 Neutrophils % (Manual) 86 H Lymphocytes % (Manual) 5 L Monocytes % (Manual) 9 Platelet Estimate Normal RBC Morphology Normal Sodium 133 Potassium 3.7 Chloride 98 Carbon Dioxide 27 Anion Gap 11 BUN 7 Creatinine 0.5 L Est GFR ( Amer) > 60 Est GFR (Non-Af Amer) > 60 Random Glucose 175 H D Calcium 8.3 L Phosphorus 2.0 L Magnesium 1.9 Total Bilirubin 0.6 AST 28 ALT 25 Alkaline Phosphatase 75 Total Protein 5.9 L Albumin 3.3 L Globulin 2.6 Albumin/Globulin Ratio 1.2
--- NOTE | 2018-05-05 23:43 | CP.PCM.PN ---
<Parag García - Last Filed: 05/06/18 00:55> Subjective - Date & Time of Evaluation Date of Evaluation: 05/06/18 Time of Evaluation: 00:28 - Subjective Subjective: PGY-1 Medicine Progress Note for Dr. Lees Patient seen and examined at bedside. No acute overnight events reported. She reports continued crampy abdominal pain, but states that it is tolerable and nothing like the pain that she had on admission. Pt continues to ambulate and use the incentive spirometer. I instructed the pt to not empty her own ileostomy bag, and she states that she was only doing it because she was tired of waiting for RNs to come. Howver, she reports that she will no longer do it. She denies fever, chills, chest pain, sob, n/v/d, hematochezia, melena, bleeding from surgical sites. Objective - Vital Signs/Intake and Output Vital Signs (last 24 hours): Temp Pulse Resp BP Pulse Ox 99.1 F 104 H 20 136/84 94 L 05/05/18 15:00 05/05/18 15:00 05/05/18 15:00 05/05/18 15:00 05/05/18 15:00 Intake and Output: 05/05/18 05/06/18 18:59 06:59 Intake Total 825 Output Total 1115 630 Balance -1115 195 - Medications Medications: Current Medications Acetaminophen (Tylenol 325mg Tab) 650 mg PO Q4 PRN PRN Reason: Pain, Mild (1-3) Amlodipine Besylate (Norvasc) 5 mg PO DAILY [facility] Last Admin: 05/05/18 10:20 Dose: 5 mg Heparin Sodium (Porcine) (Heparin) 5,000 units SC Q8 [facility] Last Admin: 05/05/18 21:45 Dose: 5,000 units Hydromorphone HCl (Dilaudid) 0.5 mg IVP Q4H PRN PRN Reason: Pain, severe (8-10) Last Admin: 05/05/18 19:59 Dose: 0.5 mg Piperacillin Sod/Tazobactam Sod (Zosyn 3.375 Gm Iv Premix) 3.375 gm in 50 mls @ 100 mls/hr IVPB Q6H [facility]; Protocol Last Admin: 05/05/18 21:45 Dose: 100 mls/hr Metronidazole (Flagyl) 500 mg in 100 mls @ 100 mls/hr IVPB Q8H [facility]; Protocol Last Admin: 05/05/18 18:07 Dose: 100 mls/hr Potassium Chloride/Dextrose/Sod Cl (Potassium Chl 20 Meq In D5-1/2ns) 1,000 mls @ 125 mls/hr IV .Q8H [facility] Last Admin: 05/05/18 10:20 Dose: Not Given BUPIVACAINE 0.125%/0.9% NACL (Bupivacaine-Ns 0.125% On-Q Clinical Research Administrator) 600 mls @ 7 mls/hr IJ ONCE ONE Stop: 05/09/18 00:42 Pantoprazole Sodium (Protonix Inj) 40 mg IVP Q12H [facility] Last Admin: 05/05/18 21:45 Dose: 40 mg Tramadol HCl (Ultram) 50 mg PO TID PRN PRN Reason: Pain, moderate (4-7) - Labs Labs: 05/05/18 07:51 05/05/18 07:51 PT 15.5 SECONDS (9.7-12.2) H 05/04/18 07:04 INR 1.4 05/04/18 07:04 APTT 35 SECONDS (21-34) H 05/01/18 11:45 - Additional Findings Additional findings: Constitutional Appears: Non-toxic, No Acute Distress - Head Exam Head Exam: ATRAUMATIC, NORMAL INSPECTION, NORMOCEPHALIC - Eye Exam Eye Exam: EOMI, Normal appearance, PERRL Pupil Exam: NORMAL ACCOMODATION - ENT Exam ENT Exam: Mucous Membranes Moist, Normal Exam - Neck Exam Neck Exam: Full ROM, Normal Inspection - Respiratory Exam Respiratory Exam: Clear to Ausculation Bilateral, NORMAL BREATHING PATTERN. absent: Accessory Muscle Use, Rales, Rhonchi, Wheezes, Respiratory Distress, Stridor - Cardiovascular Exam Cardiovascular Exam: REGULAR RHYTHM, +S1, +S2, no tachycardia - GI/Abdominal Exam GI & Abdominal Exam: Guarding (voluntary in RUQ near surgical site), Soft, Tenderness (mild generalized TTP, worse in RUQ surgical site). absent: Firm, Rigid, Rebound Additional comments: dressing c/d/i, no signs of infection or bleeding pj drain in place with serous fluid draining onQ in place stoma pink, patent ostomy w/ bilious output - Extremities Exam Extremities Exam: Full ROM, Normal Capillary Refill, Normal Inspection - Neurological Exam Neurological Exam: Alert, Awake, Normal Gait, Oriented x3 - Psychiatric Exam Psychiatric exam: Normal Affect, Normal Mood - Skin Skin Exam: Dry, Intact, Normal Color, Warm Assessment and Plan - Assessment and Plan (Free Text) Assessment: 52 year old F with PMHx of HTN presenting with perforated acute diverticulitis POD#2, s/p sigmoidectomy w/ diverting loop ileostomy. Plan: Acute diverticulitis of sigmoid colon with perforation Phlegmon of adjacent left adnexal region Hx of Gastritis -Preoperative/intraoperative/postoperative management per General Surgery team (Dr. Ames) -Pt underwent an exploratory laparoscopy converted to exploratory laparotomy with resection of the sigmoid colon, primary colon anastomoses, diverticular bleed ileostomy with insertion of On-Q pump and local anesthesia catheters and Renee insertion. anesthesia had attempted NG tube but patient could not tolerate. -CT abdomen/pelvis (05/01): Acute uncomplicated sigmoid diverticulitis. Severe circumferential mural thickening in the gastric pylorus is nonspecific could be correlated to nonspecific gastritis. Mild hepatomegaly and fatty liver. -CT abdomen/pelvis (05/03): Results including prominent focal thickening of the sigmoid colon with associated diverticuli as well as prominent adjacent mesenteric fat stranding and fluid suggestive for acute diverticulitis intra- abdominal with adjacent foci of free air suggestive of a perforated acute diverticulitis. Posterior to the sigmoid colon is a suggestion of a developing collection 3.7 x 2.6 cm adjacent soft tissue calcification 8 mm. Free intraperitoneal air noted within the upper abdomen fatty infiltration of the liver -General Surgery (Dr. Ames) recs appreciated -pain meds adjusted, onQ replaced -continue monitoring BM, drain output -IV abx -GI recs (Dr. Mota) appreciated -outpatient referral for colonoscopy advised when medically stable to assess colon following reversal of ileostomy -Zosyn 3.375 g IV q6 (started on 04/29) -Flagyl 500 mg IVP q8 (started on 05/01) Leukocytosis -WBC uptrending, 17.2 (05/05) Will f/u with morning labs -BCx, urine Cx, stool cx: no growth -given 1 dose of meropenem -ID (Dr. Wong) consulted Hx of HTN -Norvasc 5 mg PO daily Obesity -A1C: 6.2 -TSH wnl -Lipid panel wnl Impaired glucose tolerance -A1C: 6.2 -Patient will need diet and exercise modification counseling to prevent over diabetes given obese habitus PPx, Diet, Disposition -DVT ppx: scds, heparin 5000 units sc q8 -GI ppx: protonix 40 mg daily -Diet: Liquid Diet -PT on case <Keya Lees V - Last Filed: 05/08/18 14:23> Objective - Vital Signs/Intake and Output Vital Signs (last 24 hours): Temp Pulse Resp BP Pulse Ox 97.8 F 75 20 150/96 H 97 05/08/18 08:00 05/08/18 08:00 05/08/18 08:00 05/08/18 08:00 05/08/18 08:00 Intake and Output: 05/08/18 05/08/18 06:59 18:59 Output Total 175 Balance -175 - Medications Medications: Current Medications Acetaminophen (Tylenol 325mg Tab) 650 mg PO Q4 PRN PRN Reason: Pain, Mild (1-3) Last Admin: 05/08/18 07:59 Dose: 650 mg Al Hydrox/Mg Hydrox/Simethicone (Maalox 30 Ml) 30 ml PO Q6 PRN PRN Reason: Indigestion / Heartburn Amlodipine Besylate (Norvasc) 5 mg PO DAILY [facility] Last Admin: 05/08/18 09:00 Dose: 5 mg Heparin Sodium (Porcine) (Heparin) 5,000 units SC Q8 [facility] Last Admin: 05/08/18 13:17 Dose: 5,000 units Hydromorphone HCl (Dilaudid) 0.5 mg IVP Q4H PRN PRN Reason: Pain, severe (8-10) Last Admin: 05/08/18 01:38 Dose: 0.5 mg Piperacillin Sod/Tazobactam Sod (Zosyn 3.375 Gm Iv Premix) 3.375 gm in 50 mls @ 100 mls/hr IVPB Q6H [facility]; Protocol Last Admin: 05/08/18 10:13 Dose: 100 mls/hr Metronidazole (Flagyl) 500 mg in 100 mls @ 100 mls/hr IVPB Q8H [facility]; Protocol Last Admin: 03/04/19 10:35 Dose: 100 mls/hr BUPIVACAINE 0.125%/0.9% NACL (Bupivacaine-Ns 0.125% On-Q Clinical Research Administrator) 600 mls @ 7 mls/hr IJ ONCE ONE Stop: 05/09/18 00:42 Ondansetron HCl (Zofran Inj) 4 mg IVP Q4H PRN PRN Reason: Nausea/Vomiting Last Admin: 05/08/18 13:17 Dose: 4 mg Oxycodone HCl (Oxycodone Immediate Release Tab) 5 mg PO Q4 PRN PRN Reason: Pain, moderate (4-7) Last Admin: 05/08/18 09:00 Dose: 5 mg Pantoprazole Sodium (Protonix Inj) 40 mg IVP Q12H [facility] Last Admin: 05/08/18 10:14 Dose: 40 mg - Labs Labs: 05/08/18 07:14 05/08/18 07:14 PT 15.5 SECONDS (9.7-12.2) H 05/04/18 07:04 INR 1.4 05/04/18 07:04 APTT 35 SECONDS (21-34) H 05/01/18 11:45 Attending/Attestation - Attestation I have personally seen and examined this patient.: Yes I have fully participated in the care of the patient.: Yes I have reviewed all pertinent clinical information, including history, physical exam and plan: Yes Notes (Text): This is a late computer entry for May 06, 2018. Patient seen, examined, case discussed with pesticide use medical coordinator. Patient is postoperative day 3 for surgery for perforated diverticulitis. Preoperative/intraoperative/postoperative management per surgery. I did review patient's pain regimen with her. Patient is concerned that nursing is not appropriately addressing her pain needs. Patient is on liquid diet. Patient white count did improve from 17 to 14. While on Zosyn and Flagyl ID has not changed antibiotic course. Blood cultures are negative times 24 hours. We will continue to monitor
[2018-05-06] MEDS: metroNIDAZOLE IV 500 mg/100 ml 500 MG/100 ML BAG IVPB SCH ×3 (03:10→19:03)
[2018-05-06] MEDS: Piperacill/Tazo 3.375gm in Dex 3.375 GM/50 ML BAG IVPB SCH ×4 (04:24→21:56)
--- NOTE | 2018-05-06 06:52 | CON ---
DATE: 05/05/2018 INFECTIOUS DISEASE CONSULT REQUESTED BY: Keya Lees DO HISTORY OF PRESENT ILLNESS: This patient is a 52-year-old female. She has a history of hypertension. She came in with 3 days of abdominal pain. She was not willing to tell me the story again. She says she has told it several times when she was feeling better. I was called in because of increased white count, fevers. When she was admitted, she had abdominal pain. This was on 05/01/2018 which was in left lower quadrant. No nausea, no vomiting, no diarrhea. Pain has been constant and was worsened, and she was getting bloating and cramping. At this point, she is status post surgery, and she has no fever at this time, however, her white count was going up. Hence, the PMD decided to call for ID consult. PAST MEDICAL HISTORY: Significant for hypertension. She was unsure of the medicine when she came in. PAST SURGICAL HISTORY: She also had surgery of lipoma removal, laparoscopic cholecystectomy, tubal ligation, foot surgery. ALLERGIES: SHE IS NOT ALLERGIC TO ANY MEDICINE. FAMILY HISTORY: No family history. SOCIAL HISTORY: Negative for smoking or drinking. She occasionally uses alcohol and uses marijuana recreationally and for her insomnia and anxiety. REVIEW OF SYSTEMS: Today, she denied any fever, chills. She said she ambulates. She got some physical therapy. She is trying to use the incentive spirometry; and denies any ears, nose, throat problems. Denies any chest pain. No shortness of breath. No cough. Does have abdominal pain that she says, today she was told how to take care of her colostomy. She has RAMANA drain, she showed me. She denies any urinary symptoms. Denies any diarrhea. Has not had a BM yet and denies any joint pains. No neurological issues and no endocrine problems. No chronic kidney disease. MEDICATIONS: She is on Tylenol, Norvasc, bupivacaine, heparin, Dilaudid, Flagyl, Protonix and Zosyn. Potassium chloride was not given, and she is on Ultram for the pain. PHYSICAL EXAMINATION: VITAL SIGNS: On examination, I find her temperature is 99.1 at this time, heart rate of 104, blood pressure 136/84, respirations are 20, saturations 94% that is on room air. Her BMI is 30.8 and she is 185 pounds. HEENT: Head is atraumatic, normocephalic. Pupils are reacting to light. No pallor present. Tongue is moist. NECK: Supple. LUNGS: Clear. No crackles or rales present. HEART: S1, S2. Regular. No murmurs appreciated. ABDOMEN: Has RAMANA drain and has multiple wounds with Steri-Strips and a midline wound with dressings. EXTREMITIES: Have no edema, clubbing, or cyanosis. LABORATORY DATA: Labs are noted. Labs show white count is 17.2 today, hemoglobin is 14, hematocrit 42.6, platelet count is 365, and neutrophils are 82.2. CMP is unremarkable except for BUN is 7, creatinine 0.5, her glucose was 175 but she had 84 before, and serology has been done. Influenza was negative. Her body fluid, leukocytes, stool are positive on 05/02/2018, and UA has been negative. So at this point, the blood cultures which were done on 05/01/2018 were negative. Urine culture is negative. Stool culture is negative, ova and parasite final. The CAT scan was done on 05/02/2018 and also on 04/30/2018. On 05/02/2018, the CAT scan again identified prominent focal thickening of sigmoid colon with associated diverticula, has prominent adjacent mesenteric fat stranding and fluid suggestive for acute diverticulitis, etiology not excluded. There has been an interval development of adjacent foci of free air suggesting perforated acute diverticulitis, and posterior to the sigmoid, there is a suggestion of a developing phlegmon collection measuring up to 3.27 x 2.6, adjacent soft tissue calcification measures 8 mm and few short paraaortic and inguinal lymph nodes, few small mesenteric lymph nodes, degenerative changes in the spine, sclerosis of the bilateral sacroiliac joints. PLAN: At this time, this patient is postoperative status post perforated diverticula, and she has had a diverting colostomy with surgery now and her white count is little elevated. There was a chest x-ray which was chest x-ray and she has been using incentive spirometry, and she has no history of cough at this time. White count is slightly elevated from yesterday. We will monitor it in the morning, and at this time, I would continue Zosyn and Flagyl ,and I will follow her and see if there is a need to change the antibiotic or to do further testing. We will follow. Jordan Wong MD
--- NOTE | 2018-05-06 07:42 | CP.PCM.PN ---
<August Woodson - Last Filed: 05/06/18 07:43> Subjective - Date & Time of Evaluation Date of Evaluation: 05/06/18 Time of Evaluation: 07:40 - Subjective Subjective: SURGERY NOTE FOR DR. AMES 52F seen and examined at bedside. Patient states pain improved, tolerating liquid diet, she is having output out her ileostomy. Ambulating. Objective - Vital Signs/Intake and Output Vital Signs (last 24 hours): Temp Pulse Resp BP Pulse Ox 99.3 F 91 H 16 122/81 98 05/05/18 23:00 05/05/18 23:00 05/05/18 23:00 05/05/18 23:00 05/05/18 23:00 Intake and Output: 05/06/18 05/06/18 06:59 18:59 Intake Total 975 Output Total 945 Balance 30 - Medications Medications: Current Medications Acetaminophen (Tylenol 325mg Tab) 650 mg PO Q4 PRN PRN Reason: Pain, Mild (1-3) Amlodipine Besylate (Norvasc) 5 mg PO DAILY [facility] Last Admin: 05/05/18 10:20 Dose: 5 mg Heparin Sodium (Porcine) (Heparin) 5,000 units SC Q8 [facility] Last Admin: 05/06/18 05:27 Dose: 5,000 units Hydromorphone HCl (Dilaudid) 0.5 mg IVP Q4H PRN PRN Reason: Pain, severe (8-10) Last Admin: 05/05/18 23:55 Dose: 0.5 mg Piperacillin Sod/Tazobactam Sod (Zosyn 3.375 Gm Iv Premix) 3.375 gm in 50 mls @ 100 mls/hr IVPB Q6H [facility]; Protocol Last Admin: 05/06/18 04:24 Dose: 100 mls/hr Metronidazole (Flagyl) 500 mg in 100 mls @ 100 mls/hr IVPB Q8H [facility]; Protocol Last Admin: 05/06/18 03:10 Dose: 100 mls/hr Potassium Chloride/Dextrose/Sod Cl (Potassium Chl 20 Meq In D5-1/2ns) 1,000 mls @ 125 mls/hr IV .Q8H [facility] Last Admin: 05/05/18 10:20 Dose: Not Given BUPIVACAINE 0.125%/0.9% NACL (Bupivacaine-Ns 0.125% On-Q Business Services Manager) 600 mls @ 7 mls/hr IJ ONCE ONE Stop: 05/09/18 00:42 Pantoprazole Sodium (Protonix Inj) 40 mg IVP Q12H [facility] Last Admin: 05/05/18 21:45 Dose: 40 mg Tramadol HCl (Ultram) 50 mg PO TID PRN PRN Reason: Pain, moderate (4-7) - Labs Labs: 05/05/18 07:51 05/05/18 07:51 PT 15.5 SECONDS (9.7-12.2) H 05/04/18 07:04 INR 1.4 05/04/18 07:04 APTT 35 SECONDS (21-34) H 05/01/18 11:45 - Constitutional Appears: Non-toxic, No Acute Distress - Respiratory Exam Respiratory Exam: Clear to Ausculation Bilateral, NORMAL BREATHING PATTERN - Cardiovascular Exam Cardiovascular Exam: REGULAR RHYTHM, +S1, +S2 - GI/Abdominal Exam GI & Abdominal Exam: Soft. absent: Distended, Firm, Guarding, Rigid, Tenderness, Rebound Additional comments: dressings CDI Drew serosang OnQ ball in place - Neurological Exam Neurological Exam: Alert, Awake - Skin Skin Exam: Dry, Intact, Normal Color, Warm Assessment and Plan - Assessment and Plan (Free Text) Assessment: 52 y/o F w/ perforated acute diverticulitis POD#3 s/p sigmoidectomy w/ diverting loop ileostomy. Plan: - monitor pain - continue diet - ambulate - discuss DC plans - monitor drew output Further recs discuss with Dr. Hui Woodson, PGY3 <Dank Ames B - Last Filed: 05/07/18 21:35> Objective - Vital Signs/Intake and Output Vital Signs (last 24 hours): Temp Pulse Resp BP Pulse Ox 98.3 F 65 20 137/71 98 05/07/18 15:00 05/07/18 15:00 05/07/18 15:00 05/07/18 15:00 05/07/18 15:00 Intake and Output: 05/07/18 05/08/18 18:59 06:59 Output Total 270 Balance -270 - Medications Medications: Current Medications Acetaminophen (Tylenol 325mg Tab) 650 mg PO Q4 PRN PRN Reason: Pain, Mild (1-3) Al Hydrox/Mg Hydrox/Simethicone (Maalox 30 Ml) 30 ml PO Q6 PRN PRN Reason: Indigestion / Heartburn Amlodipine Besylate (Norvasc) 5 mg PO DAILY [facility] Last Admin: 05/07/18 09:51 Dose: 5 mg Heparin Sodium (Porcine) (Heparin) 5,000 units SC Q8 [facility] Last Admin: 05/07/18 13:15 Dose: 5,000 units Hydromorphone HCl (Dilaudid) 0.5 mg IVP Q4H PRN PRN Reason: Pain, severe (8-10) Last Admin: 05/07/18 11:57 Dose: 0.5 mg Piperacillin Sod/Tazobactam Sod (Zosyn 3.375 Gm Iv Premix) 3.375 gm in 50 mls @ 100 mls/hr IVPB Q6H [facility]; Protocol Last Admin: 05/07/18 16:13 Dose: 100 mls/hr Metronidazole (Flagyl) 500 mg in 100 mls @ 100 mls/hr IVPB Q8H [facility]; Protocol Last Admin: 05/07/18 19:55 Dose: 100 mls/hr BUPIVACAINE 0.125%/0.9% NACL (Bupivacaine-Ns 0.125% On-Q Business Services Manager) 600 mls @ 7 mls/hr IJ ONCE ONE Stop: 05/09/18 00:42 Ondansetron HCl (Zofran Inj) 4 mg IVP Q4H PRN PRN Reason: Nausea/Vomiting Last Admin: 05/07/18 04:29 Dose: 4 mg Oxycodone HCl (Oxycodone Immediate Release Tab) 5 mg PO Q4 PRN PRN Reason: Pain, moderate (4-7) Last Admin: 05/07/18 16:12 Dose: 5 mg Pantoprazole Sodium (Protonix Inj) 40 mg IVP Q12H [facility] Last Admin: 05/07/18 09:52 Dose: 40 mg - Labs Labs: 05/07/18 07:31 05/07/18 07:31 PT 15.5 SECONDS (9.7-12.2) H 05/04/18 07:04 INR 1.4 05/04/18 07:04 APTT 35 SECONDS (21-34) H 05/01/18 11:45 Attending/Attestation - Attestation I have fully participated in the care of the patient.: Yes I have reviewed all pertinent clinical information, including history, physical exam and plan: Yes Notes (Text): Pt with ileus Clear liquid only C.w IV antibiotics OOB to walk Plan d.w pt in detail
[2018-05-06 08:44] LABS: BASO # 0.1 K/uL (0.0-0.2); BASO % 0.8 % (0.0-2.0); EOS # 0.4 K/uL (0.0-0.7); EOS % 2.8 % (0.0-4.0); HEMOGLOBIN 13.4 g/dL (11.0-16.0); MEAN CELL VOLUME 90.1 fL (81.0-99.0); MEAN CORPUSCULAR HEMOGLOBIN 29.1 pg (27.0-31.0); MEAN CORPUSCULAR HGB CONC 32.3 g/dL (33.0-37.0); MEAN PLATELET VOLUME 9.2 fL (7.2-11.7); MONO # 1.4 K/uL (0.0-0.8); MONO % 10.1 % (0.0-10.0); NEUT # 10.4 K/uL (1.8-7.0); NEUT % 72.3 % (50.0-75.0); RBC 4.59 Mil/uL (3.80-5.20); RED CELL DISTRIBUTION WIDTH 13.7 % (11.5-14.5); WHITE BLOOD COUNT 14.3 K/uL (4.8-10.8)
[2018-05-06] MEDS: HYDROmorphone 0.5 mg/0.5 ml ISec IVP PRN ×3 (08:50→20:38)
[2018-05-06 09:12] LABS: ALB/GLOB RATIO 1.2 (1.0-2.1); ALBUMIN 3.3 g/dL (3.5-5.0); ALT/SGPT 23 U/L (9-52); AST/SGOT 29 U/L (14-36); BLOOD UREA NITROGEN 9 mg/dL (7-17); CALCIUM 8.3 mg/dl (8.6-10.4); GFR NON-AFRICAN AMERICAN > 60
--- NOTE | 2018-05-06 19:32 | CP.PCM.PN ---
<Parag García - Last Filed: 05/07/18 04:36> Subjective - Date & Time of Evaluation Date of Evaluation: 05/07/18 Time of Evaluation: 04:36 - Subjective Subjective: PGY-1 Medicine Progress Note for Dr. Lees Patient seen and examined at bedside. Pt reports that she continues to have abdominal pain. Had one episode of nonbilious, nonbloody vomiting. She states that the pain is crampy, and feels like "bubbles." I evaluated the pt after recieving Dilaudid, and the nausea she is experiencing may be due to the dialudid. I informed RN to give Zofran with Dilaudid in the future. Pt continues to ambulate and use the incentive spirometer. She denies fever, chills, chest pain, sob, hematochezia, melena, bleeding from surgical sites. She did not eat much last night. Ostomy bag was changed due to leakage. Objective - Vital Signs/Intake and Output Vital Signs (last 24 hours): Temp Pulse Resp BP Pulse Ox 98.4 F 74 20 130/85 97 05/06/18 16:11 05/06/18 16:11 05/06/18 16:11 05/06/18 16:11 05/06/18 16:11 Intake and Output: 05/06/18 05/07/18 18:59 06:59 Output Total 75 Balance -75 - Medications Medications: Current Medications Acetaminophen (Tylenol 325mg Tab) 650 mg PO Q4 PRN PRN Reason: Pain, Mild (1-3) Amlodipine Besylate (Norvasc) 5 mg PO DAILY [facility] Last Admin: 05/06/18 10:10 Dose: 5 mg Heparin Sodium (Porcine) (Heparin) 5,000 units SC Q8 [facility] Last Admin: 05/06/18 14:11 Dose: 5,000 units Hydromorphone HCl (Dilaudid) 0.5 mg IVP Q4H PRN PRN Reason: Pain, severe (8-10) Last Admin: 05/06/18 16:34 Dose: 0.5 mg Piperacillin Sod/Tazobactam Sod (Zosyn 3.375 Gm Iv Premix) 3.375 gm in 50 mls @ 100 mls/hr IVPB Q6H [facility]; Protocol Last Admin: 05/06/18 16:35 Dose: 100 mls/hr Metronidazole (Flagyl) 500 mg in 100 mls @ 100 mls/hr IVPB Q8H [facility]; Protocol Last Admin: 05/06/18 19:03 Dose: 100 mls/hr Potassium Chloride/Dextrose/Sod Cl (Potassium Chl 20 Meq In D5-1/2ns) 1,000 mls @ 125 mls/hr IV .Q8H [facility] Last Admin: 05/05/18 10:20 Dose: Not Given BUPIVACAINE 0.125%/0.9% NACL (Bupivacaine-Ns 0.125% On-Q Show Jumping Instructor) 600 mls @ 7 mls/hr IJ ONCE ONE Stop: 05/09/18 00:42 Ondansetron HCl (Zofran Inj) 4 mg IVP Q4H PRN PRN Reason: Nausea/Vomiting Last Admin: 05/06/18 17:30 Dose: 4 mg Pantoprazole Sodium (Protonix Inj) 40 mg IVP Q12H [facility] Last Admin: 05/06/18 10:10 Dose: 40 mg Tramadol HCl (Ultram) 50 mg PO TID PRN PRN Reason: Pain, moderate (4-7) Last Admin: 05/06/18 14:11 Dose: 50 mg - Labs Labs: 05/06/18 08:31 05/06/18 08:31 PT 15.5 SECONDS (9.7-12.2) H 05/04/18 07:04 INR 1.4 05/04/18 07:04 APTT 35 SECONDS (21-34) H 05/01/18 11:45 - Additional Findings Additional findings: Constitutional Appears: Non-toxic, No Acute Distress - Head Exam Head Exam: ATRAUMATIC, NORMAL INSPECTION, NORMOCEPHALIC - Eye Exam Eye Exam: EOMI, Normal appearance, PERRL Pupil Exam: NORMAL ACCOMODATION - ENT Exam ENT Exam: Mucous Membranes Moist, Normal Exam - Neck Exam Neck Exam: Full ROM, Normal Inspection - Respiratory Exam Respiratory Exam: Clear to Ausculation Bilateral, NORMAL BREATHING PATTERN. absent: Accessory Muscle Use, Rales, Rhonchi, Wheezes, Respiratory Distress, Stridor - Cardiovascular Exam Cardiovascular Exam: REGULAR RHYTHM, +S1, +S2, no tachycardia - GI/Abdominal Exam GI & Abdominal Exam: Soft, Tenderness (minimal diffuse tenderness). absent: Firm, Rigid, Rebound Additional comments: dressing c/d/i, no signs of infection or bleeding pj drain in place with serous fluid draining onQ in place stoma pink, patent ostomy w/ bilious output; nonbloody - Extremities Exam Extremities Exam: Full ROM, Normal Capillary Refill, Normal Inspection - Neurological Exam Neurological Exam: Alert, Awake, Normal Gait, Oriented x3 - Psychiatric Exam Psychiatric exam: Normal Affect, Normal Mood - Skin Skin Exam: Dry, Intact, Normal Color, Warm Assessment and Plan - Assessment and Plan (Free Text) Assessment: 52 year old F with PMHx of HTN presenting with perforated acute diverticulitis POD#2, s/p sigmoidectomy w/ diverting loop ileostomy. Plan: Acute diverticulitis of sigmoid colon with perforation Phlegmon of adjacent left adnexal region Hx of Gastritis -Preoperative/intraoperative/postoperative management per General Surgery team (Dr. Ames) -Pt underwent an exploratory laparoscopy converted to exploratory laparotomy with resection of the sigmoid colon, primary colon anastomoses, diverticular bleed ileostomy with insertion of On-Q pump and local anesthesia catheters and Renee insertion. anesthesia had attempted NG tube but patient could not tolerate. -CT abdomen/pelvis (05/01): Acute uncomplicated sigmoid diverticulitis. Severe circumferential mural thickening in the gastric pylorus is nonspecific could be correlated to nonspecific gastritis. Mild hepatomegaly and fatty liver. -CT abdomen/pelvis (05/03): Results including prominent focal thickening of the sigmoid colon with associated diverticuli as well as prominent adjacent mesenteric fat stranding and fluid suggestive for acute diverticulitis intra- abdominal with adjacent foci of free air suggestive of a perforated acute diverticulitis. Posterior to the sigmoid colon is a suggestion of a developing collection 3.7 x 2.6 cm adjacent soft tissue calcification 8 mm. Free intraperitoneal air noted within the upper abdomen fatty infiltration of the liver -General Surgery (Dr. Ames) recs appreciated -onQ is functioning, but her pain may be refractory Dilaudid 0.5 mg IVP q4h prn with zofran Tramadol 50 mg PO TID PRN -continue monitoring BM, drain output -IV abx -GI recs (Dr. Mota) appreciated -outpatient referral for colonoscopy advised when medically stable to assess colon following reversal of ileostomy -Zosyn 3.375 g IV q6 (started on 04/29) -Flagyl 500 mg IVP q8 (started on 05/01) Leukocytosis -WBC uptrending, 17.2 (05/05) Will f/u with morning labs -BCx, urine Cx, stool cx: no growth -given 1 dose of meropenem -ID (Dr. Wong) consulted Hx of HTN -Norvasc 5 mg PO daily Obesity -A1C: 6.2 -TSH wnl -Lipid panel wnl Impaired glucose tolerance -A1C: 6.2 -Patient will need diet and exercise modification counseling to prevent over diabetes given obese habitus PPx, Diet, Disposition -DVT ppx: scds, heparin 5000 units sc q8 -GI ppx: protonix 40 mg daily -Diet: Liquid Diet Consider adding stool softener as pt has increased use of Dilaudid at this time -PT on case <Keya Lees V - Last Filed: 05/07/18 20:30> Objective - Vital Signs/Intake and Output Vital Signs (last 24 hours): Temp Pulse Resp BP Pulse Ox 98.3 F 65 20 137/71 98 05/07/18 15:00 05/07/18 15:00 05/07/18 15:00 05/07/18 15:00 05/07/18 15:00 Intake and Output: 05/07/18 05/08/18 18:59 06:59 Output Total 270 Balance -270 - Medications Medications: Current Medications Acetaminophen (Tylenol 325mg Tab) 650 mg PO Q4 PRN PRN Reason: Pain, Mild (1-3) Al Hydrox/Mg Hydrox/Simethicone (Maalox 30 Ml) 30 ml PO Q6 PRN PRN Reason: Indigestion / Heartburn Amlodipine Besylate (Norvasc) 5 mg PO DAILY [facility] Last Admin: 05/07/18 09:51 Dose: 5 mg Heparin Sodium (Porcine) (Heparin) 5,000 units SC Q8 [facility] Last Admin: 05/07/18 13:15 Dose: 5,000 units Hydromorphone HCl (Dilaudid) 0.5 mg IVP Q4H PRN PRN Reason: Pain, severe (8-10) Last Admin: 05/07/18 11:57 Dose: 0.5 mg Piperacillin Sod/Tazobactam Sod (Zosyn 3.375 Gm Iv Premix) 3.375 gm in 50 mls @ 100 mls/hr IVPB Q6H [facility]; Protocol Last Admin: 05/07/18 16:13 Dose: 100 mls/hr Metronidazole (Flagyl) 500 mg in 100 mls @ 100 mls/hr IVPB Q8H [facility]; Protocol Last Admin: 05/07/18 11:51 Dose: 100 mls/hr BUPIVACAINE 0.125%/0.9% NACL (Bupivacaine-Ns 0.125% On-Q Show Jumping Instructor) 600 mls @ 7 mls/hr IJ ONCE ONE Stop: 05/09/18 00:42 Ondansetron HCl (Zofran Inj) 4 mg IVP Q4H PRN PRN Reason: Nausea/Vomiting Last Admin: 05/07/18 04:29 Dose: 4 mg Oxycodone HCl (Oxycodone Immediate Release Tab) 5 mg PO Q4 PRN PRN Reason: Pain, moderate (4-7) Last Admin: 05/07/18 16:12 Dose: 5 mg Pantoprazole Sodium (Protonix Inj) 40 mg IVP Q12H [facility] Last Admin: 05/07/18 09:52 Dose: 40 mg - Labs Labs: 05/07/18 07:31 05/07/18 07:31 PT 15.5 SECONDS (9.7-12.2) H 05/04/18 07:04 INR 1.4 05/04/18 07:04 APTT 35 SECONDS (21-34) H 05/01/18 11:45 Attending/Attestation - Attestation I have personally seen and examined this patient.: Yes I have fully participated in the care of the patient.: Yes I have reviewed all pertinent clinical information, including history, physical exam and plan: Yes Notes (Text): Patient seen, examined, and case discussed with medical aide. Patient seen this morning. Patient is on liquid diet. Surgery has changed pain regiment: tylenol for mild, oxycodone moderate, and dilaudid for severe pain. Patient is concerned she is not getting her pain medication at the time she needs it. Her pain this morning at breakfast time is about 1/10 on pain scale and she is concerned that when she starts her tea and the juices that it will go higher and she will be suffering without her medications. We had quite a discussion and I spoke with her nurse, keyona as well who is familiar with patient during the course of her hospitalization. We talked about that her pain is not treated as "future pain" given she describes as 1 present and the nursing cant given her dilaudid when she does not make the pain scale; and I did speak with her there is a component of fear that is playing into it. I do not get the impression she is pain seeking; she has had major surgery which warrants pain me dication. Her Q pain medication placed by surgery was discontinued. Her white count is about the same; afebrile, and repeat cultures are negative. Patient is eager and wants to be active but does not want to be limited by pain. d/c toradol patient has a history of gastritis. I had prn maalox for indigestion as well. We will continue IV Abx to cover for severe diverticulitis. Postoperatoive management per surgery. ostomy is clean dry intact so is the pj drain sight. bowel sounds present; tenderness is improving on my exam.
[2018-05-07] MEDS: HYDROmorphone 0.5 mg/0.5 ml ISec IVP PRN ×4 (00:21→21:41)
[2018-05-07 01:09] VITALS: RESP 20
[2018-05-07] MEDS: metroNIDAZOLE IV 500 mg/100 ml 500 MG/100 ML BAG IVPB SCH ×3 (04:26→19:55)
[2018-05-07] MEDS: Piperacill/Tazo 3.375gm in Dex 3.375 GM/50 ML BAG IVPB SCH ×4 (04:34→21:39)
--- NOTE | 2018-05-07 07:17 | CP.PCM.PN ---
<Juliana Sorto - Last Filed: 05/07/18 07:13> Subjective - Date & Time of Evaluation Date of Evaluation: 05/07/18 Time of Evaluation: 07:13 - Subjective Subjective: General surgery progress note for Dr. Ames-Juliana Sorto, PGY-2 Pt seen/examined at bedside Pt reports pain controlled with Dilaudid - does not feel that OnQ system is alleviating her pain. Reports some nausea, especially with PO intake of soups and hot liquids. Denies emesis, fever, chills, CP, SOB, other complaints. Objective - Vital Signs/Intake and Output Vital Signs (last 24 hours): Temp Pulse Resp BP Pulse Ox 98.1 F 63 20 157/85 H 96 05/07/18 00:00 05/07/18 00:00 05/07/18 00:00 05/07/18 00:00 05/07/18 00:00 Intake and Output: 05/07/18 05/07/18 06:59 18:59 Output Total 720 Balance -720 - Medications Medications: Current Medications Acetaminophen (Tylenol 325mg Tab) 650 mg PO Q4 PRN PRN Reason: Pain, Mild (1-3) Amlodipine Besylate (Norvasc) 5 mg PO DAILY [facility] Last Admin: 05/06/18 10:10 Dose: 5 mg Heparin Sodium (Porcine) (Heparin) 5,000 units SC Q8 [facility] Last Admin: 05/07/18 06:04 Dose: 5,000 units Hydromorphone HCl (Dilaudid) 0.5 mg IVP Q4H PRN PRN Reason: Pain, severe (8-10) Last Admin: 05/07/18 04:24 Dose: 0.5 mg Piperacillin Sod/Tazobactam Sod (Zosyn 3.375 Gm Iv Premix) 3.375 gm in 50 mls @ 100 mls/hr IVPB Q6H [facility]; Protocol Last Admin: 05/07/18 04:34 Dose: 100 mls/hr Metronidazole (Flagyl) 500 mg in 100 mls @ 100 mls/hr IVPB Q8H [facility]; Protocol Last Admin: 05/07/18 04:26 Dose: 100 mls/hr Potassium Chloride/Dextrose/Sod Cl (Potassium Chl 20 Meq In D5-1/2ns) 1,000 mls @ 125 mls/hr IV .Q8H [facility] Last Admin: 05/05/18 10:20 Dose: Not Given BUPIVACAINE 0.125%/0.9% NACL (Bupivacaine-Ns 0.125% On-Q Neurosurgical Nurse) 600 mls @ 7 mls/hr IJ ONCE ONE Stop: 05/09/18 00:42 Ketorolac Tromethamine (Toradol) 30 mg IVP Q6 [facility] Ondansetron HCl (Zofran Inj) 4 mg IVP Q4H PRN PRN Reason: Nausea/Vomiting Last Admin: 05/07/18 04:29 Dose: 4 mg Oxycodone HCl (Oxycodone Immediate Release Tab) 5 mg PO Q4 PRN PRN Reason: Pain, moderate (4-7) Pantoprazole Sodium (Protonix Inj) 40 mg IVP Q12H [facility] Last Admin: 05/06/18 21:56 Dose: 40 mg - Labs Labs: 05/06/18 08:31 05/06/18 08:31 PT 15.5 SECONDS (9.7-12.2) H 05/04/18 07:04 INR 1.4 05/04/18 07:04 APTT 35 SECONDS (21-34) H 05/01/18 11:45 - Constitutional Appears: Non-toxic, No Acute Distress - Head Exam Head Exam: ATRAUMATIC, NORMAL INSPECTION, NORMOCEPHALIC - Eye Exam Eye Exam: EOMI, Normal appearance - ENT Exam ENT Exam: Mucous Membranes Moist, Normal Exam - Neck Exam Neck Exam: Full ROM - Respiratory Exam Respiratory Exam: NORMAL BREATHING PATTERN - Cardiovascular Exam Cardiovascular Exam: REGULAR RHYTHM, +S1, +S2 - GI/Abdominal Exam GI & Abdominal Exam: Soft, Tenderness (LLQ, along incision sites). absent: Distended (obese), Firm, Guarding, Rebound Additional comments: OnQ system affixed to epigastric area, midline dressing in place- inferior aspect with Sanguinous strike through, other surgical sites with dressing in place- clean/dry/intact - Extremities Exam Extremities Exam: Normal Inspection - Neurological Exam Neurological Exam: Alert, Awake, CN II-XII Intact, Oriented x3 - Psychiatric Exam Psychiatric exam: Normal Affect, Normal Mood - Skin Skin Exam: Dry, Intact, Normal Color, Warm Assessment and Plan - Assessment and Plan (Free Text) Assessment: 52F w/diverticulitis s/p lap converted to open sigmoidectomy w/loop ileostomy POD#4 Plan: monitor ostomy output Continue CLD Pre-medicate with Zofran prior to meals Continue pain control Plan to remove OnQ system today OOBTC Ambulate Encourage IS use Monitor pj output Further care as per primary team Will PIPPA Ames <Dank Ames - Last Filed: 05/07/18 21:36> Objective - Vital Signs/Intake and Output Vital Signs (last 24 hours): Temp Pulse Resp BP Pulse Ox 98.3 F 65 20 137/71 98 05/07/18 15:00 05/07/18 15:00 05/07/18 15:00 05/07/18 15:00 05/07/18 15:00 Intake and Output: 05/07/18 05/08/18 18:59 06:59 Output Total 270 Balance -270 - Medications Medications: Current Medications Acetaminophen (Tylenol 325mg Tab) 650 mg PO Q4 PRN PRN Reason: Pain, Mild (1-3) Al Hydrox/Mg Hydrox/Simethicone (Maalox 30 Ml) 30 ml PO Q6 PRN PRN Reason: Indigestion / Heartburn Amlodipine Besylate (Norvasc) 5 mg PO DAILY [facility] Last Admin: 05/07/18 09:51 Dose: 5 mg Heparin Sodium (Porcine) (Heparin) 5,000 units SC Q8 [facility] Last Admin: 05/07/18 13:15 Dose: 5,000 units Hydromorphone HCl (Dilaudid) 0.5 mg IVP Q4H PRN PRN Reason: Pain, severe (8-10) Last Admin: 05/07/18 11:57 Dose: 0.5 mg Piperacillin Sod/Tazobactam Sod (Zosyn 3.375 Gm Iv Premix) 3.375 gm in 50 mls @ 100 mls/hr IVPB Q6H [facility]; Protocol Last Admin: 05/07/18 16:13 Dose: 100 mls/hr Metronidazole (Flagyl) 500 mg in 100 mls @ 100 mls/hr IVPB Q8H [facility]; Protocol Last Admin: 05/07/18 19:55 Dose: 100 mls/hr BUPIVACAINE 0.125%/0.9% NACL (Bupivacaine-Ns 0.125% On-Q Neurosurgical Nurse) 600 mls @ 7 mls/hr IJ ONCE ONE Stop: 05/09/18 00:42 Ondansetron HCl (Zofran Inj) 4 mg IVP Q4H PRN PRN Reason: Nausea/Vomiting Last Admin: 05/07/18 04:29 Dose: 4 mg Oxycodone HCl (Oxycodone Immediate Release Tab) 5 mg PO Q4 PRN PRN Reason: Pain, moderate (4-7) Last Admin: 05/07/18 16:12 Dose: 5 mg Pantoprazole Sodium (Protonix Inj) 40 mg IVP Q12H [facility] Last Admin: 05/07/18 09:52 Dose: 40 mg - Labs Labs: 05/07/18 07:31 05/07/18 07:31 PT 15.5 SECONDS (9.7-12.2) H 05/04/18 07:04 INR 1.4 05/04/18 07:04 APTT 35 SECONDS (21-34) H 05/01/18 11:45 Attending/Attestation - Attestation I have personally seen and examined this patient.: Yes I have fully participated in the care of the patient.: Yes I have reviewed all pertinent clinical information, including history, physical exam and plan: Yes Notes (Text): Pt was seen and examined at bedside Agree with above note and assessment Pt with ileus, improving Liquid diet only C.w IV antibiotics DVT prophylaxis Plan d.w pt in detail Risk and benefit explained in detail.
[2018-05-07 07:37] LABS: BASO # 0.1 K/uL (0.0-0.2); BASO % 0.4 % (0.0-2.0); EOS # 0.4 K/uL (0.0-0.7); EOS % 2.5 % (0.0-4.0); HEMOGLOBIN 12.9 g/dL (11.0-16.0); LYMPH # 2.4 K/uL (1.0-4.3); LYMPH % 16.1 % (20.0-40.0); MEAN CORPUSCULAR HGB CONC 32.3 g/dL (33.0-37.0); MEAN PLATELET VOLUME 9.1 fL (7.2-11.7); MONO # 1.6 K/uL (0.0-0.8); MONO % 10.6 % (0.0-10.0); NEUT # 10.4 K/uL (1.8-7.0); NEUT % 70.4 % (50.0-75.0); NRBC % 0.1 % (0.0-2.0); RBC 4.43 Mil/uL (3.80-5.20); RED CELL DISTRIBUTION WIDTH 13.4 % (11.5-14.5); WHITE BLOOD COUNT 14.7 K/uL (4.8-10.8)
[2018-05-07 07:53] LABS: ALB/GLOB RATIO 1.2 (1.0-2.1); ALBUMIN 3.2 g/dL (3.5-5.0); ALT/SGPT 26 U/L (9-52); AST/SGOT 17 U/L (14-36); BLOOD UREA NITROGEN 10 mg/dL (7-17); CALCIUM 8.3 mg/dl (8.6-10.4); GFR NON-AFRICAN AMERICAN > 60
--- NOTE | 2018-05-07 08:35 | CARD ---
APPROVED REPORT Date of service: 05/03/2018 EKG Measurement Heart [id number] <Conclusion> Normal sinus rhythm Normal ECG
[2018-05-07] MEDS ORDERED: Aluminum Hydroxide/Magnesium Hydroxide Susp (30 mL) PO PRN (09:30)
[2018-05-07] MEDS: oxyCODONE 5 mg Immediate Release Tab PO PRN ×2 (09:51→16:12)
[2018-05-08] MEDS: HYDROmorphone 0.5 mg/0.5 ml ISec IVP PRN ×3 (01:38→19:08)
[2018-05-08] MEDS: metroNIDAZOLE IV 500 mg/100 ml 500 MG/100 ML BAG IVPB SCH ×3 (03:00→18:14)
[2018-05-08] MEDS: Piperacill/Tazo 3.375gm in Dex 3.375 GM/50 ML BAG IVPB SCH ×4 (03:58→22:04)
--- NOTE | 2018-05-08 07:27 | CP.PCM.PN ---
<Jada Morales - Last Filed: 05/08/18 19:16> Subjective - Date & Time of Evaluation Date of Evaluation: 05/08/18 Time of Evaluation: 07:27 - Subjective Subjective: Progress Note for Hospitalist service Patient seen and examined at bedside. Pain currently controlled, since she received pain medication prior to evaluation. She has been ambulating and states she has been using the incentive spirometer. She denies fevers, chills, chest pain, shortness of breath, bleeding from sites, vomiting, dysuria, leg pain or swelling. Objective - Vital Signs/Intake and Output Vital Signs (last 24 hours): Temp Pulse Resp BP Pulse Ox 98.4 F 81 20 127/76 97 05/07/18 23:10 05/07/18 23:10 05/07/18 23:10 05/07/18 23:10 05/07/18 23:10 Intake and Output: 05/08/18 05/08/18 06:59 18:59 Output Total 175 Balance -175 - Medications Medications: Current Medications Acetaminophen (Tylenol 325mg Tab) 650 mg PO Q4 PRN PRN Reason: Pain, Mild (1-3) Al Hydrox/Mg Hydrox/Simethicone (Maalox 30 Ml) 30 ml PO Q6 PRN PRN Reason: Indigestion / Heartburn Amlodipine Besylate (Norvasc) 5 mg PO DAILY [facility] Last Admin: 05/07/18 09:51 Dose: 5 mg Heparin Sodium (Porcine) (Heparin) 5,000 units SC Q8 [facility] Last Admin: 05/08/18 06:00 Dose: 5,000 units Hydromorphone HCl (Dilaudid) 0.5 mg IVP Q4H PRN PRN Reason: Pain, severe (8-10) Last Admin: 05/08/18 01:38 Dose: 0.5 mg Piperacillin Sod/Tazobactam Sod (Zosyn 3.375 Gm Iv Premix) 3.375 gm in 50 mls @ 100 mls/hr IVPB Q6H [facility]; Protocol Last Admin: 05/08/18 03:58 Dose: 100 mls/hr Metronidazole (Flagyl) 500 mg in 100 mls @ 100 mls/hr IVPB Q8H [facility]; Protocol Last Admin: 05/08/18 03:00 Dose: 100 mls/hr BUPIVACAINE 0.125%/0.9% NACL (Bupivacaine-Ns 0.125% On-Q Carburetor Rebuilder) 600 mls @ 7 mls/hr IJ ONCE ONE Stop: 05/09/18 00:42 Ondansetron HCl (Zofran Inj) 4 mg IVP Q4H PRN PRN Reason: Nausea/Vomiting Last Admin: 05/08/18 01:36 Dose: 4 mg Oxycodone HCl (Oxycodone Immediate Release Tab) 5 mg PO Q4 PRN PRN Reason: Pain, moderate (4-7) Last Admin: 05/07/18 16:12 Dose: 5 mg Pantoprazole Sodium (Protonix Inj) 40 mg IVP Q12H [facility] Last Admin: 05/07/18 21:40 Dose: 40 mg - Labs Labs: 05/07/18 07:31 05/07/18 07:31 PT 15.5 SECONDS (9.7-12.2) H 05/04/18 07:04 INR 1.4 05/04/18 07:04 APTT 35 SECONDS (21-34) H 05/01/18 11:45 - Constitutional Appears: Non-toxic, No Acute Distress - Head Exam Head Exam: ATRAUMATIC, NORMOCEPHALIC - Eye Exam Eye Exam: EOMI, PERRL - ENT Exam ENT Exam: Mucous Membranes Moist - Neck Exam Neck Exam: Full ROM. absent: Tenderness - Respiratory Exam Respiratory Exam: Clear to Ausculation Bilateral, NORMAL BREATHING PATTERN. absent: Rales, Rhonchi, Wheezes, Respiratory Distress, Stridor - Cardiovascular Exam Cardiovascular Exam: REGULAR RHYTHM, +S1, +S2. absent: Gallop, Rubs, Murmur - GI/Abdominal Exam GI & Abdominal Exam: Soft, Normal Bowel Sounds. absent: Tenderness, Organomegaly, Rebound Additional comments: ostomy bag with dark brown output stoma pink, patent Drew drain on left Dressings clean, dry, intact - Extremities Exam Extremities Exam: Normal Capillary Refill. absent: Calf Tenderness, Pedal Edema - Back Exam Back Exam: absent: CVA tenderness (L), CVA tenderness (R) - Neurological Exam Neurological Exam: Alert, Awake, Oriented x3 - Psychiatric Exam Psychiatric exam: Normal Affect, Normal Mood - Skin Skin Exam: Dry, Intact, Warm Assessment and Plan - Assessment and Plan (Free Text) Assessment: 52 year old HTN presenting with perforated acute diverticulitis POD#5, s/p sigmoidectomy w/ diverting loop ileostomy. Plan: Acute diverticulitis of sigmoid colon with perforation Phlegmon of adjacent left adnexal region Hx of Gastritis -Preoperative/intraoperative/postoperative management per General Surgery team (Dr. Ames) -Pt underwent an 05/03/18 exploratory laparoscopy converted to exploratory laparotomy with resection of the sigmoid colon, primary colon anastomoses, diverticular bleed ileostomy with insertion of On-Q pump and local anesthesia catheters and Renee insertion. anesthesia had attempted NG tube but patient could not tolerate. -CT abdomen/pelvis (05/01): Acute uncomplicated sigmoid diverticulitis. Severe circumferential mural thickening in the gastric pylorus is nonspecific could be correlated to nonspecific gastritis. Mild hepatomegaly and fatty liver. -CT abdomen/pelvis (05/03): Results including prominent focal thickening of the sigmoid colon with associated diverticuli as well as prominent adjacent mesenteric fat stranding and fluid suggestive for acute diverticulitis intra-a bdominal with adjacent foci of free air suggestive of a perforated acute diverticulitis. Posterior to the sigmoid colon is a suggestion of a developing collection 3.7 x 2.6 cm adjacent soft tissue calcification 8 mm. Free intraperitoneal air noted within the upper abdomen fatty infiltration of the liver -General Surgery (Dr. Ames) recs appreciated -onQ is functioning, but her pain may be refractory Dilaudid 0.5 mg IVP q8h prn with zofran Oxycodone 5mg PO Q4 PRN Tylenol 650mg Q6 PRN pain -continue monitoring BM, drain output -IV abx -GI recs (Dr. Mota) appreciated -outpatient referral for colonoscopy advised when medically stable to assess colon following reversal of ileostomy -Zosyn 3.375 g IV q6 (started on 04/29) -Flagyl 500 mg IVP q8 (started on 05/01) Leukocytosis -WBC 11.5 -BCx, urine Cx, stool cx: no growth -given 1 dose of meropenem -ID (Dr. Wong) consulted Hx of HTN -Norvasc 5 mg PO daily Obesity -A1C: 6.2 -TSH wnl -Lipid panel wnl Impaired glucose tolerance -A1C: 6.2 -Patient will need diet and exercise modification counseling to prevent over diabetes given obese habitus PPx, Diet, Disposition -DVT ppx: scds, heparin 5000 units sc q8 -GI ppx: protonix 40 mg daily -Diet: Liquid Diet, Ensure enlive vanilla -Patient will need 2.75 inch ostomy bags, which can be obtained for free from [employer]. Follow up with Case management. -PT on case Case discussed with Dr. Vinh Morales, PGY1 <Vinh Corbett - Last Filed: 05/12/18 17:21> Objective - Vital Signs/Intake and Output Vital Signs (last 24 hours): Temp Pulse Resp BP Pulse Ox 98.2 F 65 20 113/77 95 05/11/18 08:22 05/11/18 08:22 05/11/18 08:22 05/11/18 08:22 05/11/18 08:22 - Labs Labs: 05/11/18 07:00 05/11/18 07:00 PT 15.5 SECONDS (9.7-12.2) H 05/04/18 07:04 INR 1.4 05/04/18 07:04 APTT 35 SECONDS (21-34) H 05/01/18 11:45 Attending/Attestation - Attestation I have personally seen and examined this patient.: Yes I have fully participated in the care of the patient.: Yes I have reviewed all pertinent clinical information, including history, physical exam and plan: Yes Notes (Text): 05/12/18 17:21 This is a late entry. Care of this patient was gone over in detail with resident Dr. Morales. Vinh Corbett D.O.
[2018-05-08 07:38] LABS: BASO % 0.3 % (0.0-2.0); EOS # 0.4 K/uL (0.0-0.7); EOS % 3.5 % (0.0-4.0); HEMOGLOBIN 12.9 g/dL (11.0-16.0); LYMPH # 1.8 K/uL (1.0-4.3); LYMPH % 15.7 % (20.0-40.0); MEAN CORPUSCULAR HEMOGLOBIN 28.6 pg (27.0-31.0); MEAN CORPUSCULAR HGB CONC 31.8 g/dL (33.0-37.0); MEAN PLATELET VOLUME 9.3 fL (7.2-11.7); MONO # 1.2 K/uL (0.0-0.8); MONO % 10.6 % (0.0-10.0); NEUT % 69.9 % (50.0-75.0); NRBC % 0.1 % (0.0-2.0); RBC 4.52 Mil/uL (3.80-5.20); RED CELL DISTRIBUTION WIDTH 13.3 % (11.5-14.5); WHITE BLOOD COUNT 11.5 K/uL (4.8-10.8)
[2018-05-08 07:59] LABS: ALB/GLOB RATIO 1.3 (1.0-2.1); ALBUMIN 3.3 g/dL (3.5-5.0); ALT/SGPT 29 U/L (9-52); AST/SGOT 41 U/L (14-36); BLOOD UREA NITROGEN 10 mg/dL (7-17); CALCIUM 8.4 mg/dl (8.6-10.4); GFR NON-AFRICAN AMERICAN > 60
--- NOTE | 2018-05-08 08:56 | CP.PCM.PN ---
<Ravinder Sahu - Last Filed: 05/08/18 12:31> Subjective - Date & Time of Evaluation Date of Evaluation: 05/08/18 Time of Evaluation: 08:52 - Subjective Subjective: Surgery Progress note- Dr. Ames Patient seen and examined at bedside. Complaining of some abdominal discomfort, however pain improved from yesterday. Well controlled on dialudid and oxycodone. WBC trending down, on Abx. Drew drain 110cc/24hr serosang. + OOB and ambulating. Denies fevers, chills, chest pain, shortness of breath Objective - Vital Signs/Intake and Output Vital Signs (last 24 hours): Temp Pulse Resp BP Pulse Ox 97.8 F 75 20 150/96 H 97 05/08/18 08:00 05/08/18 08:00 05/08/18 08:00 05/08/18 08:00 05/08/18 08:00 Intake and Output: 05/08/18 05/08/18 06:59 18:59 Output Total 175 Balance -175 - Medications Medications: Current Medications Acetaminophen (Tylenol 325mg Tab) 650 mg PO Q4 PRN PRN Reason: Pain, Mild (1-3) Last Admin: 05/08/18 07:59 Dose: 650 mg Al Hydrox/Mg Hydrox/Simethicone (Maalox 30 Ml) 30 ml PO Q6 PRN PRN Reason: Indigestion / Heartburn Amlodipine Besylate (Norvasc) 5 mg PO DAILY [facility] Last Admin: 05/07/18 09:51 Dose: 5 mg Heparin Sodium (Porcine) (Heparin) 5,000 units SC Q8 [facility] Last Admin: 05/08/18 06:00 Dose: 5,000 units Hydromorphone HCl (Dilaudid) 0.5 mg IVP Q4H PRN PRN Reason: Pain, severe (8-10) Last Admin: 05/08/18 01:38 Dose: 0.5 mg Piperacillin Sod/Tazobactam Sod (Zosyn 3.375 Gm Iv Premix) 3.375 gm in 50 mls @ 100 mls/hr IVPB Q6H [facility]; Protocol Last Admin: 05/08/18 03:58 Dose: 100 mls/hr Metronidazole (Flagyl) 500 mg in 100 mls @ 100 mls/hr IVPB Q8H [facility]; Protocol Last Admin: 05/08/18 03:00 Dose: 100 mls/hr BUPIVACAINE 0.125%/0.9% NACL (Bupivacaine-Ns 0.125% On-Q Fur Blower) 600 mls @ 7 mls/hr IJ ONCE ONE Stop: 05/09/18 00:42 Ondansetron HCl (Zofran Inj) 4 mg IVP Q4H PRN PRN Reason: Nausea/Vomiting Last Admin: 05/08/18 01:36 Dose: 4 mg Oxycodone HCl (Oxycodone Immediate Release Tab) 5 mg PO Q4 PRN PRN Reason: Pain, moderate (4-7) Last Admin: 05/07/18 16:12 Dose: 5 mg Pantoprazole Sodium (Protonix Inj) 40 mg IVP Q12H [facility] Last Admin: 05/07/18 21:40 Dose: 40 mg - Labs Labs: 05/08/18 07:14 05/08/18 07:14 PT 15.5 SECONDS (9.7-12.2) H 05/04/18 07:04 INR 1.4 05/04/18 07:04 APTT 35 SECONDS (21-34) H 05/01/18 11:45 - Constitutional Appears: Non-toxic, No Acute Distress - Head Exam Head Exam: ATRAUMATIC - Eye Exam Eye Exam: EOMI. absent: Scleral icterus - ENT Exam ENT Exam: Mucous Membranes Moist - Respiratory Exam Respiratory Exam: Respiratory Distress, NORMAL BREATHING PATTERN. absent: Accessory Muscle Use - Cardiovascular Exam Cardiovascular Exam: REGULAR RHYTHM. absent: Bradycardia, Tachycardia - GI/Abdominal Exam GI & Abdominal Exam: Soft, Tenderness (appropriately tender around incisions). absent: Distended, Firm, Guarding, Rigid - Neurological Exam Neurological Exam: Alert, Awake, Oriented x3 - Psychiatric Exam Psychiatric exam: Normal Affect - Skin Skin Exam: Intact, Warm Assessment and Plan - Assessment and Plan (Free Text) Assessment: 52F w/diverticulitis s/p lap converted to open sigmoidectomy w/loop ileostomy POD#5 Plan: - Pain control PRN - Incentive spirometer - Monitor Drew output - I/O - Ostomy output - anti-emetic prior to meals - OOB and ambulation - continued management per primary team - further recs per Dr. Ames surgical attending PGY2 <Dank Ames - Last Filed: 05/14/18 20:13> Objective - Vital Signs/Intake and Output Vital Signs (last 24 hours): Temp Pulse Resp BP Pulse Ox 98.2 F 65 20 113/77 95 05/11/18 08:22 05/11/18 08:22 05/11/18 08:22 05/11/18 08:22 05/11/18 08:22 - Labs Labs: 05/11/18 07:00 05/11/18 07:00 PT 15.5 SECONDS (9.7-12.2) H 05/04/18 07:04 INR 1.4 05/04/18 07:04 APTT 35 SECONDS (21-34) H 05/01/18 11:45 Attending/Attestation - Attestation I have personally seen and examined this patient.: Yes I have fully participated in the care of the patient.: Yes I have reviewed all pertinent clinical information, including history, physical exam and plan: Yes Notes (Text): Pt was seen and examine at bedside Agree with above note and assessment Pt is improving clinically IV antibiotics Liquid diet only due to ileus Plan d.w pt in detail
[2018-05-08] MEDS: oxyCODONE 5 mg Immediate Release Tab PO PRN (09:00)
[2018-05-09] MEDS: metroNIDAZOLE IV 500 mg/100 ml 500 MG/100 ML BAG IVPB SCH ×3 (03:30→18:28)
[2018-05-09] MEDS: Piperacill/Tazo 3.375gm in Dex 3.375 GM/50 ML BAG IVPB SCH ×4 (03:36→22:27)
[2018-05-09] MEDS: HYDROmorphone 0.5 mg/0.5 ml ISec IVP PRN ×2 (06:27→16:51)
--- NOTE | 2018-05-09 07:25 | CP.PCM.PN ---
<Sylvester Mann - Last Filed: 05/09/18 18:07> Subjective - Date & Time of Evaluation Date of Evaluation: 05/09/18 Time of Evaluation: 08:00 - Subjective Subjective: PGY-[address] Vinh Corbett service Patient is seen and examined at bedside. Patient has no complaints at this time and is found sleeping comfortably. Patient states her abdominal pain is a 4/10. Denies fever, chills, chest pain, sob, n/v/d/c. States she is eating small quantities, as sometimes food makes her nauseous. Patient reports being OOB and ambulating. Ostomy bag collecting brown, green liquid stool. Objective - Vital Signs/Intake and Output Vital Signs (last 24 hours): Temp Pulse Resp BP Pulse Ox 98.7 F 65 20 143/81 98 05/09/18 00:00 05/09/18 00:00 05/09/18 00:00 05/09/18 00:00 05/09/18 00:00 Intake and Output: 05/09/18 05/09/18 06:59 18:59 Output Total 120 Balance -120 - Medications Medications: Current Medications Acetaminophen (Tylenol 325mg Tab) 650 mg PO Q4 PRN PRN Reason: Pain, Mild (1-3) Last Admin: 05/08/18 07:59 Dose: 650 mg Al Hydrox/Mg Hydrox/Simethicone (Maalox 30 Ml) 30 ml PO Q6 PRN PRN Reason: Indigestion / Heartburn Amlodipine Besylate (Norvasc) 5 mg PO DAILY [facility] Last Admin: 05/08/18 09:00 Dose: 5 mg Heparin Sodium (Porcine) (Heparin) 5,000 units SC Q8 [facility] Last Admin: 05/09/18 06:31 Dose: 5,000 units Hydromorphone HCl (Dilaudid) 0.5 mg IVP Q8H PRN PRN Reason: Pain, severe (8-10) Last Admin: 05/09/18 06:27 Dose: 0.5 mg Piperacillin Sod/Tazobactam Sod (Zosyn 3.375 Gm Iv Premix) 3.375 gm in 50 mls @ 100 mls/hr IVPB Q6H [facility]; Protocol Last Admin: 05/09/18 03:36 Dose: 100 mls/hr Metronidazole (Flagyl) 500 mg in 100 mls @ 100 mls/hr IVPB Q8H [facility]; Protocol Last Admin: 05/09/18 03:30 Dose: 100 mls/hr Ondansetron HCl (Zofran Inj) 4 mg IVP Q4 [facility] Last Admin: 05/09/18 03:36 Dose: 4 mg Oxycodone HCl (Oxycodone Immediate Release Tab) 5 mg PO Q4 PRN PRN Reason: Pain, moderate (4-7) Last Admin: 05/08/18 09:00 Dose: 5 mg Pantoprazole Sodium (Protonix Inj) 40 mg IVP Q12H [facility] Last Admin: 05/08/18 22:03 Dose: 40 mg - Labs Labs: 05/08/18 07:14 05/08/18 07:14 PT 15.5 SECONDS (9.7-12.2) H 05/04/18 07:04 INR 1.4 05/04/18 07:04 APTT 35 SECONDS (21-34) H 05/01/18 11:45 - Constitutional Appears: Non-toxic, No Acute Distress - Head Exam Head Exam: ATRAUMATIC, NORMOCEPHALIC - Eye Exam Eye Exam: EOMI, Normal appearance - ENT Exam ENT Exam: Mucous Membranes Moist, Normal Exam - Respiratory Exam Respiratory Exam: Clear to Ausculation Bilateral, NORMAL BREATHING PATTERN. absent: Rales, Rhonchi, Wheezes - Cardiovascular Exam Cardiovascular Exam: REGULAR RHYTHM, +S1, +S2 - GI/Abdominal Exam GI & Abdominal Exam: Soft, Normal Bowel Sounds. absent: Tenderness Additional comments: ostomy bag with dark/green brown output stoma pink, patent Drew drain removed, dressing in place, clean/dry/intact midline stapled with no drainage or bleeding, no signs of cellulitis. - Extremities Exam Extremities Exam: Full ROM, Normal Inspection. absent: Pedal Edema, Tenderness - Neurological Exam Neurological Exam: Alert, Awake, Oriented x3 - Psychiatric Exam Psychiatric exam: Normal Affect - Skin Skin Exam: Dry, Normal Color, Warm Assessment and Plan - Assessment and Plan (Free Text) Assessment: 52 year old HTN presenting with perforated acute diverticulitis POD#6, s/p sigmoidectomy w/ diverting loop ileostomy. Plan: Acute diverticulitis of sigmoid colon with perforation Phlegmon of adjacent left adnexal region Hx of Gastritis -Preoperative/intraoperative/postoperative management per General Surgery team (Dr. Ames) -Pt underwent an 05/03/18 exploratory laparoscopy converted to exploratory laparotomy with resection of the sigmoid colon, primary colon anastomoses, diverticular bleed ileostomy with insertion of On-Q pump and local anesthesia catheters and Renee insertion. anesthesia had attempted NG tube but patient could not tolerate. -CT abdomen/pelvis (04/30): Acute uncomplicated sigmoid diverticulitis. Severe circumferential mural thickening in the gastric pylorus is nonspecific could be correlated to nonspecific gastritis. Mild hepatomegaly and fatty liver. -CT abdomen/pelvis (05/02): Results including prominent focal thickening of the sigmoid colon with associated diverticuli as well as prominent adjacent mesenteric fat stranding and fluid suggestive for acute diverticulitis intra- abdominal with adjacent foci of free air suggestive of a perforated acute diverticulitis. Posterior to the sigmoid colon is a suggestion of a developing collection 3.7 x 2.6 cm adjacent soft tissue calcification 8 mm. Free intraperitoneal air noted within the upper abdomen fatty infiltration of the liver -General Surgery (Dr. Ames) recs appreciated * SC drew drain * Advance diet to soft diet * Ostomy care and education -GI recs (Dr. Mota) appreciated -outpatient referral for colonoscopy advised when medically stable to assess colon following reversal of ileostomy - ID (Dr Wong) - recs appreciated -Medications: Dilaudid 0.5 mg IVP q8h PRN Oxycodone 5mg PO q4h PRN Tylenol 650mg PO q4h PRN Zosyn 3.375 g IV q6 (started on 04/29) Flagyl 500 mg IVP q8 (started on 05/01) Leukocytosis -WBC 10.6 from 11.5, decreasing -urine Cx, stool cx: no growth -Bcx : no growth for 4 days -Abx: Zosyn 3.375 g IV q6 (started on 04/29) and Flagyl 500 mg IVP q8 (started on 05/01) -ID (Dr. Wong) consulted Hx of HTN -Norvasc 5 mg PO daily -continue to monitor blood pressure Obesity -A1C: 6.2 -TSH wnl -Lipid panel wnl Impaired glucose tolerance -A1C: 6.2 -Patient will need diet and exercise modification counseling to prevent over diabetes given obese habitus PPx, Diet, Disposition -DVT ppx: scds, heparin 5000 units sc q8 -GI ppx: protonix 40 mg daily -Diet: Soft diet , Ensure enlive x 3/daily -PT on case Dispo: Patient will need 2.75 inch ostomy bags, which can be obtained for free from [employer] and [employer]. Follow up with Case management to make sure patient can get these supplies before d/c home. Plan discussed with Dr Raissa Mann, PGY-1 <Vinh Corbett - Last Filed: 05/12/18 17:18> Objective - Vital Signs/Intake and Output Vital Signs (last 24 hours): Temp Pulse Resp BP Pulse Ox 98.2 F 65 20 113/77 95 05/11/18 08:22 05/11/18 08:22 05/11/18 08:22 05/11/18 08:22 05/11/18 08:22 - Labs Labs: 05/11/18 07:00 05/11/18 07:00 PT 15.5 SECONDS (9.7-12.2) H 05/04/18 07:04 INR 1.4 05/04/18 07:04 APTT 35 SECONDS (21-34) H 05/01/18 11:45 Attending/Attestation - Attestation I have personally seen and examined this patient.: Yes I have fully participated in the care of the patient.: Yes I have reviewed all pertinent clinical information, including history, physical exam and plan: Yes Notes (Text): 05/12/18 17:18 This is a late entry. Care of this patient was gone over in detail with resident Dr. Mann. Vinh Corbett D.O.
[2018-05-09 07:41] LABS: BASO % 0.4 % (0.0-2.0); EOS # 0.3 K/uL (0.0-0.7); EOS % 2.6 % (0.0-4.0); HEMOGLOBIN 13.6 g/dL (11.0-16.0); LYMPH # 1.4 K/uL (1.0-4.3); LYMPH % 13.3 % (20.0-40.0); MEAN CORPUSCULAR HEMOGLOBIN 29.3 pg (27.0-31.0); MEAN CORPUSCULAR HGB CONC 32.6 g/dL (33.0-37.0); MEAN PLATELET VOLUME 9.4 fL (7.2-11.7); MONO # 1.1 K/uL (0.0-0.8); NEUT # 7.8 K/uL (1.8-7.0); NEUT % 73.7 % (50.0-75.0); RBC 4.65 Mil/uL (3.80-5.20); RED CELL DISTRIBUTION WIDTH 13.4 % (11.5-14.5); WHITE BLOOD COUNT 10.6 K/uL (4.8-10.8)
--- NOTE | 2018-05-09 08:09 | CP.PCM.PN ---
<August Woodson - Last Filed: 05/09/18 08:53> Subjective - Date & Time of Evaluation Date of Evaluation: 05/09/18 Time of Evaluation: 08:07 - Subjective Subjective: SURGERY NOTE FOR DR. AMES 52F seen and examined at bedside. Patient denies abdominal pain, nausea and vomiting. Patient tolerating diet and having ostomy function. Objective - Vital Signs/Intake and Output Vital Signs (last 24 hours): Temp Pulse Resp BP Pulse Ox 98.7 F 65 20 143/81 98 05/09/18 00:00 05/09/18 00:00 05/09/18 00:00 05/09/18 00:00 05/09/18 00:00 Intake and Output: 05/09/18 05/09/18 06:59 18:59 Output Total 120 Balance -120 - Medications Medications: Current Medications Acetaminophen (Tylenol 325mg Tab) 650 mg PO Q4 PRN PRN Reason: Pain, Mild (1-3) Last Admin: 05/08/18 07:59 Dose: 650 mg Al Hydrox/Mg Hydrox/Simethicone (Maalox 30 Ml) 30 ml PO Q6 PRN PRN Reason: Indigestion / Heartburn Amlodipine Besylate (Norvasc) 5 mg PO DAILY [facility] Last Admin: 05/08/18 09:00 Dose: 5 mg Heparin Sodium (Porcine) (Heparin) 5,000 units SC Q8 [facility] Last Admin: 05/09/18 06:31 Dose: 5,000 units Hydromorphone HCl (Dilaudid) 0.5 mg IVP Q8H PRN PRN Reason: Pain, severe (8-10) Last Admin: 05/09/18 06:27 Dose: 0.5 mg Piperacillin Sod/Tazobactam Sod (Zosyn 3.375 Gm Iv Premix) 3.375 gm in 50 mls @ 100 mls/hr IVPB Q6H [facility]; Protocol Last Admin: 05/09/18 03:36 Dose: 100 mls/hr Metronidazole (Flagyl) 500 mg in 100 mls @ 100 mls/hr IVPB Q8H [facility]; Protocol Last Admin: 05/09/18 03:30 Dose: 100 mls/hr Ondansetron HCl (Zofran Inj) 4 mg IVP Q4 [facility] Last Admin: 05/09/18 03:36 Dose: 4 mg Oxycodone HCl (Oxycodone Immediate Release Tab) 5 mg PO Q4 PRN PRN Reason: Pain, moderate (4-7) Last Admin: 05/08/18 09:00 Dose: 5 mg Pantoprazole Sodium (Protonix Inj) 40 mg IVP Q12H [facility] Last Admin: 05/08/18 22:03 Dose: 40 mg - Labs Labs: 05/09/18 07:20 05/08/18 07:14 PT 15.5 SECONDS (9.7-12.2) H 05/04/18 07:04 INR 1.4 05/04/18 07:04 APTT 35 SECONDS (21-34) H 05/01/18 11:45 - Constitutional Appears: Non-toxic, No Acute Distress - Respiratory Exam Respiratory Exam: Clear to Ausculation Bilateral, NORMAL BREATHING PATTERN - Cardiovascular Exam Cardiovascular Exam: REGULAR RHYTHM, +S2 - GI/Abdominal Exam GI & Abdominal Exam: Soft. absent: Distended, Firm, Guarding, Rigid, Tenderness, Rebound Additional comments: ostomy output bilious pj output 40cc/24hrs serosanguinous - Neurological Exam Neurological Exam: Alert, Awake - Skin Skin Exam: Dry, Intact, Normal Color, Warm Assessment and Plan - Assessment and Plan (Free Text) Assessment: 52F w/diverticulitis s/p lap converted to open sigmoidectomy w/loop ileostomy POD#6 Plan: - DC pj drain - advance to soft diet - ostomy care and education Further recs discuss with Dr. Hui Woodson, PGY3 <Dank Ames - Last Filed: 05/14/18 20:14> Objective - Vital Signs/Intake and Output Vital Signs (last 24 hours): Temp Pulse Resp BP Pulse Ox 98.2 F 65 20 113/77 95 05/11/18 08:22 05/11/18 08:22 05/11/18 08:22 05/11/18 08:22 05/11/18 08:22 - Labs Labs: 05/11/18 07:00 05/11/18 07:00 PT 15.5 SECONDS (9.7-12.2) H 05/04/18 07:04 INR 1.4 05/04/18 07:04 APTT 35 SECONDS (21-34) H 05/01/18 11:45 Attending/Attestation - Attestation I have personally seen and examined this patient.: Yes I have fully participated in the care of the patient.: Yes I have reviewed all pertinent clinical information, including history, physical exam and plan: Yes Notes (Text): Pt was seen and examine at bedside Agree with above note and assessment Nausea has resolved Ileostomy is leaking Wound care consult C/w IV antibiotics Liquid diet Plan d.w pt in detail
[2018-05-09 08:19] LABS: ALB/GLOB RATIO 1.2 (1.0-2.1); ALBUMIN 3.5 g/dL (3.5-5.0); ALT/SGPT 42 U/L (9-52); AST/SGOT 47 U/L (14-36); BLOOD UREA NITROGEN 11 mg/dL (7-17); CALCIUM 8.7 mg/dl (8.6-10.4); GFR NON-AFRICAN AMERICAN > 60
[2018-05-09] MEDS: oxyCODONE 5 mg Immediate Release Tab PO PRN ×2 (11:34→18:31)
[2018-05-10] MEDS: metroNIDAZOLE IV 500 mg/100 ml 500 MG/100 ML BAG IVPB SCH ×3 (03:39→18:15)
[2018-05-10] MEDS: Piperacill/Tazo 3.375gm in Dex 3.375 GM/50 ML BAG IVPB SCH ×4 (03:40→21:44)
[2018-05-10] MEDS: HYDROmorphone 0.5 mg/0.5 ml ISec IVP PRN ×2 (04:29→18:14)
[2018-05-10 07:11] LABS: BASO # 0.1 K/uL (0.0-0.2); BASO % 0.8 % (0.0-2.0); EOS # 0.4 K/uL (0.0-0.7); EOS % 3.1 % (0.0-4.0); HEMOGLOBIN 13.6 g/dL (11.0-16.0); LYMPH # 1.9 K/uL (1.0-4.3); MEAN CELL VOLUME 90.1 fL (81.0-99.0); MEAN CORPUSCULAR HEMOGLOBIN 29.3 pg (27.0-31.0); MEAN CORPUSCULAR HGB CONC 32.5 g/dL (33.0-37.0); MEAN PLATELET VOLUME 8.9 fL (7.2-11.7); MONO # 1.1 K/uL (0.0-0.8); NEUT # 8.6 K/uL (1.8-7.0); NEUT % 71.1 % (50.0-75.0); NRBC % 0.1 % (0.0-2.0); RBC 4.66 Mil/uL (3.80-5.20); RED CELL DISTRIBUTION WIDTH 13.6 % (11.5-14.5)
--- NOTE | 2018-05-10 07:21 | CP.PCM.PN ---
<Jada Morales - Last Filed: 05/10/18 20:01> Subjective - Date & Time of Evaluation Date of Evaluation: 05/10/18 Time of Evaluation: 07:21 - Subjective Subjective: Progress Note for Hospitalist service Patient seen and evaluated at bedside. She states she feels much better than yesterday and her abdominal pain has improved. She denies fevers, chills, chest pain, shortness of breath, vomiting. She is drinking her Ensure and eating small amounts of food. She states that she feels nauseated when she eats. She sushila nues to have output from her ostomy bag. She is ambulating and getting out of bed. Objective - Vital Signs/Intake and Output Vital Signs (last 24 hours): Temp Pulse Resp BP Pulse Ox 98 F 62 20 126/81 98 05/09/18 23:31 05/09/18 23:31 05/09/18 23:31 05/09/18 23:31 05/09/18 23:31 - Medications Medications: Current Medications Acetaminophen (Tylenol 325mg Tab) 650 mg PO Q4 PRN PRN Reason: Pain, Mild (1-3) Last Admin: 05/09/18 19:52 Dose: 650 mg Al Hydrox/Mg Hydrox/Simethicone (Maalox 30 Ml) 30 ml PO Q6 PRN PRN Reason: Indigestion / Heartburn Amlodipine Besylate (Norvasc) 5 mg PO DAILY [facility] Last Admin: 05/09/18 09:54 Dose: 5 mg Heparin Sodium (Porcine) (Heparin) 5,000 units SC Q8 [facility] Last Admin: 05/10/18 06:16 Dose: 5,000 units Hydromorphone HCl (Dilaudid) 0.5 mg IVP Q8H PRN PRN Reason: Pain, severe (8-10) Last Admin: 05/10/18 04:29 Dose: 0.5 mg Piperacillin Sod/Tazobactam Sod (Zosyn 3.375 Gm Iv Premix) 3.375 gm in 50 mls @ 100 mls/hr IVPB Q6H [facility]; Protocol Last Admin: 05/10/18 03:40 Dose: 100 mls/hr Metronidazole (Flagyl) 500 mg in 100 mls @ 100 mls/hr IVPB Q8H [facility]; Protocol Last Admin: 05/10/18 03:39 Dose: 100 mls/hr Ondansetron HCl (Zofran Inj) 4 mg IVP Q8 PRN PRN Reason: Nausea/Vomiting Oxycodone HCl (Oxycodone Immediate Release Tab) 5 mg PO Q4 PRN PRN Reason: Pain, moderate (4-7) Last Admin: 05/09/18 18:31 Dose: 5 mg Pantoprazole Sodium (Protonix Inj) 40 mg IVP Q12H [facility] Last Admin: 05/09/18 22:27 Dose: 40 mg - Labs Labs: 05/09/18 07:20 05/09/18 07:20 PT 15.5 SECONDS (9.7-12.2) H 05/04/18 07:04 INR 1.4 05/04/18 07:04 APTT 35 SECONDS (21-34) H 05/01/18 11:45 - Constitutional Appears: Non-toxic, No Acute Distress - Head Exam Head Exam: ATRAUMATIC, NORMOCEPHALIC - Eye Exam Eye Exam: EOMI, PERRL - ENT Exam ENT Exam: Mucous Membranes Moist - Respiratory Exam Respiratory Exam: Clear to Ausculation Bilateral, NORMAL BREATHING PATTERN. absent: Rales, Rhonchi, Wheezes, Respiratory Distress, Stridor - Cardiovascular Exam Cardiovascular Exam: REGULAR RHYTHM, +S1, +S2. absent: Gallop, Rubs, Murmur - GI/Abdominal Exam GI & Abdominal Exam: Soft, Normal Bowel Sounds Additional comments: Ostomy bag with dark brown output stoma pink, patent dressing on left clean dry intact. Midline lili intact with no dehiscence. - Extremities Exam Extremities Exam: absent: Calf Tenderness, Pedal Edema - Neurological Exam Neurological Exam: Alert, Awake, Oriented x3 - Skin Skin Exam: Dry, Intact, Warm Assessment and Plan - Assessment and Plan (Free Text) Assessment: 52 year old female with history of HTN presenting with perforated acute diverticulitis POD#6, s/p sigmoidectomy w/ diverting loop ileostomy. Plan: Acute diverticulitis of sigmoid colon with perforation Phlegmon of adjacent left adnexal region Hx of Gastritis -Preoperative/intraoperative/postoperative management per General Surgery team (Dr. Ames) -Pt underwent an 05/03/18 exploratory laparoscopy converted to exploratory la parotomy with resection of the sigmoid colon, primary colon anastomoses, diverticular bleed ileostomy with insertion of On-Q pump and local anesthesia catheters and Renee insertion. anesthesia had attempted NG tube but patient could not tolerate. -CT abdomen/pelvis (04/30): Acute uncomplicated sigmoid diverticulitis. Severe circumferential mural thickening in the gastric pylorus is nonspecific could be correlated to nonspecific gastritis. Mild hepatomegaly and fatty liver. -CT abdomen/pelvis (05/02): Results including prominent focal thickening of the sigmoid colon with associated diverticuli as well as prominent adjacent mesenteric fat stranding and fluid suggestive for acute diverticulitis intra- abdominal with adjacent foci of free air suggestive of a perforated acute diverticulitis. Posterior to the sigmoid colon is a suggestion of a developing collection 3.7 x 2.6 cm adjacent soft tissue calcification 8 mm. Free intraperitoneal air noted within the upper abdomen fatty infiltration of the liver -General Surgery (Dr. Ames) recs appreciated * Advance diet to soft diet * Ostomy care and education * Patient educated by Jed wound care nurse in the evening, who provided her with samples of ileostomy bags. * Patient was witnessed changing her bag, son Michele cunningham -GI recs (Dr. Mota) appreciated -outpatient referral for colonoscopy advised when medically stable to assess colon following reversal of ileostomy - ID (Dr Wong) - recs appreciated Medications: Dilaudid 0.5 mg IVP q12h PRN Oxycodone 5mg PO q4h PRN Tylenol 650mg PO q4h PRN Zosyn 3.375 g IV q6 (started on 04/29) Flagyl 500 mg IVP q8 (started on 05/01) Leukocytosis -WBC 12.0 -urine Cx, stool cx: no growth -Bcx : no growth for 4 days -Abx: Zosyn 3.375 g IV q6 (started on 04/29) and Flagyl 500 mg IVP q8 (started on 05/01) -ID (Dr. Wong) consulted Hx of HTN -Norvasc 5 mg PO daily -continue to monitor blood pressure Obesity -A1C: 6.2 -TSH wnl -Lipid panel wnl Major depressive disorder Patient will need to follow up with new psychiatrist on discharge after following up with PMD Dr. Mendes Impaired glucose tolerance -A1C: 6.2 -Patient will need diet and exercise modification counseling to prevent over diabetes given obese habitus PPx, Diet, Disposition -DVT ppx: scds, heparin 5000 units sc q8 -GI ppx: protonix 40 mg daily -Diet: Soft diet , Ensure enlive x 3/daily -PT on case Dispo: Patient will need 2.75 inch ostomy bags, which can be obtained for free from [employer] and [employer]. Follow up with Case management Anjali to make sure patient can get these supplies before discharge home. Pending follow up instructions for follow up with Dr. Ames. Patient able to change ileostomy bags. Son, Michele present at bedside. Case discussed with Dr. Vinh Morales, PGY1 <Vinh Corbett - Last Filed: 05/12/18 17:21> Objective - Vital Signs/Intake and Output Vital Signs (last 24 hours): Temp Pulse Resp BP Pulse Ox 98.2 F 65 20 113/77 95 05/11/18 08:22 05/11/18 08:22 05/11/18 08:22 05/11/18 08:22 05/11/18 08:22 - Labs Labs: 05/11/18 07:00 05/11/18 07:00 PT 15.5 SECONDS (9.7-12.2) H 05/04/18 07:04 INR 1.4 05/04/18 07:04 APTT 35 SECONDS (21-34) H 05/01/18 11:45 Attending/Attestation - Attestation I have personally seen and examined this patient.: Yes I have fully participated in the care of the patient.: Yes I have reviewed all pertinent clinical information, including history, physical exam and plan: Yes Notes (Text): 05/12/18 17:21 This is a late entry. Care of this patient was gone over in detail with resident Dr. Morales. Vinh Corbett D.O.
[2018-05-10 08:02] LABS: ALB/GLOB RATIO 1.2 (1.0-2.1); ALBUMIN 3.4 g/dL (3.5-5.0); ALT/SGPT 42 U/L (9-52); AST/SGOT 44 U/L (14-36); BLOOD UREA NITROGEN 12 mg/dL (7-17); GFR NON-AFRICAN AMERICAN > 60
--- NOTE | 2018-05-10 12:38 | CP.PCM.PN ---
<Nicole Decker P - Last Filed: 05/10/18 17:25> Subjective - Date & Time of Evaluation Date of Evaluation: 05/10/18 Time of Evaluation: 09:15 - Subjective Subjective: Progress note for Dr. Ames. Patient seen and examined at bedside. Reports nausea with eating. Denies vomiting, abdominal pain, fever and chills. Patient has recieved ostomy care education. Drew drain was removed yesterday. Objective - Vital Signs/Intake and Output Vital Signs (last 24 hours): Temp Pulse Resp BP Pulse Ox 98.5 F 71 20 142/97 H 98 05/10/18 08:00 05/10/18 08:00 05/10/18 08:00 05/10/18 08:00 05/10/18 08:00 - Medications Medications: Current Medications Acetaminophen (Tylenol 325mg Tab) 650 mg PO Q4 PRN PRN Reason: Pain, Mild (1-3) Last Admin: 05/10/18 08:57 Dose: 650 mg Al Hydrox/Mg Hydrox/Simethicone (Maalox 30 Ml) 30 ml PO Q6 PRN PRN Reason: Indigestion / Heartburn Amlodipine Besylate (Norvasc) 5 mg PO DAILY [facility] Last Admin: 05/10/18 09:00 Dose: 5 mg Heparin Sodium (Porcine) (Heparin) 5,000 units SC Q8 [facility] Last Admin: 05/10/18 06:16 Dose: 5,000 units Hydromorphone HCl (Dilaudid) 0.5 mg IVP Q8H PRN PRN Reason: Pain, severe (8-10) Last Admin: 05/10/18 04:29 Dose: 0.5 mg Piperacillin Sod/Tazobactam Sod (Zosyn 3.375 Gm Iv Premix) 3.375 gm in 50 mls @ 100 mls/hr IVPB Q6H [facility]; Protocol Last Admin: 05/10/18 10:18 Dose: 100 mls/hr Metronidazole (Flagyl) 500 mg in 100 mls @ 100 mls/hr IVPB Q8H [facility]; Protocol Last Admin: 05/10/18 03:39 Dose: 100 mls/hr Ondansetron HCl (Zofran Inj) 4 mg IVP Q8 PRN PRN Reason: Nausea/Vomiting Last Admin: 05/10/18 08:58 Dose: 4 mg Oxycodone HCl (Oxycodone Immediate Release Tab) 5 mg PO Q4 PRN PRN Reason: Pain, moderate (4-7) Last Admin: 05/09/18 18:31 Dose: 5 mg Pantoprazole Sodium (Protonix Inj) 40 mg IVP Q12H [facility] Last Admin: 05/09/18 22:27 Dose: 40 mg - Labs Labs: 05/10/18 07:03 05/10/18 07:03 PT 15.5 SECONDS (9.7-12.2) H 05/04/18 07:04 INR 1.4 05/04/18 07:04 APTT 35 SECONDS (21-34) H 05/01/18 11:45 - Constitutional Appears: Non-toxic, No Acute Distress - Head Exam Head Exam: ATRAUMATIC, NORMOCEPHALIC - Eye Exam Eye Exam: Normal appearance - ENT Exam ENT Exam: Mucous Membranes Moist - Neck Exam Neck Exam: Normal Inspection - Respiratory Exam Respiratory Exam: NORMAL BREATHING PATTERN. absent: Respiratory Distress - GI/Abdominal Exam GI & Abdominal Exam: Soft. absent: Tenderness Additional comments: [place] in place in midline incision, clean and dry. Ileostomy on the R with bilious output, surrounding ostomy site without warmth and redness. - Neurological Exam Neurological Exam: Alert, Awake, Oriented x3 - Psychiatric Exam Psychiatric exam: Normal Affect, Normal Mood - Skin Skin Exam: Dry, Normal Color, Warm Assessment and Plan - Assessment and Plan (Free Text) Assessment: 52F w/diverticulitis s/p lap converted to open sigmoidectomy w/loop ileostomy POD#7 Plan: -Soft diet as tolerated -additional ostomy care education if needed -patient stable for discharge from a surgical standpoint -follow up with Dr. Ames as outpatient Further recs as per Dr. Ames. Nicole Decker, PGY-1 <Dank Ames - Last Filed: 05/14/18 20:16> Objective - Vital Signs/Intake and Output Vital Signs (last 24 hours): Temp Pulse Resp BP Pulse Ox 98.2 F 65 20 113/77 95 05/11/18 08:22 05/11/18 08:22 05/11/18 08:22 05/11/18 08:22 05/11/18 08:22 - Labs Labs: 05/11/18 07:00 05/11/18 07:00 PT 15.5 SECONDS (9.7-12.2) H 05/04/18 07:04 INR 1.4 05/04/18 07:04 APTT 35 SECONDS (21-34) H 05/01/18 11:45 Attending/Attestation - Attestation I have personally seen and examined this patient.: Yes I have fully participated in the care of the patient.: Yes I have reviewed all pertinent clinical information, including history, physical exam and plan: Yes Notes (Text): Pt was seen and examine at bedside Agree with above note and assessment Pt is improving clinically still C/O nausea Start PPI DC Plan Advance diet as tolerated Plan d.w pt in detail
[2018-05-10] MEDS ORDERED: HYDROmorphone 0.5 mg/0.5 ml ISec IVP PRN (20:03)
[2018-05-10] MEDS: oxyCODONE 5 mg Immediate Release Tab PO PRN (21:50)
[2018-05-11] MEDS: metroNIDAZOLE IV 500 mg/100 ml 500 MG/100 ML BAG IVPB SCH ×2 (02:35→10:45)
[2018-05-11] MEDS: Piperacill/Tazo 3.375gm in Dex 3.375 GM/50 ML BAG IVPB SCH ×2 (03:34→09:51)
[2018-05-11 07:24] LABS: BASO % 0.3 % (0.0-2.0); EOS # 0.4 K/uL (0.0-0.7); EOS % 3.1 % (0.0-4.0); HEMOGLOBIN 14.7 g/dL (11.0-16.0); LYMPH # 2.7 K/uL (1.0-4.3); LYMPH % 21.6 % (20.0-40.0); MEAN CELL VOLUME 90.7 fL (81.0-99.0); MEAN PLATELET VOLUME 9.3 fL (7.2-11.7); MONO # 1.1 K/uL (0.0-0.8); MONO % 8.6 % (0.0-10.0); NEUT # 8.2 K/uL (1.8-7.0); NEUT % 66.4 % (50.0-75.0); NRBC % 0.1 % (0.0-2.0); PLATELET COUNT 495 K/uL (130-400); WHITE BLOOD COUNT 12.4 K/uL (4.8-10.8)
[2018-05-11 07:54] LABS: ALB/GLOB RATIO 1.3 (1.0-2.1); ALBUMIN 3.9 g/dL (3.5-5.0); ALT/SGPT 31 U/L (9-52); AST/SGOT 35 U/L (14-36); BLOOD UREA NITROGEN 14 mg/dL (7-17); CALCIUM 9.3 mg/dl (8.6-10.4); GFR NON-AFRICAN AMERICAN > 60
--- NOTE | 2018-05-11 08:18 | CP.PCM.PN ---
<Nicole Decker P - Last Filed: 05/11/18 18:25> Subjective - Date & Time of Evaluation Date of Evaluation: 05/11/18 Time of Evaluation: 07:00 - Subjective Subjective: Progress note for Dr. Ames. Patient seen and evaluated at bedside. She states she has mild abdominal pain. Reports some nausea with eating. Patient has been ambulating and using her incentive spirometer. Denies fever, chills, and vomiting. Objective - Vital Signs/Intake and Output Vital Signs (last 24 hours): Temp Pulse Resp BP Pulse Ox 98.7 F 89 20 121/80 96 05/10/18 23:00 05/10/18 23:00 05/10/18 23:00 05/10/18 23:00 05/10/18 23:00 Intake and Output: 05/11/18 05/11/18 06:59 18:59 Intake Total 950 Output Total 150 Balance 800 - Medications Medications: Current Medications Acetaminophen (Tylenol 325mg Tab) 650 mg PO Q4 PRN PRN Reason: Pain, Mild (1-3) Last Admin: 05/10/18 23:48 Dose: 650 mg Al Hydrox/Mg Hydrox/Simethicone (Maalox 30 Ml) 30 ml PO Q6 PRN PRN Reason: Indigestion / Heartburn Amlodipine Besylate (Norvasc) 5 mg PO DAILY [facility] Last Admin: 05/10/18 09:00 Dose: 5 mg Heparin Sodium (Porcine) (Heparin) 5,000 units SC Q8 [facility] Last Admin: 05/11/18 05:27 Dose: 5,000 units Hydromorphone HCl (Dilaudid) 0.5 mg IVP Q12H PRN PRN Reason: Pain, severe (8-10) Piperacillin Sod/Tazobactam Sod (Zosyn 3.375 Gm Iv Premix) 3.375 gm in 50 mls @ 100 mls/hr IVPB Q6H [facility]; Protocol Last Admin: 05/11/18 03:34 Dose: 100 mls/hr Metronidazole (Flagyl) 500 mg in 100 mls @ 100 mls/hr IVPB Q8H [facility]; Protocol Last Admin: 05/11/18 02:35 Dose: 100 mls/hr Ondansetron HCl (Zofran Inj) 4 mg IVP Q8 PRN PRN Reason: Nausea/Vomiting Last Admin: 05/10/18 08:58 Dose: 4 mg Oxycodone HCl (Oxycodone Immediate Release Tab) 5 mg PO Q4 PRN PRN Reason: Pain, moderate (4-7) Last Admin: 05/10/18 21:50 Dose: 5 mg Pantoprazole Sodium (Protonix Inj) 40 mg IVP Q12H [facility] Last Admin: 05/10/18 21:44 Dose: 40 mg - Labs Labs: 05/11/18 07:00 05/11/18 07:00 PT 15.5 SECONDS (9.7-12.2) H 05/04/18 07:04 INR 1.4 05/04/18 07:04 APTT 35 SECONDS (21-34) H 05/01/18 11:45 - Additional Findings Additional findings: - Constitutional Appears: Non-toxic, No Acute Distress - Head Exam Head Exam: ATRAUMATIC, NORMOCEPHALIC - Eye Exam Eye Exam: Normal appearance - ENT Exam ENT Exam: Mucous Membranes Moist - Neck Exam Neck Exam: Normal Inspection - Respiratory Exam Respiratory Exam: NORMAL BREATHING PATTERN. absent: Respiratory Distress - GI/Abdominal Exam GI & Abdominal Exam: Soft. absent: Tenderness Additional comments: [place] in place in midline incision, clean and dry. Ileostomy on the R with bilious output, surrounding ostomy site without warmth or redness. Dressing to L abdomen c/d/i. - Neurological Exam Neurological Exam: Alert, Awake, Oriented x3 - Psychiatric Exam Psychiatric exam: Normal Affect, Normal Mood - Skin Skin Exam: Dry, Normal Color, Warm Assessment and Plan - Assessment and Plan (Free Text) Assessment: 52F w/diverticulitis s/p lap converted to open sigmoidectomy w/loop ileostomy POD#8 Plan: -Patient stable for discharge from surgical standpoint. -follow up with Dr. Ames in his office on 05/16/18 to have mary removed -Patient may shower Further recs as per Dr. Ames. Nicole Decker, PGY-1 <Dank Ames - Last Filed: 05/14/18 20:17> Objective - Vital Signs/Intake and Output Vital Signs (last 24 hours): Temp Pulse Resp BP Pulse Ox 98.2 F 65 20 113/77 95 05/11/18 08:22 05/11/18 08:22 05/11/18 08:22 05/11/18 08:22 05/11/18 08:22 - Labs Labs: 05/11/18 07:00 05/11/18 07:00 PT 15.5 SECONDS (9.7-12.2) H 05/04/18 07:04 INR 1.4 05/04/18 07:04 APTT 35 SECONDS (21-34) H 05/01/18 11:45 Attending/Attestation - Attestation I have personally seen and examined this patient.: Yes I have fully participated in the care of the patient.: Yes I have reviewed all pertinent clinical information, including history, physical exam and plan: Yes Notes (Text): Pt was seen and examine at bedside Agree with above note and assessment Pt is improved clinically Ileostomy is functioning Local wound care f.u as out pt Plan d.w pt in detail.
[2018-05-11 08:23] VITALS: BP 113/77; PULSE 65; TEMP 98.2; O2SAT 95
--- NOTE | 2018-05-11 09:58 | CP.PCM.PN ---
Subjective - Date & Time of Evaluation Date of Evaluation: 05/11/18 Time of Evaluation: 09:30 - Subjective Subjective: Hospitalist Progress Note Patient was seen and examined at 9:30 AM 05/11/18 Upon FULL ROS: Was able to have her Ensure Enlive this morning with NO subsequent N/V Abdominal pain is still present but more of a soreness She was able to empty her Ileostomy Bag of soft to watery brown/green stool this morning Feels gassy at times NO other complaints upon FULL ROS Exam: General: AAOx3, NAD and in good spirits HEENT: NCA, EOMI, PERRLA, NO Pharyngeal erythema/exudate, NO lymphadenopathy, NO thyromegaly Cardio: NS1 and NS2, NO M/R/G Resp: CTA B/L, NO R/R/W GI: BSx4 present but decreased, Soft, Tenderness to palpation with deep palpatio n but NO guarding/rebound tenderness, Ileostomy bag RQ with NO surrounding signs of cellulitis or fluctuance, Ventral Abdominal Surgical [place] inferior to the umbilicus that are intact with NO signs of dehiscence. Ext: NO edema, Pulses are strong and equal, Capillary Refill is 2 seconds Neuro: CN II through XII are grossly intact Assessments: 1). Acute Diverticulitis with Sigmoid Colon Perforation with Phlegmon and Subsequent Ileostomy Status: Acute 2). Hx Gastritis Status: Chronic 3). Leukocytosis Status: Acute 4). Hx HTN Status: Chronic 5). Hx Obesity Status: Chronic 6). Hx Impaired Glucose Tolerance: Status: Chronic 7). Hx Depression Status: Chronic Patient is tolerating her meals of Ensure Enlive. She is still hesitant to try solid foods but I have explained to her and her Son Michele (on night of 05/10/18) to take small bites and chew food thoroughly and not to eat until she was full. Producing stool throgh Ileostomy Bag and is able to empty and replace the Ileostomy bag herself Wound Care Nurse Jed has provided her with Samples of the Ileostomy Bag 2 and 3/4 inch and I have confirmed with Son Michele (on night of 05/10/18) that samples were delivered to patient home (this was also set up by Wound Care Nurse Jed Baer) Spoke with Chlorinator Anjali this morning and she will provide patient with a form that she will need to complete in order to receive assistance with being provided Ileostomy bags free of charge Explained that she will need to follow up with Surgeon Dr. Ames on Tuesday05/16/18 by calling his office for a follow up appointment Explained that she is able to take a shower but NOT a bath and to do her best to keep the surgical area and Ileostomy site dry Resident Dr. Morales spoke with the Surgery Team this morning and was informed that patient does not require any further antibiotics. Patient explains that she does have assistance at home with her Son Michele and her Daughter who will be helping her during her recovery Explained to her that she will go home on Oxycodone as needed for pain and that she will be provided with enough of this pain medication to last her until she sees Dr. Ames on Tuesday05/16/18. I have warned her about the addictive nature of this medication and to use only if absolutely necessary. She understands that she will be given prescription for Norvasc She stopped taking her Paxil for Depression over 1 month ago and states that she tapered herself off of it. She does not want to follow up with her unspecified Psychiatrist and will obtain referral for new Psychiatrist through [facility] with whom she would like to establish primary care. The following instructions were explained to patient and a copy will need to be provided to the patient upon discharge: 1). Please schedule medical care with the [facility] located on Floor [address] of [facility] on [address] in [facility] by calling [phone] for an appointment to take place in the next 7 to 10 days. They will be your primary care physicians that will help to coordinate your health care, provide you with future prescriptions that you will need to h ave filled at your pharmacy, and provide you with referrals for specialist such as Psychiatry. 2). Schedule appointment with Surgeon Dr. Brandi Ames for Wednesday May 16, 2018 by calling his office at [phone] for an appointment for Post Surgical Follow Up. His office is located at [address] in [facility]. 3). Please have the following prescriptions filled at your pharmacy on your way home from the hospital and use as directed: Norvasc 5 mg, 1 tablet by mouth 1x/day at 8 AM, Dispense #30 Oxycodone Immediate Release 5 mg, 1 tablet by mouth ONLY NEEDED every 6 hours for severe pain, Dispense #20 4). You may take a shower but please keep the Ileostomy site and surgical site dry. 5). Please take small bites of food and chew your food thoroughly while eating and do NOT eat until you are full. Advance your diet as tolerated. 6). Please make sure that you are taking Ensure Enlive shakes 3 times a day to supplement breakfast, lunch, and dinner until you are having full meals. 7). You may drink 8 ounces of prune juice once a day if you have not had a bowel movement in 2 days. 8). Stay well hydrated with water. 9). Please make sure to complete the paperwork provided to you by the Chlorinator on the day of your discharge, so that you may receive additional Ileostomy supplies. 10). Please be well and take care of yourself. Vinh Corbett D.O. Objective - Vital Signs/Intake and Output Vital Signs (last 24 hours): Temp Pulse Resp BP Pulse Ox 98.2 F 65 20 113/77 95 05/11/18 08:22 05/11/18 08:22 05/11/18 08:22 05/11/18 08:22 05/11/18 08:22 Intake and Output: 05/11/18 05/11/18 06:59 18:59 Intake Total 950 Output Total 150 Balance 800 - Medications Medications: Current Medications Acetaminophen (Tylenol 325mg Tab) 650 mg PO Q4 PRN PRN Reason: Pain, Mild (1-3) Last Admin: 05/10/18 23:48 Dose: 650 mg Al Hydrox/Mg Hydrox/Simethicone (Maalox 30 Ml) 30 ml PO Q6 PRN PRN Reason: Indigestion / Heartburn Amlodipine Besylate (Norvasc) 5 mg PO DAILY [facility] Last Admin: 05/11/18 09:51 Dose: 5 mg Heparin Sodium (Porcine) (Heparin) 5,000 units SC Q8 [facility] Last Admin: 05/11/18 05:27 Dose: 5,000 units Hydromorphone HCl (Dilaudid) 0.5 mg IVP Q12H PRN PRN Reason: Pain, severe (8-10) Piperacillin Sod/Tazobactam Sod (Zosyn 3.375 Gm Iv Premix) 3.375 gm in 50 mls @ 100 mls/hr IVPB Q6H [facility]; Protocol Last Admin: 05/11/18 09:51 Dose: 100 mls/hr Metronidazole (Flagyl) 500 mg in 100 mls @ 100 mls/hr IVPB Q8H [facility]; Protocol Last Admin: 05/11/18 02:35 Dose: 100 mls/hr Ondansetron HCl (Zofran Inj) 4 mg IVP Q8 PRN PRN Reason: Nausea/Vomiting Last Admin: 05/10/18 08:58 Dose: 4 mg Oxycodone HCl (Oxycodone Immediate Release Tab) 5 mg PO Q4 PRN PRN Reason: Pain, moderate (4-7) Last Admin: 05/10/18 21:50 Dose: 5 mg Pantoprazole Sodium (Protonix Inj) 40 mg IVP Q12H [facility] Last Admin: 05/11/18 09:51 Dose: 40 mg - Labs Labs: 05/11/18 07:00 05/11/18 07:00 PT 15.5 SECONDS (9.7-12.2) H 05/04/18 07:04 INR 1.4 05/04/18 07:04 APTT 35 SECONDS (21-34) H 05/01/18 11:45
--- NOTE | 2018-05-11 11:44 | CP.PCM.DIS ---
<Jada Morales - Last Filed: 05/11/18 19:22> Provider - Provider Date of Admission: 04/30/18 23:24 Attending physician: Vinh Corbett MD Primary care physician: Dr. Mendes Consults: 05/01/18 07:44 General Surgery Consult Routine Comment: Consulting Provider: Dank Ames Consulting Physician: Dank Ames Reason for Consult: diverticulitis phlegmon formation on ct 05/01/18 10:26 Physician Consult Routine Comment: Consulting Provider: Tushar Mota Consulting Physician: Tushar Mota Reason for Consult: diverticulitis, phlegmon, gastritis Additional Comments: Patient has had endoscopy with Dr. Valentin 2 years ago, did not follow up. Patient has never had colonoscopy. 05/04/18 15:09 Wound Care [Nursing Referral for Wound Care] Routine Comment: Physician Instructions: NEED EDUCATION Reason For Exam: NEW ILEOSTOMY PATIENT 05/05/18 13:53 Infectious Disease Consult Routine Comment: perf diverticulitis s/p sigmoid resection, diverti Consulting Provider: Jordan Wong Consulting Physician: Jordan Wong Reason for Consult: increased leukocytosis Time Spent in preparation of Discharge (in minutes): 40 Diagnosis - Discharge Diagnosis (1) Diverticulitis of colon with perforation Status: Acute (2) History of gastritis Status: Chronic (3) Leukocytosis Status: Acute (4) History of hypertension Status: Chronic (5) History of obesity Status: Chronic (6) History of impaired glucose tolerance Status: Chronic (7) History of depression Status: Chronic Hospital Course - Lab Results Lab Results: Micro Results 05/05/18 14:20 Blood Blood Culture - Final NO GROWTH AFTER 5 DAYS 05/05/18 14:20 Blood Gram Stain - Final TEST NOT PERFORMED 05/05/18 15:00 Blood Blood Culture - Final NO GROWTH AFTER 5 DAYS 05/05/18 15:00 Blood Gram Stain - Final TEST NOT PERFORMED 05/01/18 06:10 Blood-Venous Blood Culture - Final NO GROWTH AFTER 5 DAYS 05/01/18 06:10 Blood-Venous Gram Stain - Final TEST NOT PERFORMED 05/01/18 06:07 Blood-Venous Blood Culture - Final NO GROWTH AFTER 5 DAYS 05/01/18 06:07 Blood-Venous Gram Stain - Final TEST NOT PERFORMED 05/02/18 14:47 Stool Stool Culture - Final NO SALMONELLA, SHIGELLA OR CAMPYLOBACTER ISOLATED. 05/02/18 14:47 Stool Ova and Parasite Concentrate Exam - Final 05/01/18 00:51 Urine,Clean Catch Urine Culture - Final No Growth (<1,000 CFU/ML) Most Recent Lab Values WBC 12.4 K/uL (4.8-10.8) H 05/11/18 07:00 RBC 4.90 Mil/uL (3.80-5.20) 05/11/18 07:00 Hgb 14.7 g/dL (11.0-16.0) 05/11/18 07:00 Hct 44.5 % (34.0-47.0) 05/11/18 07:00 MCV 90.7 fL (81.0-99.0) 05/11/18 07:00 MCH 30.0 pg (27.0-31.0) 05/11/18 07:00 MCHC 33.0 g/dL (33.0-37.0) 05/11/18 07:00 RDW 14.0 % (11.5-14.5) 05/11/18 07:00 Plt Count 495 K/uL (130-400) H 05/11/18 07:00 MPV 9.3 fL (7.2-11.7) 05/11/18 07:00 Neut % (Auto) 66.4 % (50.0-75.0) 05/11/18 07:00 Lymph % (Auto) 21.6 % (20.0-40.0) 05/11/18 07:00 [place] % (Auto) 8.6 % (0.0-10.0) 05/11/18 07:00 Eos % (Auto) 3.1 % (0.0-4.0) 05/11/18 07:00 Baso % (Auto) 0.3 % (0.0-2.0) 05/11/18 07:00 Neut # (Auto) 8.2 K/uL (1.8-7.0) H 05/11/18 07:00 Lymph # (Auto) 2.7 K/uL (1.0-4.3) 05/11/18 07:00 [place] # (Auto) 1.1 K/uL (0.0-0.8) H 05/11/18 07:00 Eos # (Auto) 0.4 K/uL (0.0-0.7) 05/11/18 07:00 Baso # (Auto) 0.0 K/uL (0.0-0.2) 05/11/18 07:00 Neutrophils % (Manual) 86 % (50-75) H 05/05/18 07:51 Band Neutrophils % 1 % (0-2) 05/04/18 07:04 Lymphocytes % (Manual) 5 % (20-40) L 05/05/18 07:51 Monocytes % (Manual) 9 % (0-10) 05/05/18 07:51 Platelet Estimate Normal (NORMAL) 05/05/18 07:51 Large Platelets Present 05/04/18 07:04 RBC Morphology Normal 05/05/18 07:51 Poikilocytosis (manual Slight 05/04/18 07:04 Anisocytosis (manual) Slight 05/04/18 07:04 PT 15.5 SECONDS (9.7-12.2) H 05/04/18 07:04 INR 1.4 05/04/18 07:04 APTT 35 SECONDS (21-34) H 05/01/18 11:45 Sodium 133 mmol/L (132-148) 05/11/18 07:00 Potassium 4.4 mmol/L (3.6-5.2) 05/11/18 07:00 Chloride 97 mmol/L (98-107) L 05/11/18 07:00 Carbon Dioxide 30 mmol/L (22-30) 05/11/18 07:00 Anion Gap 10 (10-20) 05/11/18 07:00 BUN 14 mg/dL (7-17) 05/11/18 07:00 Creatinine 0.7 mg/dL (0.7-1.2) 05/11/18 07:00 Est GFR ( Amer) > 60 05/11/18 07:00 Est GFR (Non-Af Amer) > 60 05/11/18 07:00 Random Glucose 108 mg/dL (65-105) H 05/11/18 07:00 Hemoglobin A1c 6.2 % (4.2-6.5) 05/02/18 07:46 Lactic Acid 0.7 mmol/L (0.7-2.1) 05/02/18 23:07 Calcium 9.3 mg/dl (8.6-10.4) 05/11/18 07:00 Phosphorus 4.0 mg/dL (2.5-4.5) 05/11/18 07:00 Magnesium 2.3 mg/dL (1.6-2.3) 05/11/18 07:00 Total Bilirubin 0.4 mg/dL (0.2-1.3) 05/11/18 07:00 AST 35 U/L (14-36) 05/11/18 07:00 ALT 31 U/L (9-52) 05/11/18 07:00 Alkaline Phosphatase 97 U/L (38-126) 05/11/18 07:00 Total Protein 6.9 g/dL (6.3-8.3) 05/11/18 07:00 Albumin 3.9 g/dL (3.5-5.0) 05/11/18 07:00 Globulin 3.1 gm/dL (2.2-3.9) 05/11/18 07:00 Albumin/Globulin Ratio 1.3 (1.0-2.1) 05/11/18 07:00 Triglycerides 109 mg/dL (0-149) 05/02/18 07:46 Cholesterol 148 mg/dL (0-199) 05/02/18 07:46 LDL Cholesterol Direct 91 mg/dL (0-129) 05/02/18 07:46 HDL Cholesterol 41 mg/dL (30-70) 05/02/18 07:46 Lipase 28 U/L (23-300) 05/01/18 11:45 TSH 3rd Generation 2.01 mIU/L (0.46-4.68) 05/02/18 07:46 Beta HCG, Quant < 2.39 mIU/ML 05/03/18 07:00 Urine Color Yellow (YELLOW) 04/30/18 18:14 Urine Clarity Hazy (Clear) 04/30/18 18:14 Urine pH 7.0 (5.0-8.0) 04/30/18 18:14 Ur Specific [place] 1.018 (1.003-1.030) 04/30/18 18:14 Urine Protein Negative mg/dL (NEGATIVE) 04/30/18 18:14 Urine Glucose (UA) Normal mg/dL (Normal) 04/30/18 18:14 Urine Ketones Negative mg/dL (NEGATIVE) 04/30/18 18:14 Urine Blood Negative (NEGATIVE) 04/30/18 18:14 Urine Nitrate Negative (NEGATIVE) 04/30/18 18:14 Urine Bilirubin Negative (NEGATIVE) 04/30/18 18:14 Urine Urobilinogen Normal mg/dL (0.2-1.0) 04/30/18 18:14 Ur Leukocyte Esterase Neg Meena/uL (Negative) 04/30/18 18:14 Urine WBC (Auto) < 1 /hpf (0-5) 04/30/18 18:14 Urine RBC (Auto) 1 /hpf (0-3) 04/30/18 18:14 Ur Squamous Epith Cells 1 /hpf (0-5) 04/30/18 18:14 Urine Bacteria Rare (<OCC) 04/30/18 18:14 Urine HCG, Qual Negative (NEGATIVE) 04/30/18 18:14 Stool Occult Blood Negative (NEGATIVE) 05/01/18 20:05 Stool Leukocytes, Qual Positive (NEGATIVE) H 05/02/18 14:47 Influenza Typ A,B (EIA) Negative for flu a/b (NEGATIVE) 04/30/18 19:27 Blood Type A POSITIVE 05/03/18 10:57 Antibody Screen Negative 05/03/18 10:57 - Hospital Course Hospital Course: On admission: Patient is a 52 year old female with PMHx HTN who presents with 3 days of abdominal pain. Patient states she has been having abdominal pain x3 days, worse in LLQ, denies n/v/d/c. Pain has been constant, and worsened, prompiting patient to present to ED. She also reports subjective fevers/chills which began today. She reports increased bloating and cramping pain. Reports last BM yesterday morning was normal, without diarrhea, blood, or changes in color. Pt without prior history of diverticulitis, has not had pain like this in the past. Patient has been tolerating regular diet. Patient does also report that over the past year she has felt more fatigued, with weight gain, and occasional myalgias, though no acute changes. Hospital course: Patient was admitted for acute diverticulitis with sigmoid colon perforation, phlegmon and subsequent ileostomy. Initial imaging revealed acute uncomplicated sigmoid diverticulitis. After patient complained of severe abdominal pain, repeat CT abdomen was ordered which revealed intraabdominal air suggestive of perforated acute diverticulitis with phlegmon. Surgeon Dr. Ames was consulted who performed resection of the sigmoid colon, primary colon anastomoses, diverticular bleed ileostomy. After her surgery, her diet was slowly advanced and upon discharge, she was able to tolerate Ensure Enlive. She was producing stool through the ileostomy bag. She was educated on how to change her ileostomy bags prior to discharge. During her admission, she was treated with Zosyn and Flagyl, however did not require further antibiotics on discharge. Blood cultures, stool cultures and urine cultures were negative for growth. Patient has a history of hypertension, for which she was given Norvasc. Patient has a history of obesity and impaired glucose tolerance. Her A1c was 6.2 and she was advised on the need for diet modification. Patient has a history of depression, but she stopped taking her antidepressant. Upon discharge, patient was not depressed with no suicidal or homicidal thoughts. Imaging: CT abdomen/pelvis (04/30): Acute uncomplicated sigmoid diverticulitis. Severe circumferential mural thickening in the gastric pylorus is nonspecific could be correlated to nonspecific gastritis. Mild hepatomegaly and fatty liver. CT abdomen/pelvis (05/02): Results including prominent focal thickening of the sigmoid colon with associated diverticuli as well as prominent adjacent mesenteric fat stranding and fluid suggestive for acute diverticulitis intra- abdominal with adjacent foci of free air suggestive of a perforated acute diverticulitis. Posterior to the sigmoid colon is a suggestion of a developing collection 3.7 x 2.6 cm adjacent soft tissue calcification 8 mm. Free intraperitoneal air noted within the upper abdomen fatty infiltration of the rupa er Discharge instructions: The following instructions were explained to patient and a copy will need to be provided to the patient upon discharge: 1). Please schedule medical care with the [facility] located on Floor B of [facility] on [address] in [facility] by calling [phone] for an appointment to take place in the next 7 to 10 days. They will be your primary care physicians that will help to coordinate your health care, provide you with future prescriptions that you will need to have filled at your pharmacy, and provide you with referrals for specialist such as Psychiatry. 2). Schedule appointment with Surgeon Dr. Brandi Ames for Wednesday May 16, 2018 by calling his office at [phone] for an appointment for Post Surgical Follow Up. His office is located at [address] [place] [address] [address] in [facility]. 3). Please have the following prescriptions filled at your pharmacy on your way home from the hospital and use as directed: Norvasc 5 mg, 1 tablet by mouth 1x/day at 8 AM, Dispense #30 Oxycodone Immediate Release 5 mg, 1 tablet by mouth ONLY NEEDED every 6 hours for severe pain, Dispense #20 Omeprazole 40 mg, 1 tablet by mouth 1x/day at 8 AM, Dispense #30 4). You may take a shower but please keep the Ileostomy site and surgical site dry. 5). Please take small bites of food and chew your food thoroughly while eating and do NOT eat until you are full. Advance your diet as tolerated. 6). Please make sure that you are taking Ensure Enlive shakes 3 times a day to supplement breakfast, lunch, and dinner until you are having full meals. 7). You may drink 8 ounces of prune juice once a day if you have not had a bowel movement in 2 days. 8). Stay well hydrated with water. 9). Please make sure to complete the paperwork provided to you by the [employer] on the day of your discharge, so that you may receive additional Ileostomy supplies. 10). Please be well and take care of yourself. Discharge Exam - Head Exam Head Exam: ATRAUMATIC, NORMOCEPHALIC - Eye Exam Eye Exam: EOMI, PERRL - ENT Exam ENT Exam: Mucous Membranes Moist - Respiratory Exam Respiratory Exam: Clear to PA & Lateral, NORMAL BREATHING PATTERN. absent: Rales, Rhonchi, Wheezes, Respiratory Distress, Stridor - Cardiovascular Exam Cardiovascular Exam: REGULAR RHYTHM, +S1, +S2. absent: Gallop, Rubs, Systolic Murmur - GI/Abdominal Exam Additional comments: [place] in place without any indication of dehiscence Ileostomy in place with stool in bag Dressing on left abdomen clean dry intact. - Extremities Exam Extremities exam: pedal pulses present - Back Exam Back exam: absent: CVA tenderness (L), CVA tenderness (R) - Neurological Exam Neurological exam: Alert, Oriented x3 - Psychiatric Exam Psychiatric exam: Normal Affect, Normal Mood - Skin Skin Exam: Dry, Intact, Warm Discharge Plan - Discharge Medications Prescriptions: amLODIPine [Norvasc] 5 mg PO DAILY #30 tab Omeprazole 40 mg PO DAILY #[address] capsule[address] SolisDONAlexi [oxyCODONE Immediate Release Tab] 5 mg PO Q4 PRN #20 tab PRN Reason: Pain, Severe (8-10) - Follow Up Plan Condition: STABLE Disposition: HOME/ ROUTINE Instructions: How to Care for Your Ostomy, Adult, Diverticulitis (DC), Ileostomy Care, Amlodipine, Omeprazole, Oxycodone, Ileostomy Diet Additional Instructions: The following instructions were explained to patient and a copy will need to be provided to the patient upon discharge: 1). Please schedule medical care with the [facility] located on [address] of [facility] on [address] in [facility] by calling [phone] for an appointment to take place in the next 7 to 10 days. They will be your primary care physicians that will help to coordinate your health care, provide you with future prescriptions that you will need to have filled at your pharmacy, and provide you with referrals for specialist such as Psychiatry. 2). Schedule appointment with Surgeon Dr. Brandi Ames for Wednesday May 16, 2018 by calling his office at [phone] for an appointment for Post Surgical Follow Up. His office is located at [address] in [facility]. 3). Please have the following prescriptions filled at your pharmacy on your way home from the hospital and use as directed: Norvasc 5 mg, 1 tablet by mouth 1x/day at 8 AM, Dispense #30 Oxycodone Immediate Release 5 mg, 1 tablet by mouth ONLY NEEDED every 6 hours for severe pain, Dispense #20 Omeprazole 40 mg, 1 tablet by mouth 1x/day at 8 AM, Dispense #30 4). You may take a shower but please keep the Ileostomy site and surgical site dry. 5). Please take small bites of food and chew your food thoroughly while eating and do NOT eat until you are full. Advance your diet as tolerated. 6). Please make sure that you are taking Ensure Enlive shakes 3 times a day to supplement breakfast, lunch, and dinner until you are having full meals. 7). You may drink 8 ounces of prune juice once a day if you have not had a bowel movement in 2 days. 8). Stay well hydrated with water. 9). Please make sure to complete the paperwork provided to you by the [employer] on the day of your discharge, so that you may receive additional Ileostomy supplies. 10). Please be well and take care of yourself. Referrals: [facility] [Outside] - 05/31/18 1:00 pm Dank Ames MD [Staff Provider] - Tushar Mota MD [Staff Provider] - <Vinh Corbett - Last Filed: 05/12/18 17:20> Provider - Provider Date of Admission: 04/30/18 23:24 Attending physician: Vinh Corbett MD Consults: 05/01/18 07:44 General Surgery Consult Routine Comment: Consulting Provider: Dank Ames Consulting Physician: Dank Ames Reason for Consult: diverticulitis phlegmon formation on ct 05/01/18 10:26 Physician Consult Routine Comment: Consulting Provider: Tushar Mota Consulting Physician: Tushar Mota Reason for Consult: diverticulitis, phlegmon, gastritis Additional Comments: Patient has had endoscopy with Dr. Valentin 2 years ago, did not follow up. Patient has never had colonoscopy. 05/04/18 15:09 Wound Care [Nursing Referral for Wound Care] Routine Comment: Physician Instructions: NEED EDUCATION Reason For Exam: NEW ILEOSTOMY PATIENT 05/05/18 13:53 Infectious Disease Consult Routine Comment: perf diverticulitis s/p sigmoid resection, diverti Consulting Provider: Jordan Wong Consulting Physician: Jordan Wong Reason for Consult: increased leukocytosis Hospital Course - Lab Results Lab Results: Micro Results 05/05/18 14:20 Blood Blood Culture - Final NO GROWTH AFTER 5 DAYS 05/05/18 14:20 Blood Gram Stain - Final TEST NOT PERFORMED 05/05/18 15:00 Blood Blood Culture - Final NO GROWTH AFTER 5 DAYS 05/05/18 15:00 Blood Gram Stain - Final TEST NOT PERFORMED 05/01/18 06:10 Blood-Venous Blood Culture - Final NO GROWTH AFTER 5 DAYS 05/01/18 06:10 Blood-Venous Gram Stain - Final TEST NOT PERFORMED 05/01/18 06:07 Blood-Venous Blood Culture - Final NO GROWTH AFTER 5 DAYS 05/01/18 06:07 Blood-Venous Gram Stain - Final TEST NOT PERFORMED 05/02/18 14:47 Stool Stool Culture - Final NO SALMONELLA, SHIGELLA OR CAMPYLOBACTER ISOLATED. 05/02/18 14:47 Stool Ova and Parasite Concentrate Exam - Final 05/01/18 00:51 Urine,Clean Catch Urine Culture - Final No Growth (<1,000 CFU/ML) Most Recent Lab Values WBC 12.4 K/uL (4.8-10.8) H 05/11/18 07:00 RBC 4.90 Mil/uL (3.80-5.20) 05/11/18 07:00 Hgb 14.7 g/dL (11.0-16.0) 05/11/18 07:00 Hct 44.5 % (34.0-47.0) 05/11/18 07:00 MCV 90.7 fL (81.0-99.0) 05/11/18 07:00 MCH 30.0 pg (27.0-31.0) 05/11/18 07:00 MCHC 33.0 g/dL (33.0-37.0) 05/11/18 07:00 RDW 14.0 % (11.5-14.5) 05/11/18 07:00 Plt Count 495 K/uL (130-400) H 05/11/18 07:00 MPV 9.3 fL (7.2-11.7) 05/11/18 07:00 Neut % (Auto) 66.4 % (50.0-75.0) 05/11/18 07:00 Lymph % (Auto) 21.6 % (20.0-40.0) 05/11/18 07:00 [place] % (Auto) 8.6 % (0.0-10.0) 05/11/18 07:00 Eos % (Auto) 3.1 % (0.0-4.0) 05/11/18 07:00 Baso % (Auto) 0.3 % (0.0-2.0) 05/11/18 07:00 Neut # (Auto) 8.2 K/uL (1.8-7.0) H 05/11/18 07:00 Lymph # (Auto) 2.7 K/uL (1.0-4.3) 05/11/18 07:00 [place] # (Auto) 1.1 K/uL (0.0-0.8) H 05/11/18 07:00 Eos # (Auto) 0.4 K/uL (0.0-0.7) 05/11/18 07:00 Baso # (Auto) 0.0 K/uL (0.0-0.2) 05/11/18 07:00 Neutrophils % (Manual) 63 % (50-75) 05/11/18 07:00 Band Neutrophils % 1 % (0-2) 05/04/18 07:04 Lymphocytes % (Manual) 22 % (20-40) 05/11/18 07:00 Monocytes % (Manual) 7 % (0-10) 05/11/18 07:00 Eosinophils % (Manual) 4 % (0-4) 05/11/18 07:00 Myelocytes % 4 % (0-0) H 05/11/18 07:00 Platelet Estimate Normal (NORMAL) 05/11/18 07:00 Large Platelets Present 05/04/18 07:04 RBC Morphology Normal 05/11/18 07:00 Poikilocytosis (manual Slight 05/04/18 07:04 Anisocytosis (manual) Slight 05/04/18 07:04 PT 15.5 SECONDS (9.7-12.2) H 05/04/18 07:04 INR 1.4 05/04/18 07:04 APTT 35 SECONDS (21-34) H 05/01/18 11:45 Sodium 133 mmol/L (132-148) 05/11/18 07:00 Potassium 4.4 mmol/L (3.6-5.2) 05/11/18 07:00 Chloride 97 mmol/L (98-107) L 05/11/18 07:00 Carbon Dioxide 30 mmol/L (22-30) 05/11/18 07:00 Anion Gap 10 (10-20) 05/11/18 07:00 BUN 14 mg/dL (7-17) 05/11/18 07:00 Creatinine 0.7 mg/dL (0.7-1.2) 05/11/18 07:00 Est GFR ( Amer) > 60 05/11/18 07:00 Est GFR (Non-Af Amer) > 60 05/11/18 07:00 Random Glucose 108 mg/dL (65-105) H 05/11/18 07:00 Hemoglobin A1c 6.2 % (4.2-6.5) 05/02/18 07:46 Lactic Acid 0.7 mmol/L (0.7-2.1) 05/02/18 23:07 Calcium 9.3 mg/dl (8.6-10.4) 05/11/18 07:00 Phosphorus 4.0 mg/dL (2.5-4.5) 05/11/18 07:00 Magnesium 2.3 mg/dL (1.6-2.3) 05/11/18 07:00 Total Bilirubin 0.4 mg/dL (0.2-1.3) 05/11/18 07:00 AST 35 U/L (14-36) 05/11/18 07:00 ALT 31 U/L (9-52) 05/11/18 07:00 Alkaline Phosphatase 97 U/L (38-126) 05/11/18 07:00 Total Protein 6.9 g/dL (6.3-8.3) 05/11/18 07:00 Albumin 3.9 g/dL (3.5-5.0) 05/11/18 07:00 Globulin 3.1 gm/dL (2.2-3.9) 05/11/18 07:00 Albumin/Globulin Ratio 1.3 (1.0-2.1) 05/11/18 07:00 Triglycerides 109 mg/dL (0-149) 05/02/18 07:46 Cholesterol 148 mg/dL (0-199) 05/02/18 07:46 LDL Cholesterol Direct 91 mg/dL (0-129) 05/02/18 07:46 HDL Cholesterol 41 mg/dL (30-70) 05/02/18 07:46 Lipase 28 U/L (23-300) 05/01/18 11:45 TSH 3rd Generation 2.01 mIU/L (0.46-4.68) 05/02/18 07:46 Beta HCG, Quant < 2.39 mIU/ML 05/03/18 07:00 Urine Color Yellow (YELLOW) 04/30/18 18:14 Urine Clarity Hazy (Clear) 04/30/18 18:14 Urine pH 7.0 (5.0-8.0) 04/30/18 18:14 Ur Specific [place] 1.018 (1.003-1.030) 04/30/18 18:14 Urine Protein Negative mg/dL (NEGATIVE) 04/30/18 18:14 Urine Glucose (UA) Normal mg/dL (Normal) 04/30/18 18:14 Urine Ketones Negative mg/dL (NEGATIVE) 04/30/18 18:14 Urine Blood Negative (NEGATIVE) 04/30/18 18:14 Urine Nitrate Negative (NEGATIVE) 04/30/18 18:14 Urine Bilirubin Negative (NEGATIVE) 04/30/18 18:14 Urine Urobilinogen Normal mg/dL (0.2-1.0) 04/30/18 18:14 Ur Leukocyte Esterase Neg Meena/uL (Negative) 04/30/18 18:14 Urine WBC (Auto) < 1 /hpf (0-5) 04/30/18 18:14 Urine RBC (Auto) 1 /hpf (0-3) 04/30/18 18:14 Ur Squamous Epith Cells 1 /hpf (0-5) 04/30/18 18:14 Urine Bacteria Rare (<OCC) 04/30/18 18:14 Urine HCG, Qual Negative (NEGATIVE) 04/30/18 18:14 Stool Occult Blood Negative (NEGATIVE) 05/01/18 20:05 Stool Leukocytes, Qual Positive (NEGATIVE) H 05/02/18 14:47 Influenza Typ A,B (EIA) Negative for flu a/b (NEGATIVE) 04/30/18 19:27 Blood Type A POSITIVE 05/03/18 10:57 Antibody Screen Negative 05/03/18 10:57 Attending/Attestation - Attestation I have personally seen and examined this patient.: Yes I have fully participated in the care of the patient.: Yes I have reviewed all pertinent clinical information, including history, physical exam and plan: Yes Notes (Text): 05/12/18 17:19 This is a late entry. Care of this patient and discharge instructions were gone over in detail with resident Dr. Morales. All discharge instructions were gone over thoroughly with patient by me at the time of her discharge. Vinh Corbett D.O.
[2018-05-11 12:38] LABS: LYMPHOCYTE 22 % (20-40); MONOCYTE 7 % (0-10); NEUTROPHIL 63 % (50-75); TOTAL CELLS COUNTED 100
[2018-05-11 12:39] LABS: EOSINOPHIL 4 % (0-4); MYELOCYTE 4 % (0-0); PLATELET ESTIMATE NORMAL (NORMAL)
== END 2018-05-11 14:00 | disposition home or self-care (01) | DRG 221 ==
LOC: C.ER 17:33 → C.9E 23:24 → C.5S 05-01 13:24
PROVIDERS: ADMIT Family Medicine; ATTEND Family Medicine
PROC: 0DNU0ZZ Release Omentum, Open Approach (ICD-10-PCS; 2018-05-03)
PROC: 0DTN0ZZ Resection of Sigmoid Colon, Open Approach (ICD-10-PCS; principal; 2018-05-03 11:45)
PROC: 0D1B0Z4 Bypass Ileum to Cutaneous, Open Approach (ICD-10-PCS; 2018-05-03 11:45)
DX: K57.21 Diverticulitis of large intestine with perforation and abscess with bleeding (principal); E66.01 Morbid (severe) obesity due to excess calories; K76.0 Fatty (change of) liver, not elsewhere classified; K56.7 Ileus, unspecified; I10 Essential (primary) hypertension; F41.9 Anxiety disorder, unspecified; F12.90 Cannabis use, unspecified, uncomplicated; G47.00 Insomnia, unspecified; N73.9 Female pelvic inflammatory disease, unspecified; K29.70 Gastritis, unspecified, without bleeding; Z87.891 Personal history of nicotine dependence; D72.829 Elevated white blood cell count, unspecified; Z53.31 Laparoscopic surgical procedure converted to open procedure; Z68.30 Body mass index [BMI] 30.0-30.9, adult

== ENCOUNTER 2018-05-21 10:23 | Emergency (ER) | payer MEDICAID ==
[2018-05-21 10:23] VITALS: BMI 29.1
[2018-05-21 10:29] VITALS: PULSE 85; RESP 20; TEMP 97.9; O2SAT 100
--- NOTE | 2018-05-21 10:39 | C.PDOC ---
History Of Present Illness 52 year old female presents to the emergency department stating that she has run out of colostomy bags. Patient has a history of diverticulitis with a colon resection performed last week. Patient was discharged with a few bags but states that she did not reach her PMD to obtain a new prescription. In the ED, patient denies pain and vomiting. Time Seen by Provider: 05/21/18 10:30 Chief Complaint (Nursing): Abdominal Pain History Per: Patient History/Exam Limitations: no limitations Onset/Duration Of Symptoms: Other (1 week) Current Symptoms Are (Timing): Still Present Radiation Of Pain To:: None Associated Symptoms: denies: Vomiting, Other (abdominal pain) Past Medical History Reviewed: Historical Data, Nursing Documentation, Vital Signs Vital Signs: Last Vital Signs Temp 97.9 F 05/21/18 10:27 Pulse 85 05/21/18 10:27 Resp 20 05/21/18 10:27 BP Pulse Ox 100 05/21/18 10:27 - Medical History PMH: Depression, Diverticulitis, HTN Denies: Chronic Kidney Disease Surgical History: Appendectomy, Cholecystectomy - [facility] (04/30/18) BYPASS ILEUM TO CUTANEOUS, OPEN APPROACH (04/30/18) RESECTION OF SIGMOID COLON, OPEN APPROACH (04/30/18) Family History: States: No Known Family Hx - Social History Hx Tobacco Use: No Hx Alcohol Use: Yes Hx Substance Use: No - Immunization History Hx Tetanus Toxoid Vaccination: No Hx Influenza Vaccination: No Hx Pneumococcal Vaccination: No Review Of Systems Except As Marked, All Systems Reviewed And Found Negative. Constitutional: Negative for: Fever, Chills Cardiovascular: Negative for: Chest Pain Respiratory: Negative for: Cough, Shortness of Breath Gastrointestinal: Negative for: Nausea, Vomiting, Abdominal Pain Physical Exam - Physical Exam Appears: Non-toxic, No Acute Distress Skin: Normal Color, Warm, Dry Head: Atraumatic, Normacephalic Eye(s): bilateral: Normal Inspection, PERRL, EOMI Oral Mucosa: Moist Neck: Normal, Supple Cardiovascular: Rhythm Regular, No Murmur Respiratory: Normal Breath Sounds, No Rales, No Rhonchi, No Wheezing Gastrointestinal/Abdominal: Soft, Tenderness (tenderness to the post-op area), No Guarding, No Rebound, Other (colostomy bag filled with normal color stool, no bleeding, suture line intact) Extremity: Normal ROM Neurological/Psych: Oriented x3, Normal Speech, Normal Cognition ED Course And Treatment O2 Sat by Pulse Oximetry: 100 (RA) Pulse Ox Interpretation: Normal Disposition - Disposition Referrals: Dank Ames MD [Staff Provider] - Disposition: HOME/ ROUTINE Disposition Time: 10:40 Condition: STABLE Prescriptions: Colostomy Bags [Closed-End Pouch] 1 each MC DAILY #20 each Instructions: How to Care for Your Ostomy, Adult Forms: General Discharge Instructions, [facility] (Turkmen) - Clinical Impression Clinical Impression: Colostomy care - Scribe Statement The provider has reviewed the documentation as recorded by the Scribe (Vijay Avila) Provider Attestation: All medical record entries made by the Scribe were at my direction and personally dictated by me. I have reviewed the chart and agree that the record accurately reflects my personal performance of the history, physical exam, medical decision making, and the department course for this patient. I have also personally directed, reviewed, and agree with the discharge instructions and disposition.
--- NOTE | 2018-05-21 10:40 | C.PDOC ---
Time Seen by Provider: 05/21/18 10:30 Chief Complaint (Nursing): Abdominal Pain Past Medical History Vital Signs: Last Vital Signs Temp 97.9 F 05/21/18 10:27 Pulse 85 05/21/18 10:27 Resp 20 05/21/18 10:27 BP Pulse Ox 100 05/21/18 10:27 - Medical History PMH: Depression, HTN Denies: Chronic Kidney Disease Surgical History: Appendectomy, Cholecystectomy - [facility] (04/30/18) BYPASS ILEUM TO CUTANEOUS, OPEN APPROACH (04/30/18) RESECTION OF SIGMOID COLON, OPEN APPROACH (04/30/18) Family History: States: Unknown Family Hx - Social History Hx Tobacco Use: No Hx Alcohol Use: Yes Hx Substance Use: No - Immunization History Hx Tetanus Toxoid Vaccination: No Hx Influenza Vaccination: No Hx Pneumococcal Vaccination: No ED Course And Treatment O2 Sat by Pulse Oximetry: 100 Disposition Counseled Patient/Family Regarding: Diagnosis, Need For Followup, Rx Given - Disposition Referrals: Dank Ames MD [Staff Provider] - Disposition: HOME/ ROUTINE Disposition Time: 10:38 Condition: STABLE Prescriptions: Colostomy Bags [Closed-End Pouch] 1 each MC DAILY #20 each Instructions: How to Care for Your Ostomy, Adult Forms: [employer] Connect (Persian), General Discharge Instructions - POA Present On Arrival: None - Clinical Impression Clinical Impression: Colostomy care
== END 2018-05-21 11:37 | disposition home or self-care (01) ==
LOC: C.ER 10:23
DX: Z43.3 Encounter for attention to colostomy (principal)

== ENCOUNTER 2018-06-04 16:52 | Inpatient (IN) | payer SELFPAY ==
[2018-06-04 17:09] VITALS: BMI 29.9
[2018-06-04 17:38] LABS: BASO # 0.1 K/uL (0.0-0.2); BASO % 1.2 % (0.0-2.0); EOS # 0.2 K/uL (0.0-0.7); EOS % 3.4 % (0.0-4.0); HEMOGLOBIN 12.7 g/dL (11.0-16.0); LYMPH # 1.9 K/uL (1.0-4.3); LYMPH % 27.8 % (20.0-40.0); MEAN CELL VOLUME 89.3 fL (81.0-99.0); MEAN CORPUSCULAR HEMOGLOBIN 29.8 pg (27.0-31.0); MEAN CORPUSCULAR HGB CONC 33.4 g/dL (33.0-37.0); MEAN PLATELET VOLUME 8.2 fL (7.2-11.7); MONO # 0.7 K/uL (0.0-0.8); MONO % 10.8 % (0.0-10.0); NEUT # 3.8 K/uL (1.8-7.0); NEUT % 56.8 % (50.0-75.0); RBC 4.25 Mil/uL (3.80-5.20); RED CELL DISTRIBUTION WIDTH 13.7 % (11.5-14.5); WHITE BLOOD COUNT 6.7 K/uL (4.8-10.8)
[2018-06-04 17:51] LABS: ALB/GLOB RATIO 1.5 (1.0-2.1); ALBUMIN 4.2 g/dL (3.5-5.0); ALT/SGPT 22 U/L (9-52); AST/SGOT 29 U/L (14-36); BLOOD UREA NITROGEN 11 mg/dL (7-17); CALCIUM 9.7 mg/dl (8.6-10.4); GFR NON-AFRICAN AMERICAN > 60
[2018-06-04] MEDS ORDERED: Piperacillin/Tazobact 3.375 GM in Sodium Chloride 100 ML IVPB STA (17:51)
--- NOTE | 2018-06-04 17:51 | C.PDOC ---
History Of Present Illness 52 year old female with PMHx of depression, hypertension, and diverticulitis presents to the ED complaining of pain and purulent discharge from surgical wound that began this afternoon status post bowel resection on 04/30/18 for perf orated diverticulitis and colostomy. Reports Dr. Ames is her general surgeron. Denies any fever, nausea, vomiting, or diarrhea. Time Seen by Provider: 06/04/18 17:08 Chief Complaint (Nursing): Abnormal Skin Integrity History Per: Patient History/Exam Limitations: no limitations Onset/Duration Of Symptoms: Hrs Current Symptoms Are (Timing): Still Present Location Of Injury: Left: Abdomen (pain and purulent discharge ) Quality Of Symptoms: Painful, Draining Past Medical History Reviewed: Historical Data, Nursing Documentation, Vital Signs Vital Signs: Last Vital Signs Temp 97.9 F 06/04/18 16:57 Pulse 92 H 06/04/18 16:57 Resp 20 06/04/18 16:57 BP 103/70 06/04/18 16:57 Pulse Ox 96 06/04/18 16:57 - Medical History PMH: Depression, Diverticulitis, HTN Denies: Chronic Kidney Disease Surgical History: Appendectomy, Cholecystectomy - [facility] (04/30/18) BYPASS ILEUM TO CUTANEOUS, OPEN APPROACH (04/30/18) RESECTION OF SIGMOID COLON, OPEN APPROACH (04/30/18) Family History: States: No Known Family Hx - Social History Hx Tobacco Use: No Hx Alcohol Use: Yes Hx Substance Use: No - Immunization History Hx Tetanus Toxoid Vaccination: No Hx Influenza Vaccination: No Hx Pneumococcal Vaccination: No Review Of Systems Constitutional: Negative for: Fever, Chills Gastrointestinal: Positive for: Other (pain and purulent discharged from surgical wound ). Negative for: Nausea, Vomiting, Diarrhea Physical Exam - Physical Exam Appears: Non-toxic, No Acute Distress, Other (comfortable ) Skin: Warm, Dry, No Rash Head: Normacephalic Eye(s): bilateral: Normal Inspection Oral Mucosa: Moist Neck: Supple Chest: Symmetrical Cardiovascular: Rhythm Regular Respiratory: Normal Breath Sounds, No Rales, No Rhonchi, No Wheezing Gastrointestinal/Abdominal: Soft, No Guarding, No Rebound, Other (well healed surgical wound in the left periumbilical area with dehiscence and yellow purulent discharge in the center and tender to palpation. Colostomy with liquid brown stool in the right periumbilical area ) Neurological/Psych: Oriented x3, Normal Speech Gait: Steady ED Course And Treatment - Laboratory Results Result Diagrams: 06/04/18 17:35 06/04/18 17:35 O2 Sat by Pulse Oximetry: 96 (RA) Pulse Ox Interpretation: Normal Progress Note: Blood work, wound culture ordered. 5:50pm- Spoke with patient's surgeon, recommends IV antibiotics, admission to Dr. Marlen Corbett's service. Surgery resident notified. Disposition - Disposition Forms: [facility] [facility] (Cymro) - Scribe Statement The provider has reviewed the documentation as recorded by the Scribe Argenis Castillo All medical record entries made by the Scribe were at my direction and personally dictated by me. I have reviewed the chart and agree that the record accurately reflects my personal performance of the history, physical exam, medical decision making, and the department course for this patient. I have also personally directed, reviewed, and agree with the discharge instructions and disposition.
--- NOTE | 2018-06-04 18:13 | CP.PCM.CON ---
History of Present Illness - History of Present Illness History of Present Illness: General Surgery Dr. Ames Consult: surgical wound infection 52 y/o F w/ PMHx HTN and MDD is s/p Laparoscopic, converted to open, sigmoidectomy w/ diverting loop ileostomy on 05/03 for perforated diverticulitis. Pt presents to the ED c/o drainage from surgical site. Pt states first noticed skin "bubble" at mid-point of midline incision 4-5days NUT [employer]. "Bubble"/boil unchanged until this morning/afternoon when pt felt fluid draining down her side. At that time, pt noticed boil has popped and was draining non-odorous fluid. Pt also reports that earlier in the week she had a lump present at superior aspect of wound that has not disappeared after drainage started. Pt called Dr. Ames who instructed pt to come to the ED for evaluation. Pt denies F/C, N/V, D/C. Pt does admit to recent URI w/ dry cough and nasal congestion. Pt has had normal ostomy function. PMHx: see above, anxiety, chronic body pain Meds: reviewed in chart NKDA PSHx: lap appy (1988), lap paresh (2004), tubal ligation (1989), L ankle surgery (2018), sigmoidectomy w/ diverting loop ileostomy SHx: denies tobacco, EtOH use; admits to marijuana use FHx:noncontributory Review of Systems - Review of Systems All systems: reviewed and no additional remarkable complaints except (see HPI) Past Patient History - Infectious Disease Hx of Infectious Diseases: None - Past Medical History & Family History Past Medical History?: Yes - Past Social History Smoking Status: Former Smoker - CARDIAC Hx Hypertension: Yes - PULMONARY Hx Respiratory Disorders: No - HEENT Hx HEENT Problems: No - RENAL Hx Chronic Kidney Disease: No - ENDOCRINE/METABOLIC Hx Endocrine Disorders: No - HEMATOLOGICAL/ONCOLOGICAL Hx Blood Disorders: No - INTEGUMENTARY Hx Dermatological Problems: No - MUSCULOSKELETAL/RHEUMATOLOGICAL Hx Musculoskeletal Disorders: No Other/Comment: sciatica - GASTROINTESTINAL Hx Diverticulitis: Yes - GENITOURINARY/GYNECOLOGICAL Hx Genitourinary Disorders: No - PSYCHIATRIC Hx Depression: Yes Hx Substance Use: No - SURGICAL HISTORY Hx Appendectomy: Yes Hx Cholecystectomy: Yes - ANESTHESIA Hx Anesthesia: Yes Hx Anesthesia Reactions: No Meds Allergies/Adverse Reactions: Allergies Allergy/AdvReac Type Severity Reaction Status Date / Time No Known Allergies Allergy Verified 06/04/18 16:55 - Medications Medications: Current Medications Piperacillin Sod/Tazobactam (Sod 3.375 gm/ Sodium Chloride) 100 mls @ 200 mls/hr IVPB Q8H [facility]; Protocol Stop: 06/04/18 18:20 Physical Exam - Constitutional Appears: Non-toxic, No Acute Distress - Head Exam Head Exam: NORMAL INSPECTION - Eye Exam Eye Exam: Normal appearance - ENT Exam ENT Exam: Mucous Membranes Moist - Respiratory Exam Respiratory Exam: NORMAL BREATHING PATTERN. absent: Accessory Muscle Use, Respiratory Distress - Cardiovascular Exam Cardiovascular Exam: REGULAR RHYTHM. absent: Bradycardia, Tachycardia - GI/Abdominal Exam GI & Abdominal Exam: Soft. absent: Distended, Firm, Guarding, Tenderness Additional comments: spontaneous midline incision w/ seropurulent drainage ostomy appliance w/ stool present no erythema, induration, fluctuance palpabale - Extremities Exam Extremities exam: Positive for: normal inspection - Neurological Exam Neurological exam: Alert, Oriented x3 - Psychiatric Exam Psychiatric exam: Normal Affect, Normal Mood - Skin Skin Exam: Dry, Normal Color, Warm Results - Vital Signs Recent Vital Signs: Last Vital Signs Temp 97.9 F 06/04/18 16:57 Pulse 92 H 06/04/18 16:57 Resp 20 06/04/18 16:57 BP 103/70 06/04/18 16:57 Pulse Ox 96 06/04/18 17:56 - Labs Result Diagrams: 06/04/18 17:35 06/04/18 17:35 Labs: Laboratory Results - last 24 hr 06/04/18 06/04/18 17:35 17:35 WBC 6.7 RBC 4.25 Hgb 12.7 D Hct 37.9 MCV 89.3 MCH 29.8 MCHC 33.4 RDW 13.7 Plt Count 362 D MPV 8.2 Neut % (Auto) 56.8 Lymph % (Auto) 27.8 [place] % (Auto) 10.8 H Eos % (Auto) 3.4 Baso % (Auto) 1.2 Neut # (Auto) 3.8 Lymph # (Auto) 1.9 [place] # (Auto) 0.7 Eos # (Auto) 0.2 Baso # (Auto) 0.1 Sodium 138 Potassium 4.5 Chloride 101 Carbon Dioxide 32 H Anion Gap 10 BUN 11 Creatinine 0.6 L Est GFR ( Amer) > 60 Est GFR (Non-Af Amer) > 60 Random Glucose 89 Calcium 9.7 Total Bilirubin 0.3 AST 29 ALT 22 Alkaline Phosphatase 72 Total Protein 7.1 Albumin 4.2 Globulin 2.9 Albumin/Globulin Ratio 1.5 Assessment & Plan - Assessment and Plan (Free Text) Assessment: 52 y/o F w/ surgical wound s/p sigmoidectomy w/ diverting loop ileostomy Plan: - f/u Wound Cx - IV Abx - daily dressing changes - warm compresses - monitor ostomy output - encourage OOB to chair/Amb Pt discussed w/ Dr. Hui [place] PGY3
[2018-06-04] MEDS: Piperacill/Tazo 3.375gm in Dex 3.375 GM/50 ML BAG IVPB SCH (19:00)
[2018-06-04 19:27] VITALS: RESP 20
--- NOTE | 2018-06-04 22:35 | CP.PCM.HP ---
Present on Admission - Present on Admission Any Indicators Present on Admission: No Past Patient History - Infectious Disease Hx of Infectious Diseases: None - Past Medical History & Family History Past Medical History?: Yes - Past Social History Smoking Status: Unknown If Ever Smoked - CARDIAC Hx Hypertension: Yes - PULMONARY Hx Respiratory Disorders: No - HEENT Hx HEENT Problems: No - RENAL Hx Chronic Kidney Disease: No - ENDOCRINE/METABOLIC Hx Endocrine Disorders: No - HEMATOLOGICAL/ONCOLOGICAL Hx Blood Disorders: No - INTEGUMENTARY Hx Dermatological Problems: No - MUSCULOSKELETAL/RHEUMATOLOGICAL Hx Musculoskeletal Disorders: No Other/Comment: sciatica - GASTROINTESTINAL Hx Diverticulitis: Yes - GENITOURINARY/GYNECOLOGICAL Hx Genitourinary Disorders: No - PSYCHIATRIC Hx Substance Use: No - SURGICAL HISTORY Hx Appendectomy: Yes Hx Cholecystectomy: Yes - ANESTHESIA Hx Anesthesia: Yes Hx Anesthesia Reactions: No Meds Allergies/Adverse Reactions: Allergies Allergy/AdvReac Type Severity Reaction Status Date / Time No Known Allergies Allergy Verified 06/04/18 16:55 Results - Vital Signs Recent Vital Signs: Last Vital Signs Temp 97.7 F 06/04/18 19:26 Pulse 78 06/04/18 19:26 Resp 20 06/04/18 19:26 BP 104/71 06/04/18 19:26 Pulse Ox 98 06/04/18 19:26 - Labs Result Diagrams: 06/04/18 17:35 06/04/18 17:35 Labs: Laboratory Results - last 24 hr 06/04/18 06/04/18 17:35 17:35 WBC 6.7 RBC 4.25 Hgb 12.7 D Hct 37.9 MCV 89.3 MCH 29.8 MCHC 33.4 RDW 13.7 Plt Count 362 D MPV 8.2 Neut % (Auto) 56.8 Lymph % (Auto) 27.8 [place] % (Auto) 10.8 H Eos % (Auto) 3.4 Baso % (Auto) 1.2 Neut # (Auto) 3.8 Lymph # (Auto) 1.9 [place] # (Auto) 0.7 Eos # (Auto) 0.2 Baso # (Auto) 0.1 Sodium 138 Potassium 4.5 Chloride 101 Carbon Dioxide 32 H Anion Gap 10 BUN 11 Creatinine 0.6 L Est GFR ( Amer) > 60 Est GFR (Non-Af Amer) > 60 Random Glucose 89 Calcium 9.7 Total Bilirubin 0.3 AST 29 ALT 22 Alkaline Phosphatase 72 Total Protein 7.1 Albumin 4.2 Globulin 2.9 Albumin/Globulin Ratio 1.5 Assessment & Plan - Assessment and Plan (Free Text) Plan: iv zosyn Surgical consult Amlodipine Paroxetine Regular diet IV fluid Acetaminophen Toradol 30 mg IV every 6 as needed for pain Protonix 40 mg Lovenox 40 mg subcu daily
[2018-06-05] MEDS: Piperacill/Tazo 3.375gm in Dex 3.375 GM/50 ML BAG IVPB SCH ×4 (00:39→18:44)
[2018-06-05 06:45] LABS: BLOOD UREA NITROGEN 11 mg/dL (7-17); CALCIUM 9.8 mg/dl (8.6-10.4); GFR NON-AFRICAN AMERICAN > 60
[2018-06-05 06:47] LABS: HEMOGLOBIN 13.2 g/dL (11.0-16.0); MEAN CORPUSCULAR HEMOGLOBIN 30.4 pg (27.0-31.0); MEAN CORPUSCULAR HGB CONC 33.8 g/dL (33.0-37.0); MEAN PLATELET VOLUME 8.7 fL (7.2-11.7); RBC 4.35 Mil/uL (3.80-5.20); RED CELL DISTRIBUTION WIDTH 13.7 % (11.5-14.5); WHITE BLOOD COUNT 6.9 K/uL (4.8-10.8)
--- NOTE | 2018-06-05 08:11 | CP.PCM.PN ---
Subjective - Date & Time of Evaluation Date of Evaluation: 06/05/18 Time of Evaluation: 07:15 - Subjective Subjective: General Surgery progress note for Dr. Ames Patient seen and examined this am at bedside. No acute events overnight. pt states she is feeling well and without abdominal pain. She endorses some burning over the skin at her ostomy site nd the need for relatively frequent changes of her wafer d/t leakage. She otherwise denies BARNETT, f/c, n/v, abdominal pain, stool changes and any pain/weakness in her extremities. Objective - Vital Signs/Intake and Output Vital Signs (last 24 hours): Temp Pulse Resp BP Pulse Ox 98 F 64 20 114/69 99 06/05/18 00:00 06/05/18 00:00 06/05/18 00:00 06/05/18 00:00 06/05/18 00:00 - Medications Medications: Current Medications Acetaminophen (Tylenol 325mg Tab) 650 mg PO Q6 PRN PRN Reason: Pain, Mild (1-3) Amlodipine Besylate (Norvasc) 5 mg PO DAILY [facility] Piperacillin Sod/Tazobactam Sod (Zosyn 3.375 Gm Iv Premix) 3.375 gm in 50 mls @ 200 mls/hr IVPB Q6H [facility]; Protocol Last Admin: 06/05/18 06:01 Dose: 200 mls/hr Ketorolac Tromethamine (Toradol) 30 mg IVP Q6 PRN PRN Reason: Pain, moderate (4-7) Pantoprazole Sodium (Protonix Ec Tab) 40 mg PO DAILY [facility] Paroxetine HCl (Paxil) 10 mg PO DAILY [facility] Pneumococcal Polyvalent Vaccine (Pneumovax 23 Vaccine) 0.5 ml IM .ONCE ONE Stop: 06/06/18 10:01 - Labs Labs: 06/05/18 06:24 06/05/18 06:24 - Constitutional Appears: Well, Non-toxic, No Acute Distress - Head Exam Head Exam: ATRAUMATIC, NORMOCEPHALIC - Eye Exam Eye Exam: EOMI - ENT Exam ENT Exam: Mucous Membranes Moist - Respiratory Exam Respiratory Exam: NORMAL BREATHING PATTERN - Cardiovascular Exam Cardiovascular Exam: REGULAR RHYTHM - GI/Abdominal Exam GI & Abdominal Exam: Soft. absent: Guarding, Tenderness Additional comments: small 3-5 mm opening at inferior portion of midline incision site, serosanguinous fluid expressed no purulent fluid, no induration or cellulitic skin changes over incision site. dressing changed at bedside, ostomy is pink patent and productive of stool, mild skin excoriation surrounding ostomy site - Neurological Exam Neurological Exam: Alert, Awake, Oriented x3 - Psychiatric Exam Psychiatric exam: Normal Affect, Normal Mood - Skin Skin Exam: Dry, Warm. absent: Erythema Additional comments: small 3-5 mm opening at inferior portion of midline incision site, serosan guinous fluid expressed no purulent fluid, no induration or cellulitic skin changes over incision site Assessment and Plan - Assessment and Plan (Free Text) Assessment: 52 y/o F w/ surgical wound s/p sigmoidectomy w/ diverting loop ileostomy, POD 33 Plan: - f/u Wound Cx - IV Abx - daily dressing changes - warm compresses - monitor ostomy output - wound care/ostomy nurse consulted for education regarding wafer placement and types for leakage avoidance and skin care - encourage OOB to chair/Amb - will discuss with Dr. Ames, further recs per him Edwina Iverson, PGY 1
[2018-06-05] MEDS: Pantoprazole 40 mg EC Tab PO SCH (09:07)
[2018-06-05] MEDS ORDERED: [UNRECOGNIZED DRUG - OTHER] MC SCH (10:00)
--- NOTE | 2018-06-05 12:58 | CP.PCM.PN ---
<Don Long - Last Filed: 06/05/18 13:10> Subjective - Date & Time of Evaluation Date of Evaluation: 06/05/18 Time of Evaluation: 12:58 - Subjective Subjective: 52 year old female with a past medical history of anxiety, chronic body pain and diverticulitis who presents to the hospital after reporting abdominal pain and w ound seepage near the site of ileostomy. Patient was seen in the clinic last week and was told to follow up with Dr. Ames for further management. Patient states the pain began to intensify while at home. Patient also reported wound seepage for the past couple of days. Patient denies any fevers, chills, headaches, dizziness, changes in vision, or any other complaints. PMHx: see above, anxiety, chronic body pain Meds: reviewed in chart NKDA PSHx: lap appy (1988), lap paresh (2004), tubal ligation (1989), L ankle surgery (2017), sigmoidectomy w/ diverting loop ileostomy SHx: denies tobacco, EtOH use; admits to marijuana use FHx:noncontributory Objective - Vital Signs/Intake and Output Vital Signs (last 24 hours): Temp Pulse Resp BP Pulse Ox 98.1 F 80 20 128/84 95 06/05/18 08:00 06/05/18 08:00 06/05/18 08:00 06/05/18 08:00 06/05/18 08:00 - Medications Medications: Current Medications Acetaminophen (Tylenol 325mg Tab) 650 mg PO Q6 PRN PRN Reason: Pain, Mild (1-3) Amlodipine Besylate (Norvasc) 5 mg PO DAILY [facility] Last Admin: 06/05/18 09:07 Dose: 5 mg Heparin Sodium (Porcine) (Heparin) 5,000 units SC Q12 [facility] Last Admin: 06/05/18 09:07 Dose: 5,000 units Piperacillin Sod/Tazobactam Sod (Zosyn 3.375 Gm Iv Premix) 3.375 gm in 50 mls @ 200 mls/hr IVPB Q6H [facility]; Protocol Last Admin: 06/05/18 11:59 Dose: 200 mls/hr Ketorolac Tromethamine (Toradol) 30 mg IVP Q6 PRN PRN Reason: Pain, moderate (4-7) Pantoprazole Sodium (Protonix Ec Tab) 40 mg PO DAILY [facility] Last Admin: 06/05/18 09:07 Dose: 40 mg Paroxetine HCl (Paxil) 10 mg PO DAILY [facility] Last Admin: 06/05/18 09:14 Dose: 10 mg Pneumococcal Polyvalent Vaccine (Pneumovax 23 Vaccine) 0.5 ml IM .ONCE ONE Stop: 06/06/18 10:01 - Labs Labs: 06/05/18 06:24 06/05/18 06:24 - Head Exam Head Exam: ATRAUMATIC, NORMAL INSPECTION - Eye Exam Eye Exam: EOMI, Normal appearance, PERRL Pupil Exam: NORMAL ACCOMODATION, PERRL. absent: Irregular, Unequal - ENT Exam ENT Exam: Mucous Membranes Moist, Normal Oropharynx - Neck Exam Neck Exam: Normal Inspection - Respiratory Exam Respiratory Exam: Clear to Ausculation Bilateral, NORMAL BREATHING PATTERN. absent: Prolonged Expiratory Phase, Respiratory Distress - Cardiovascular Exam Cardiovascular Exam: REGULAR RHYTHM, +S1, +S2. absent: Rubs - GI/Abdominal Exam GI & Abdominal Exam: Soft, Normal Bowel Sounds. absent: Rigid, Hyperactive B owel Sounds - Extremities Exam Extremities Exam: Full ROM, Normal Inspection. absent: Pedal Edema - Back Exam Back Exam: NORMAL INSPECTION. absent: CVA tenderness (R), paraspinal tenderness - Neurological Exam Neurological Exam: Alert, Awake, CN II-XII Intact, Oriented x3 - Psychiatric Exam Psychiatric exam: Normal Affect, Normal Mood - Skin Skin Exam: Dry, Intact Assessment and Plan - Assessment and Plan (Free Text) Assessment: 52 year old female with a past medical history of anxiety, chronic body pain and diverticulitis who presents to the hospital after reporting abdominal pain and wound seepage near the site of ileostomy. Plan: 1. S/p ileostomy infection Surgery Dr. Ames consulted - :- f/u Wound Cx - IV Abx - daily dressing changes - warm compresses - monitor ostomy output - encourage OOB to chair/Amb Medications: Zosyn 3.375mg IVPB Q6 Vancomycin 1gm IVPB x1 Dose Tylenol 650mg PO Q6 PRN Toradol 30mg IVP Q6 PRN 2. Hypertension -Continue Norvasc 5mg PO DAILY 3.Anxiety -Continue Paxil 10mg PO DAILY ppx -Protonix 40mg PO DAILY -Heparin 5,000 units SC Q12 All management per Attending Dr. Adela Corbett. Don Long, PGY-2 <Faisal Corbett S - Last Filed: 06/06/18 13:38> Objective - Vital Signs/Intake and Output Vital Signs (last 24 hours): Temp Pulse Resp BP Pulse Ox 98.6 F 74 20 113/77 95 06/06/18 07:46 06/06/18 07:46 06/06/18 07:46 06/06/18 07:46 06/06/18 07:46 Intake and Output: 06/06/18 06/06/18 06:59 18:59 Intake Total 400 Balance 400 - Medications Medications: Current Medications Acetaminophen (Tylenol 325mg Tab) 650 mg PO Q6 PRN PRN Reason: Pain, Mild (1-3) Amlodipine Besylate (Norvasc) 5 mg PO DAILY [facility] Last Admin: 06/06/18 09:23 Dose: 5 mg Heparin Sodium (Porcine) (Heparin) 5,000 units SC Q12 [facility] Last Admin: 06/06/18 09:26 Dose: Not Given Piperacillin Sod/Tazobactam Sod (Zosyn 3.375 Gm Iv Premix) 3.375 gm in 50 mls @ 200 mls/hr IVPB Q6H [facility]; Protocol Last Admin: 06/06/18 12:21 Dose: 200 mls/hr Ketorolac Tromethamine (Toradol) 30 mg IVP Q6 PRN PRN Reason: Pain, moderate (4-7) Last Admin: 06/06/18 01:15 Dose: 30 mg Pantoprazole Sodium (Protonix Ec Tab) 40 mg PO DAILY [facility] Last Admin: 06/06/18 09:23 Dose: 40 mg Paroxetine HCl (Paxil) 10 mg PO DAILY [facility] Last Admin: 06/06/18 09:26 Dose: 10 mg - Labs Labs: 06/05/18 06:24 06/05/18 06:24 Attending/Attestation - Attestation I have personally seen and examined this patient.: Yes I have fully participated in the care of the patient.: Yes I have reviewed all pertinent clinical information, including history, physical exam and plan: Yes Notes (Text): 06/06/18 13:38 case seen adn d.w staff as ordered ov antioticoi
[2018-06-05] MEDS ORDERED: Vancomycin 1 gm/NS 200 ml 1 GM/200 ML BAG IVPB ONE (14:00)
--- NOTE | 2018-06-05 15:51 | CP.PCM.HP ---
History of Present Illness - History of Present Illness History of Present Illness: 52 year old female with a past medical history of anxiety, chronic body pain and diverticulitis who presents to the hospital after reporting abdominal pain and wound seepage near the site of ileostomy. Patient was seen in the clinic last week and was told to follow up with Dr. Ames for further management. Patient states the pain began to intensify while at home. Patient also reported wound seepage for the past couple of days. Patient denies any fevers, chills, headaches, dizziness, changes in vision, or any other complaints. Present on Admission - Present on Admission Any Indicators Present on Admission: No Past Patient History - Infectious Disease Hx of Infectious Diseases: None - Past Medical History & Family History Past Medical History?: Yes - Past Social History Smoking Status: Unknown If Ever Smoked - CARDIAC Hx Hypertension: Yes - PULMONARY Hx Respiratory Disorders: No - HEENT Hx HEENT Problems: No - RENAL Hx Chronic Kidney Disease: No - ENDOCRINE/METABOLIC Hx Endocrine Disorders: No - HEMATOLOGICAL/ONCOLOGICAL Hx Blood Disorders: No - INTEGUMENTARY Hx Dermatological Problems: No - MUSCULOSKELETAL/RHEUMATOLOGICAL Hx Falls: No - GASTROINTESTINAL Hx Diverticulitis: Yes - GENITOURINARY/GYNECOLOGICAL Hx Genitourinary Disorders: No - PSYCHIATRIC Hx Substance Use: No - SURGICAL HISTORY Hx Appendectomy: Yes Hx Cholecystectomy: Yes - ANESTHESIA Hx Anesthesia: Yes Hx Anesthesia Reactions: No Meds Allergies/Adverse Reactions: Allergies Allergy/AdvReac Type Severity Reaction Status Date / Time No Known Allergies Allergy Verified 06/04/18 16:55 Physical Exam - Constitutional Appears: Well - Head Exam Head Exam: ATRAUMATIC, NORMAL INSPECTION, NORMOCEPHALIC - Eye Exam Eye Exam: EOMI, Normal appearance, PERRL Pupil Exam: NORMAL ACCOMODATION, PERRL - ENT Exam ENT Exam: Mucous Membranes Moist, Normal Exam - Neck Exam Neck exam: Positive for: Normal Inspection - Respiratory Exam Respiratory Exam: Decreased Breath Sounds - Cardiovascular Exam Cardiovascular Exam: REGULAR RHYTHM, +S1, +S2 - GI/Abdominal Exam GI & Abdominal Exam: Diminished Bowel Sounds, Soft - Rectal Exam Rectal Exam: Deferred Results - Vital Signs Recent Vital Signs: Last Vital Signs Temp 98.5 F 06/05/18 15:00 Pulse 69 06/05/18 15:00 Resp 20 06/05/18 15:00 BP 120/78 06/05/18 15:00 Pulse Ox 95 06/05/18 15:00 - Labs Result Diagrams: 06/05/18 06:24 06/05/18 06:24 Labs: Laboratory Results - last 24 hr 06/04/18 06/04/18 06/05/18 17:35 17:35 06:24 WBC 6.7 6.9 RBC 4.25 4.35 Hgb 12.7 D 13.2 Hct 37.9 39.1 MCV 89.3 90.0 MCH 29.8 30.4 MCHC 33.4 33.8 RDW 13.7 13.7 Plt Count 362 D 373 MPV 8.2 8.7 Neut % (Auto) 56.8 Lymph % (Auto) 27.8 [place] % (Auto) 10.8 H Eos % (Auto) 3.4 Baso % (Auto) 1.2 Neut # (Auto) 3.8 Lymph # (Auto) 1.9 [place] # (Auto) 0.7 Eos # (Auto) 0.2 Baso # (Auto) 0.1 Sodium 138 Potassium 4.5 Chloride 101 Carbon Dioxide 32 H Anion Gap 10 BUN 11 Creatinine 0.6 L Est GFR ( Amer) > 60 Est GFR (Non-Af Amer) > 60 POC Glucose (mg/dL) Random Glucose 89 Calcium 9.7 Phosphorus Magnesium Total Bilirubin 0.3 AST 29 ALT 22 Alkaline Phosphatase 72 Total Protein 7.1 Albumin 4.2 Globulin 2.9 Albumin/Globulin Ratio 1.5 06/05/18 06/05/18 06/05/18 06:24 07:33 11:29 WBC RBC Hgb Hct MCV MCH MCHC RDW Plt Count MPV Neut % (Auto) Lymph % (Auto) [place] % (Auto) Eos % (Auto) Baso % (Auto) Neut # (Auto) Lymph # (Auto) [place] # (Auto) Eos # (Auto) Baso # (Auto) Sodium 137 Potassium 4.2 Chloride 98 Carbon Dioxide 33 H Anion Gap 11 BUN 11 Creatinine 0.7 Est GFR ( Amer) > 60 Est GFR (Non-Af Amer) > 60 POC Glucose (mg/dL) 92 92 Random Glucose 91 Calcium 9.8 Phosphorus 4.4 Magnesium 2.1 Total Bilirubin AST ALT Alkaline Phosphatase Total Protein Albumin Globulin Albumin/Globulin Ratio Assessment & Plan - Assessment and Plan (Free Text) Plan: 52 year old female with a past medical history of anxiety, chronic body pain and diverticulitis who presents to the hospital after reporting abdominal pain and wound seepage near the site of ileostomy. Plan: 1. S/p ileostomy infection Surgery Dr. Ames consulted - :- f/u Wound Cx - IV Abx - daily dressing changes - warm compresses - monitor ostomy output - encourage OOB to chair/Amb Medications: Zosyn 3.375mg IVPB Q6 Vancomycin 1gm IVPB x1 Dose Tylenol 650mg PO Q6 PRN Toradol 30mg IVP Q6 PRN 2. Hypertension -Continue Norvasc 5mg PO DAILY 3.Anxiety -Continue Paxil 10mg PO DAILY ppx -Protonix 40mg PO DAILY -Heparin 5,000 units SC Q12
[2018-06-06] MEDS: Piperacill/Tazo 3.375gm in Dex 3.375 GM/50 ML BAG IVPB SCH ×3 (01:00→12:21)
[2018-06-06 07:49] VITALS: PULSE 74
[2018-06-06] MEDS: Pantoprazole 40 mg EC Tab PO SCH (09:23)
--- NOTE | 2018-06-06 09:53 | CP.PCM.PN ---
<Don Long - Last Filed: 06/06/18 09:54> Subjective - Date & Time of Evaluation Date of Evaluation: 06/06/18 Time of Evaluation: 09:52 - Subjective Subjective: Medicine Progress Note: Patient seen and examined at bedside. Per nursing no acute events occurred overnight .Patient denies any fevers, chills, headaches, dizziness, changes in vision, abdominal pain, or any other complaints. Objective - Vital Signs/Intake and Output Vital Signs (last 24 hours): Temp Pulse Resp BP Pulse Ox 98.6 F 74 20 113/77 95 06/06/18 07:46 06/06/18 07:46 06/06/18 07:46 06/06/18 07:46 06/06/18 07:46 Intake and Output: 06/06/18 06/06/18 06:59 18:59 Intake Total 400 Balance 400 - Medications Medications: Current Medications Acetaminophen (Tylenol 325mg Tab) 650 mg PO Q6 PRN PRN Reason: Pain, Mild (1-3) Amlodipine Besylate (Norvasc) 5 mg PO DAILY [facility] Last Admin: 06/06/18 09:23 Dose: 5 mg Heparin Sodium (Porcine) (Heparin) 5,000 units SC Q12 [facility] Last Admin: 06/06/18 09:26 Dose: Not Given Piperacillin Sod/Tazobactam Sod (Zosyn 3.375 Gm Iv Premix) 3.375 gm in 50 mls @ 200 mls/hr IVPB Q6H [facility]; Protocol Last Admin: 06/06/18 06:00 Dose: 200 mls/hr Ketorolac Tromethamine (Toradol) 30 mg IVP Q6 PRN PRN Reason: Pain, moderate (4-7) Last Admin: 06/06/18 01:15 Dose: 30 mg Pantoprazole Sodium (Protonix Ec Tab) 40 mg PO DAILY [facility] Last Admin: 06/06/18 09:23 Dose: 40 mg Paroxetine HCl (Paxil) 10 mg PO DAILY [facility] Last Admin: 06/06/18 09:26 Dose: 10 mg Pneumococcal Polyvalent Vaccine (Pneumovax 23 Vaccine) 0.5 ml IM .ONCE ONE Stop: 06/06/18 10:01 Last Admin: 06/06/18 09:27 Dose: Not Given - Labs Labs: 06/05/18 06:24 06/05/18 06:24 - Head Exam Head Exam: ATRAUMATIC, NORMAL INSPECTION - Eye Exam Eye Exam: EOMI, Normal appearance, PERRL Pupil Exam: NORMAL ACCOMODATION, PERRL. absent: Irregular, Unequal - ENT Exam ENT Exam: Mucous Membranes Moist, Normal Oropharynx - Respiratory Exam Respiratory Exam: Clear to Ausculation Bilateral, NORMAL BREATHING PATTERN. absent: Prolonged Expiratory Phase, Respiratory Distress - Cardiovascular Exam Cardiovascular Exam: REGULAR RHYTHM, +S1, +S2 - GI/Abdominal Exam GI & Abdominal Exam: Soft, Normal Bowel Sounds. absent: Rigid, Hyperactive Bowel Sounds - Extremities Exam Extremities Exam: Full ROM, Normal Inspection. absent: Pedal Edema - Back Exam Back Exam: NORMAL INSPECTION. absent: paraspinal tenderness - Neurological Exam Neurological Exam: Alert, Awake, CN II-XII Intact, Oriented x3 - Psychiatric Exam Psychiatric exam: Normal Affect, Normal Mood. absent: Depressed - Skin Skin Exam: Dry, Intact, Normal Color Assessment and Plan - Assessment and Plan (Free Text) Plan: 52 year old female with a past medical history of anxiety, chronic body pain and diverticulitis who presents to the hospital after reporting abdominal pain and wound seepage near the site of ileostomy. Plan: 1. S/p ileostomy infection Surgery Dr. Ames consulted - :- f/u Wound Cx - IV Abx - daily dressing changes - warm compresses - monitor ostomy output - encourage OOB to chair/Amb Medications: Zosyn 3.375mg IVPB Q6 Vancomycin 1gm IVPB x1 Dose Tylenol 650mg PO Q6 PRN Toradol 30mg IVP Q6 PRN 2. Hypertension -Continue Norvasc 5mg PO DAILY 3.Anxiety -Continue Paxil 10mg PO DAILY ppx -Protonix 40mg PO DAILY -Heparin 5,000 units SC Q12 Dispo: Patient stable for discharge. Discharge Instructions: 1.F/u with PMD within 5 days of discharge. 2.Return to hospital for any other complaints. Medications: All management per Attending Dr. Adela Corbett. Don Long, PGY-2 <Faisal Corbett S - Last Filed: 06/06/18 13:37> Objective - Vital Signs/Intake and Output Vital Signs (last 24 hours): Temp Pulse Resp BP Pulse Ox 98.6 F 74 20 113/77 95 06/06/18 07:46 06/06/18 07:46 06/06/18 07:46 06/06/18 07:46 06/06/18 07:46 Intake and Output: 06/06/18 06/06/18 06:59 18:59 Intake Total 400 Balance 400 - Medications Medications: Current Medications Acetaminophen (Tylenol 325mg Tab) 650 mg PO Q6 PRN PRN Reason: Pain, Mild (1-3) Amlodipine Besylate (Norvasc) 5 mg PO DAILY [facility] Last Admin: 06/06/18 09:23 Dose: 5 mg Heparin Sodium (Porcine) (Heparin) 5,000 units SC Q12 [facility] Last Admin: 06/06/18 09:26 Dose: Not Given Piperacillin Sod/Tazobactam Sod (Zosyn 3.375 Gm Iv Premix) 3.375 gm in 50 mls @ 200 mls/hr IVPB Q6H [facility]; Protocol Last Admin: 06/06/18 12:21 Dose: 200 mls/hr Ketorolac Tromethamine (Toradol) 30 mg IVP Q6 PRN PRN Reason: Pain, moderate (4-7) Last Admin: 06/06/18 01:15 Dose: 30 mg Pantoprazole Sodium (Protonix Ec Tab) 40 mg PO DAILY [facility] Last Admin: 06/06/18 09:23 Dose: 40 mg Paroxetine HCl (Paxil) 10 mg PO DAILY [facility] Last Admin: 06/06/18 09:26 Dose: 10 mg - Labs Labs: 06/05/18 06:24 06/05/18 06:24 Attending/Attestation - Attestation I have personally seen and examined this patient.: Yes I have fully participated in the care of the patient.: Yes I have reviewed all pertinent clinical information, including history, physical exam and plan: Yes Notes (Text): 06/06/18 13:36 case seen and d.w staff and resident, concurred with finding and management..getting iv antibitoc follwup with surgeon
[2018-06-06] MEDS ORDERED: Pneumococcal 23-Valent Vaccine IM ONE (10:00)
[2018-06-06 16:11] VITALS: BP 109/74; TEMP 98.7; O2SAT 97
== END 2018-06-06 17:55 | disposition home or self-care (01) | DRG 863 ==
LOC: C.ER 16:52 → C.3T 18:19
PROVIDERS: ADMIT Internal Medicine Nephrology; ATTEND Internal Medicine Nephrology
DX: T81.41XA Infection following a procedure, superficial incisional surgical site, initial encounter (principal); I10 Essential (primary) hypertension; L02.92 Furuncle, unspecified; Z93.2 Ileostomy status; Z90.49 Acquired absence of other specified parts of digestive tract; Z87.891 Personal history of nicotine dependence